=== PATIENT | female | born 1945 | race Caucasian/White ===

== ENCOUNTER 2017-04-13 20:35 | Inpatient (IN) | payer MEDICARE ==
[2017-04-13 21:50] LABS: #Eosinphils 0.1 thou/uL (0.0-0.7); #Lymphocytes 0.6 thou/uL (1.20-3.40); #Monocytes 0.4 thou/uL (0.11-0.59); #Neutrophils 3.9 thou/uL (1.40-6.50); %Eosinophils 1.2 % (0.0-10.0); %Monocytes 8.2 % (0.0-10.0); Anisocytosis SLIGHT = 6-15 cells (100X) (0-5/hpf); Hematocrit 28.3 % (36.0-47.0); Mean Platelet Volume 9.3 fL (7.4-10.4); Red Blood Cell (RBC) Count 3.78 mill/uL (4.20-5.40)
[2017-04-13 21:55] LABS: ALT (SGPT) 15 U/L (8-55); AST (SGOT) 17 U/L (5-34); Alkaline Phosphatase 99 U/L (40-150); Anion Gap 13 mmol/L (10-20); BUN (Urea Nitrogen) 11 mg/dL (9.8-20.1); Bilirubin, Total 0.6 mg/dL (0.2-1.2); CK (CPK) 68 U/L (29-168); Calc. Creatinine Clearance 0 mL/min (70-130); Calcium 8.7 mg/dL (7.8-10.44); Carbon Dioxide 26 mmol/L (23-31); Chloride 100 mmol/L (98-107); Estimated GFR-MDRD 74; Globulin 3.6 g/dL (2.4-3.5); Protein, Total 6.8 g/dL (6.0-8.3)
[2017-04-13 22:04] LABS: Troponin I 0.022 ng/mL (< 0.028)
--- NOTE | 2017-04-13 22:56 | RAD ---
RADIOGRAPH CHEST 1 VIEW: Date: 04/13/2017 Time: 9:07 p.m. HISTORY: A 71-year-old female with acute chest pain. COMPARISON: 10/21/2016 FINDINGS: There is cardiomegaly. Sternotomy wires are again noted. There is a few findings of diffuse pulmon anupama vascular engorgement, and another new finding of diffuse, mild, interstitial densities. The lat eral costophrenic angles are not significantly effaced. No pneumothorax or consolidation. IMPRESSION: Congestive heart failure with mild pulmonary interstitial edema. JN [] POS: [facility]
[2017-04-13] MEDS ORDERED: Ondansetron ODT 4 MG TAB SL PRN (23:21)
[2017-04-13] MEDS ORDERED: Ondansetron HCl/PF 4 MG/2 ML Vial IVP PRN (23:21)
[2017-04-13 23:49] VITALS: BMI 36.6
[2017-04-14 00:59] LABS: Troponin I 2.054 ng/mL (< 0.028)
[2017-04-14] MEDS ORDERED: Enoxaparin Sodium 120 MG/0.8 ML SYRINGE SC SCH ×2 (01:30→14:00)
[2017-04-14] MEDS ORDERED: Acetaminophen 325 MG TAB PO SCH (02:15)
[2017-04-14] MEDS ORDERED: Nitroglycerin 0.4 MG TAB (25 Tab Bottle) SL PRN (02:21)
[2017-04-14] MEDS ORDERED: Nitroglycerin 4.9 GM Bottle SL PRN (02:23)
[2017-04-14] MEDS ORDERED: HumaLOG 300 UNITS/3 ML VIAL SC PRN (02:23)
[2017-04-14] MEDS ORDERED: Dextrose 50% Abboject 50 ML SYRINGE SLOW IVP PRN (02:24)
[2017-04-14] MEDS ORDERED: Dextrose 5% in Water 1,000 ML IV PRN (02:24)
--- NOTE | 2017-04-14 03:18 | HP ---
PRIMARY CARE PHYSICIAN: Dr. Jd Goldman, practices in [place], [place]. PATIENT'S BEARING RING ASSEMBLER: Dr. Ramon Benítez at [facility] at [facility] in [place]. CHIEF COMPLAINT: Chest pain. HISTORY OF PRESENT ILLNESS: Ms. Shaw is a pleasant 71-year-old lady who was seen at [facility] on 04/14/2017. She reports that she had coronary artery bypass graft x3, last year. About 3 or 4 months ago, she s tarted having exertional dyspnea. It was found that one of her grafts was not working, and she had a procedure done at that time. Since then, she has had angina on a daily basis. It usually respond s to nitroglycerin. For the first time yesterday, the angina did not respond to nitroglycerin. She therefore presented to the emergency room. She describes that her pain was dull, aching, across the chest, pressure-like, nonradiating, worse w ith exercise. No known relieving factors. It was not accompanied by nausea or vomiting. The patient lives in [place], but was visiting [place] this weekend. REVIEW OF SYSTEMS: The following complete review of systems was negative, unless otherwise mentione d in the HPI or below: Constitutional: Weight loss or gain, sense of well-being, ability to conduct usual activities, exer cise tolerance. Skin/Breast: Rash, itching, changes in hair growth or loss, nail changes, breast lumps, tenderness, swelling, nipple discharge. Eyes: Vision, double vision, tearing, blind spots, pain. ENT/Mouth: Headaches (location, time of onset, duration, precipitating factors), vertigo, lighthead edness, injury. Vision, double vision, tearing, blind spots, pain, nose bleeding, colds, obstruction , discharge, dental difficulties, gingival bleeding, dentures, neck stiffness, pain, tenderness, mas ses in thyroid or other areas. Cardiovascular: Precordial pain, substernal distress, palpitations, syncope, dyspnea on exertion, o rthopnea, nocturnal paroxysmal dyspnea, edema, cyanosis, hypertension, heart murmurs, varicosities, phlebitis, claudication. Respiratory: Pain, shortness of breath, wheezing, stridor, cough, hemoptysis, fever or night sweats Gastrointestinal: Poor appetite, dysphagia, indigestion, abdominal pain, heartburn, eructation, dre sea, vomiting, hematemesis, jaundice, constipation, or diarrhea, abnormal stools (jose-colored, angus y, bloody, greasy, foul smelling), flatulence, hemorrhoids, recent changes in bowel habits. Genitourinary: Urgency, frequency, dysuria, nocturia, hematuria, polyuria, oliguria, unusual (or ch vinay in) color of urine, stones, hesitancy, change in size of stream, dribbling, acute retention or incontinence, libido, potency. Musculoskeletal: Pain, swelling, redness or heat of muscles or joints, limitation, of motion, muscu lar weakness, atrophy, cramps. Neurologic/Psychiatric: Convulsions, paralyses, tremor, incoordination, parasthesias, difficulties with memory of speech, sensory or motor disturbances, or muscular coordination (ataxia, tremor), emo tional problems, anxiety, depression, previous psychiatric care, unusual perceptions, hallucinations . Allergy/Immunologic: Skin rash, anemia, bleeding tendency, polydipsia, polyuria, intolerance to hea t or cold. PAST MEDICAL HISTORY: Significant for diabetes mellitus, coronary artery disease, dyslipidemia, hyp ertension, hypothyroidism. PAST SURGICAL HISTORY: Significant for coronary artery bypass graft, cardiac catheterization, bilat eral oophorectomy, wisdom tooth surgery, right foot second and third toe surgery, cholecystectomy, c esarean section x2, hysterectomy and thyroidectomy. PSYCHIATRIC HISTORY: Bipolar disorder. SOCIAL HISTORY: The patient denies tobacco use, alcohol use or recreational drug use. FAMILY HISTORY: Significant for a ruptured aorta in her Father, heart disease in her Mother and lef t ventricular thrombus in her Brother. CODE STATUS: I discussed her code status. She is FULL CODE. ALLERGIES: ADHESIVE TAPE. CURRENT MEDICATIONS: Aspirin 81 mg daily, Plavix 75 mg daily, Flonase 50 mcg 2 puffs 2 times a day, fluocinonide topical ointment 2 times a day, isosorbide mononitrate 30 mg daily, Lantus insulin 120 units subcutaneously daily, metformin 2000 mg daily, metoprolol 25 mg daily, colestipol 2 grams 3 t imes a day, Humalog insulin 20 units 3 times a day, Premarin cream. PHYSICAL EXAMINATION: GENERAL: Ms. Shaw is awake and alert, not in acute distress. She is obese. VITAL SIGNS: Blood pressure is 116/60, pulse is 71. She is breathing at rate of 16, and saturating 97% on room air. Temperature is 99.3 degrees Fahrenheit. EYES: No scleral icterus. No conjunctival pallor. ENT: Moist mucosal membranes, no oropharyngeal erythema or exudate. NECK: Supple, nontender, normal range of movement. Trachea is midline. RESPIRATORY: Accessory muscles of breathing are not active. Chest wall movements are symmetric alejandro aterally. LUNGS: Clear to auscultation without wheeze, rhonchi or crepitations. CARDIOVASCULAR: S1 and S2 are heard, regular. LUNGS: Peripheral pulses palpable. No carotid bruit, no pericardial rub. ABDOMEN: Distended, nontender, bowel sounds heard, no hepatomegaly, no splenomegaly. SKIN: She has what appears to be a small ruptured abscess over the left lower abdominal wall. Othe rwise, no rashes or subcutaneous nodules. NEUROLOGIC: Cranial nerves II through XII are intact. Deep tendon reflexes are 2+. MUSCULOSKELETAL: Power is 5/5 in all 4 extremities. Normal range of movement at all major extremit y joints. LYMPHATIC: No cervical lymphadenopathy. PSYCHIATRIC: Normal mood, normal affect, patient is oriented to person, place, and time. LABORATORY DATA: Ms. Shaw's labs and investigations were reviewed. I reviewed her electrocardiogr am, which shows normal sinus rhythm, with bifascicular block, no ST changes to suggest an acute ivory nary syndrome. I also reviewed her chest x-ray, which does not show any pulmonary infiltrates. She does have interstitial edema. Laboratory investigation show a normal white count, microcytic anemi a with hemoglobin 8.8, thrombocytopenia with platelet count 117,000, with last known platelet count of 96,000 on 10/21/2016, decreased sodium of 135, elevated glucose of 350, decreased albumin of 3.2, elevated globulin of 3.6, otherwise unremarkable comprehensive metabolic profile, elevated BNP of 6 75 and troponin I which is elevated at 2.054 at 0022 hours today, up from 0.022 at 2121 hours yester day. ASSESSMENT AND PLAN: Ms. Shaw is a pleasant 71-year-old lady who was seen at [facility] on 04/14/2017. Her problem list includes: 1. Chest pain: Most likely secondary to cardiac causes, we will also check D-dimer to rule out pul monary embolism. 2. Rln-SX-ocueitiri myocardial infarction: Ms. Shaw's troponin I has trended into the acute myoca rdial infarction territory. We will start her on low molecular weight heparin, continue Plavix and increase aspirin dose to 325 mg daily. We will check 2D echocardiogram and obtain Cardiology Servic e input. 3. Diabetes mellitus: Continue home medications, start Accu-Cheks and insulin sliding scale. 4. Dyslipidemia: Continue statins. 4. Hypothyroidism: Continue Synthroid. 6. Hypertension: Resume home medications, monitor vital signs and titrate antihypertensives as nee ded. Many thanks for allowing me to participate in your patient's care. Please feel free to contact me w ith any questions or concerns. LEVEL OF RISK: High. LEVEL OF COMPLEXITY: High. I am obtaining records from [facility], so that we can have a better understanding of her p revious cardiac issues.
[2017-04-14 03:45] LABS: #Eosinphils 0.1 thou/uL (0.0-0.7); #Monocytes 0.5 thou/uL (0.11-0.59); #Neutrophils 4.1 thou/uL (1.40-6.50); %Basophils 0.3 % (0.0-1.0); %Lymphocytes 17.1 % (21.0-51.0); %Monocytes 8.2 % (0.0-10.0); Hematocrit 26.6 % (36.0-47.0); Mean Platelet Volume 8.6 fL (7.4-10.4); Red Blood Cell (RBC) Count 3.56 mill/uL (4.20-5.40); White Blood Cell (WBC) Count 5.7 thou/uL (4.8-10.8)
[2017-04-14 03:48] LABS: Anion Gap 11 mmol/L (10-20); BUN (Urea Nitrogen) 11 mg/dL (9.8-20.1); Calc. Creatinine Clearance 150 mL/min (70-130); Calcium 8.4 mg/dL (7.8-10.44); Carbon Dioxide 26 mmol/L (23-31); Chloride 102 mmol/L (98-107); Estimated GFR-MDRD Greater than 90
[2017-04-14 03:58] LABS: Hemoglobin A1c 7.5 % (4.0-6.0)
[2017-04-14 04:04] LABS: Critical Call CKMBM 0
[2017-04-14] MEDS: Levothyroxine Sodium 150 MCG TAB PO SCH (06:00)
[2017-04-14] MEDS ORDERED: Levothyroxine Sodium 75 MCG TAB PO SCH (06:00)
[2017-04-14] MEDS ORDERED: metFORMIN XR 500 MG TAB PO SCH (08:00)
[2017-04-14 08:38] LABS: Troponin I 12.808 ng/mL (< 0.028)
[2017-04-14] MEDS ORDERED: Non-Formulary Item 1 EACH (Insulin Glargine,Hum.Rec.Anlog 70 UNIT) SQ SCH (09:00)
[2017-04-14] MEDS ORDERED: Aspirin 325 MG TAB PO SCH (09:00)
[2017-04-14] MEDS: Clopidogrel Bisulfate 75 MG TAB PO SCH (09:33)
[2017-04-14] MEDS: Insulin Detemir 100 UNITS/ML 70 UNITS in Pre-Filled Syringe 1 EACH SC SCH (09:37)
--- NOTE | 2017-04-14 12:07 | CT ---
CTA OF THE CHEST WITH CONTRAST: Date: 04/14/17 COMPARISON: None. HISTORY: Chest pain and shortness of breath. Patient had cardiac ablation 6 months ago. TECHNIQUE: Multiple contiguous axial images were obtained in a CT of the chest with contrast. Sagittal and ivory nal reformats were performed. FINDINGS: The pulmonary arteries are well opacified without filling defect to suggest pulmonary emboli. The he art is enlarged. Calcifications are seen in the coronary arteries and aorta. The patient is status p ost CABG. There is a small right pleural effusion. No focal infiltrates are seen in the lungs. No suspicious p ulmonary mass is present. The visualized subdiaphragmatic structures are unremarkable. Degenerative changes are seen in the sp ine. The chest wall soft tissues are unremarkable. IMPRESSION: 1. No evidence of pulmonary thromboembolism. 2. Small right pleural effusion. POS: [facility]
[2017-04-14] MEDS ORDERED: Nitroglycerin 50 MG/250 ML BOT 250 ML IVPB SCH (12:30)
[2017-04-14] MEDS: Aggrastat 12.5 MG/250 ML 250 ML IVPB SCH ×2 (13:35→23:23)
--- NOTE | 2017-04-14 13:54 | CON ---
DATE OF CONSULTATION: 04/14/2017 REASON FOR CONSULTATION: Non-Q myocardial infarction and chest pain. HISTORY OF PRESENT ILLNESS: Ms. Shaw is a pleasant 71-year-old woman with extensive cardiac histor y. She states she has had stent placed early last year. They failed and was followed by bypass lorena rosado x3 in 05/2016. This is all in [place], [place]. She then states how she had more symptoms and required another angiogram in July or August of this year. She was found to have a failed vera t of the three grafts. She also required rotablader followed by stent implantation to the proximal portion of the circumflex artery. She states she did well for several months and then has been havi ng recurrent episodes of pain. She is normally controlled with nitroglycerin. She does state glyce rin during this episode, it did not work and proceeded to the emergency room. Her troponin is gone from 2 to 6 to 12. She is currently pain free. She did have an episode this morning of pain upon w alking to the bathroom that has resolved. PAST MEDICAL AND SURGICAL HISTORY: Extensive cardiac history as described below, diabetes mellitus, hyperlipidemia, hypertension, hypothyroidism, oophorectomy, tooth extraction, cholecystectomy, C-se ction, hysterectomy, thyroidectomy, and bipolar disorder. SOCIAL HISTORY: No current tobacco or alcohol use. She has a very supportive . FAMILY HISTORY: Positive for CAD. ALLERGIES: ADHESIVE TAPE. HOME MEDICATIONS: Include aspirin, Plavix, isosorbide, Flonase, Lantus, metformin, metoprolol, erasmo stipol, Humalog and Premarin. REVIEW OF SYSTEMS: Ten-point review of systems is reviewed and is as above, otherwise negative. PHYSICAL EXAMINATION: GENERAL: The patient is a pleasant female who is in no acute distress. The patient appears her sta sergio age. VITAL SIGNS: Blood pressure 100/52, pulse 86, temperature 98.3. NEUROLOGIC: The patient is alert and oriented x3 with no focal neurologic deficits. HEENT: Sclerae without icterus. Mouth has moist mucous membranes with normal pallor. NECK: No JVD. Carotid upstroke brisk. No bruits bilaterally. LUNGS: Clear to auscultation with unlabored respirations. BACK: No scoliosis or kyphosis. CARDIAC: Regular rate and rhythm with normal S1 and S2. No S3 or S4 noted. No significant rubs, m urmurs, thrills, or gallops noted throughout the precordium. PMI is not displaced. There is no par asternal heave. ABDOMEN: Soft, nontender, nondistended. No peritoneal signs present. No hepatosplenomegaly. No a bnormal striae. EXTREMITIES: 2+ femoral and 2+ dorsalis pedis pulses. No cyanosis, clubbing, or edema. SKIN: No gross abnormalities. EKG: Normal sinus rhythm with right bundle branch block, ST wave changes suggesting ischemia. PERTINENT LABS: Hemoglobin is 8.6 and creatinine 0.6. IMPRESSION: 1. Non-Q myocardial infarction. 2. Coronary artery disease. 3. Status post bypass surgery. RECOMMENDATIONS: Ms. Shaw's cardiac history is certainly complex. The only records I have from he r previous workup include a stent placed to the circumflex artery after rotablader in early 2017. T here is no mention of the other anatomy. At this point, Ms. Shaw is chest pain free. Plan is to t ransfer to the ICU for IV nitroglycerin in addition to Aggrastat and continue Lovenox. I would like to obtain records and speak to her music copyist prior to proceeding. It is unusual for bypass t to occlude within the first 2 years. I am concerned about small vessel disease. She may also hav e had in-stent restenosis noted to the circumflex stent. I discussed coronary angiography and possi ble PCI. I discussed the procedure in full detail with Ms. Shaw. The risks of the procedure were also discussed. The risks included but not limited to the following: , stroke, CT, need for em ergency surgery, loss of limb, bleeding, and infection, as well as a reaction to the dye causing kid jeni failure and needing long-term dialysis. Other risks include acute stent thrombosis and restenos is, vessel dissection, perforation, need for emergency surgery in addition to distal embolization ca using chronic foot discomfort as well as amputation. All questions were answered. She has had a dr ug-coated stent placed in the past and we will proceed with drug-coated stent placement if needed. She has been told in the past that she will need Plavix for life. I am also concerned about her ane jose. She states she is chronically anemic, but has not required blood transfusions in the past. We will supplement with iron. She may potentially need a transfusion after the procedure if her hemog lobin decreases. Further recommendations pending the above.
[2017-04-14 19:29] LABS: Hematocrit 29.2 % (36.0-47.0)
[2017-04-14] MEDS: Atorvastatin Calcium 20 MG TAB PO SCH (20:27)
[2017-04-14] MEDS: Acetaminophen 325 MG TAB PO PRN (20:27)
[2017-04-15 04:59] LABS: #Eosinphils 0.1 thou/uL (0.0-0.7); #Lymphocytes 0.8 thou/uL (1.20-3.40); #Monocytes 0.6 thou/uL (0.11-0.59); #Neutrophils 4.8 thou/uL (1.40-6.50); %Basophils 0.5 % (0.0-1.0); %Eosinophils 1.3 % (0.0-10.0); %Lymphocytes 12.3 % (21.0-51.0); %Monocytes 8.8 % (0.0-10.0); Anion Gap 12 mmol/L (10-20); BUN (Urea Nitrogen) 11 mg/dL (9.8-20.1); Calc. Creatinine Clearance 145 mL/min (70-130); Calcium 8.3 mg/dL (7.8-10.44); Carbon Dioxide 24 mmol/L (23-31); Chloride 101 mmol/L (98-107); Estimated GFR-MDRD Greater than 90; Hematocrit 27.2 % (36.0-47.0); Mean Platelet Volume 9.7 fL (7.4-10.4); Red Blood Cell (RBC) Count 3.66 mill/uL (4.20-5.40); White Blood Cell (WBC) Count 6.2 thou/uL (4.8-10.8)
[2017-04-15] MEDS: Levothyroxine Sodium 150 MCG TAB PO SCH (06:34)
[2017-04-15] MEDS: Clopidogrel Bisulfate 75 MG TAB PO SCH (08:04)
[2017-04-15] MEDS: Insulin Detemir 100 UNITS/ML 70 UNITS in Pre-Filled Syringe 1 EACH SC SCH (08:07)
[2017-04-15] MEDS ORDERED: Aspirin 325 MG TAB PO SCH (09:00)
[2017-04-15] MEDS: Acetaminophen 325 MG TAB PO PRN (09:06)
[2017-04-15] MEDS ORDERED: Fentanyl 100 MCG/2 ML VIAL ONE (10:05)
[2017-04-15] MEDS ORDERED: Midazolam HCl 2 mg/2 ml Vial ONE ×2 (10:05→11:09)
--- NOTE | 2017-04-15 10:30 | PRG ---
DATE OF SERVICE: 04/15/2017 I visited with Ms. Shaw on the day prior to the procedure. She was doing well without any episodes of chest pain. She was tolerating the Lovenox and Aggrastat. She was also placed on IV nitroglyce rin. I did reach out to her primary heel scorer in [place] on the day of the procedure. She has had mul tiple stents noted in the past. She has a chronically occluded saphenous vein graft to an OM branch in addition to a chronically occluded right coronary artery. Her LAD was patent with a CLIFFORD to the LAD. She also had a recent stent placed to the circumflex artery. She did arrive in the [facility] short of breath. I spoke with her nurse who states she was comfortab le until the time we were bringing her down for an angiography and became anxious. She has now impr lico. Her lungs were clear. We will proceed with angiography. All questions from the patient were answered.
[2017-04-15] MEDS ORDERED: Heparin 10,000 UNITS/1 ML VIAL ONE (10:58)
[2017-04-15] MEDS ORDERED: Aggrastat 12.5 MG/250 ML 250 ML ONE (11:09)
[2017-04-15] MEDS ORDERED: Milk Of Magnesia 30 ML UDCUP PO PRN (11:32)
[2017-04-15] MEDS ORDERED: Acetaminophen/Codeine 30-300mg Tablet PO PRN (11:32)
[2017-04-15] MEDS ORDERED: Mag-Al 1200 mg/1200 mg/30 ML UDCUP PO PRN (11:32)
[2017-04-15] MEDS ORDERED: cloNIDine 0.1 MG TAB PO PRN (11:32)
[2017-04-15] MEDS ORDERED: Sodium Chloride 0.9% 1,000 ML IV SCH (11:45)
[2017-04-15] MEDS ORDERED: Aggrastat 12.5 MG/250 ML 250 ML IVPB SCH (11:45)
[2017-04-15] MEDS: Insulin Regular 300 UNITS/3 ML VIAL SC PRN ×2 (12:13→18:12)
[2017-04-15] MEDS ORDERED: Clopidogrel Bisulfate 300 MG TAB ONE (14:53)
--- NOTE | 2017-04-15 15:15 | EKG ---
Test Reason : POST STENT X 1 G/RCA Blood Pressure : / mmHG Vent. Rate : 092 BPM Atrial Rate : 092 BPM P-R Int : 000 ms QRS Dur : 162 ms QT Int : 450 ms P-R-T Axes : 000 -71 135 degrees QTc Int : 556 ms Normal sinus rhythm Right bundle branch block Left anterior fascicular block Bifascicular block * ACUTE MA * Abnormal ECG Confirmed by HALEY THORNTON ([id number]) on 04/15/2017 3:14:54 PM Referred By: AUSTIN Confirmed By:HALEY THORNTON
[2017-04-15] MEDS ORDERED: Iopamidol 370 76% 100 ML VIAL ONE (16:21)
[2017-04-15] MEDS ORDERED: Iopamidol 370 76% 50 ML VIAL FS ONE (16:21)
--- NOTE | 2017-04-15 17:23 | PDOC.PN ---
- Subjective Encounter Start Date: 04/15/17 Encounter Start Time: 17:20 no cp no sob no f/c on iv nitroglycerin going for cath today - Objective Resuscitation Status: Resuscitation Status FULL:Full Resuscitation MAR Reviewed: Yes Vital Signs & Weight: Vital Signs (12 hours) Temp Pulse Resp Pulse Ox 04/15/17 17:00 98.1 F 04/15/17 12:00 98.0 F 04/15/17 07:38 95 04/15/17 07:25 98.2 F 83 20 95 04/15/17 07:00 98.2 F Weight Weight 247 lb 11.2 oz Most Recent Monitor Data Heart Rate from ECG 85 NIBP 105/58 NIBP BP-Mean 68 Respiration from ECG 28 SpO2 95 I&O: 04/14/17 04/15/17 04/16/17 06:59 06:59 06:59 Intake Total 1474.7 540 Output Total 200 1630 175 Balance -200 -155.3 365 Result Diagrams: 04/15/17 04:19 04/15/17 04:19 Additional Labs: Accuchecks 04/15/17 04/14/17 04/14/17 12:08 19:25 17:15 POC Glucose 197 H 183 H 137 H 04/14/17 04/14/17 04/13/17 12:00 06:02 23:21 POC Glucose 98 98 224 H Phys Exam - Physical Examination Constitutional: NAD HEENT: PERRLA Neck: no JVD Respiratory: no rales Cardiovascular: no significant murmur Gastrointestinal: no distention Musculoskeletal: pulses present Neurological: normal sensation Psychiatric: A&O x 3 Skin: normal turgor Dx/Plan (1) NSTEMI (non-ST elevated myocardial infarction) Code(s): I21.4 - NON-ST ELEVATION (NSTEMI) MYOCARDIAL INFARCTION Status: Acute (2) Diabetes mellitus Code(s): E11.9 - TYPE 2 DIABETES MELLITUS WITHOUT COMPLICATIONS Status: Acute (3) HTN (hypertension) Code(s): I10 - ESSENTIAL (PRIMARY) HYPERTENSION Status: Acute (4) Hyperlipidemia Code(s): E78.5 - HYPERLIPIDEMIA, UNSPECIFIED Status: Acute (5) Obesity (BMI 30-39.9) Code(s): E66.9 - OBESITY, UNSPECIFIED Status: Acute - Plan * doing well on iv nitroglycerin * for cath today * f/u card plan *
[2017-04-15] MEDS: ALPRAZolam 0.25 MG TAB PO PRN (19:52)
--- NOTE | 2017-04-15 21:16 | CON ---
DATE OF SERVICE: 04/15/2017 HISTORY: Ivet Shaw is a pleasant 71-year-old female from [facility]. She is here for ongoing chest pain evaluation. She had a bypass done a year ago; and shortly therea fter, she started having chest pain with exertion. Catheterization revealed a graft issue for which she underwent a Roto-Rooter procedure. For a period of time, she was still having some chest pain but is relieved with the nitroglycerin. As of yesterday that pain did not get relieved, came to the ER. She underwent cardiac catheterization today. She was found to have a single-vessel blockage i n one of the bypasses, a stent was placed in. To note, she is a nonsmoker. She is excessively obese. PAST MEDICAL HISTORY: Hypothyroidism, hypertension, diabetes, coronary artery disease. PAST SURGICAL HISTORY: Multiple bypasses, thyroid surgery, hysterectomy for cancer, gallbladder, C- section, foot surgery. REVIEW OF SYSTEMS: Otherwise, negative. MEDICATIONS FROM HOME: Metformin 1000, Protonix, nitroglycerin, metoprolol 25 Synthroid, insulin, H umalog, Plavix, calcium. PHYSICAL EXAMINATION: VITAL SIGNS: Sats 98%, pulse 80, blood pressure 130/80, respirations 18. Mallampati score is 3. CHEST: Reveals no wheezing or crackles. CARDIAC: Normal S1, S2. No gallops. ABDOMEN: Soft, no masses. LABORATORY DATA: White count 6000, H\T\H 8 and 27, platelet count 141. Electrolytes are normal. IMPRESSION: 1. Coronary artery disease, unstable angina, status post stent. 2. Morbid obesity. She had a sleep study done 4 years ago. I think that she needs to have a repea t sleep study. 3. Diabetes. 4. Hypertension with serious unknown urinary problems. PLAN: 1. Continue present cardiac care. 2. We will follow while in the ICU.
[2017-04-15] MEDS: Atorvastatin Calcium 20 MG TAB PO SCH (22:31)
[2017-04-15] MEDS: Zolpidem Tartrate 5 MG TAB PO PRN (22:31)
[2017-04-16] MEDS: Insulin Regular 300 UNITS/3 ML VIAL SC PRN ×5 (00:11→22:02)
[2017-04-16] MEDS: ALPRAZolam 0.25 MG TAB PO PRN ×3 (02:24→20:25)
[2017-04-16] MEDS: Acetaminophen 325 MG TAB PO PRN (02:24)
[2017-04-16 04:42] LABS: #Lymphocytes 0.7 thou/uL (1.20-3.40); #Monocytes 0.9 thou/uL (0.11-0.59); #Neutrophils 10.3 thou/uL (1.40-6.50); %Eosinophils 0.1 % (0.0-10.0); %Lymphocytes 5.9 % (21.0-51.0); %Monocytes 7.4 % (0.0-10.0); Hematocrit 29.6 % (36.0-47.0); Mean Platelet Volume 8.7 fL (7.4-10.4); Red Blood Cell (RBC) Count 3.97 mill/uL (4.20-5.40); White Blood Cell (WBC) Count 11.9 thou/uL (4.8-10.8)
[2017-04-16 05:12] LABS: ALT (SGPT) 26 U/L (8-55); AST (SGOT) 95 U/L (5-34); Alkaline Phosphatase 98 U/L (40-150); Anion Gap 15 mmol/L (10-20); BUN (Urea Nitrogen) 18 mg/dL (9.8-20.1); Bilirubin, Total 1.9 mg/dL (0.2-1.2); Calc. Creatinine Clearance 119 mL/min (70-130); Calcium 8.4 mg/dL (7.8-10.44); Carbon Dioxide 21 mmol/L (23-31); Chloride 99 mmol/L (98-107); Estimated GFR-MDRD 74; Globulin 3.6 g/dL (2.4-3.5); Protein, Total 6.8 g/dL (6.0-8.3)
[2017-04-16] MEDS: Levothyroxine Sodium 150 MCG TAB PO SCH (05:27)
[2017-04-16] MEDS: Clopidogrel Bisulfate 75 MG TAB PO SCH (08:56)
[2017-04-16] MEDS: Insulin Detemir 100 UNITS/ML 70 UNITS in Pre-Filled Syringe 1 EACH SC SCH (08:58)
[2017-04-16] MEDS ORDERED: Sodium Chloride 0.65% Nasal 44 ML BOT EA NARE PRN (10:37)
--- NOTE | 2017-04-16 12:41 | PDOC.PN ---
- Subjective Encounter Start Date: 04/16/17 Encounter Start Time: 12:39 Patient seen and examined. No new complaints. No overnight events - Objective Resuscitation Status: Resuscitation Status FULL:Full Resuscitation MAR Reviewed: Yes Vital Signs & Weight: Vital Signs (12 hours) Temp Pulse Resp Pulse Ox 04/16/17 12:00 98.3 F 04/16/17 08:00 98.3 F 04/16/17 07:30 98.3 F 84 23 H 98 04/16/17 07:00 98.3 F 04/16/17 04:00 98 F 04/16/17 02:48 99 Weight Weight 255 lb 4.725 oz Most Recent Monitor Data Heart Rate from ECG 83 NIBP 107/71 NIBP BP-Mean 82 Respiration from ECG 34 SpO2 92 I&O: 04/15/17 04/16/17 04/17/17 06:59 06:59 06:59 Intake Total 1474.7 1515 720 Output Total 1630 575 240 Balance -155.3 940 480 Result Diagrams: 04/16/17 04:11 04/16/17 04:11 Additional Labs: Accuchecks 04/16/17 04/16/17 04/16/17 11:57 06:39 02:10 POC Glucose 266 H 226 H 221 H 04/16/17 04/15/17 00:08 18:10 POC Glucose 200 H 200 H Phys Exam - Physical Examination Constitutional: NAD HEENT: PERRLA Neck: no JVD Respiratory: no wheezing Cardiovascular: no significant murmur Gastrointestinal: non-tender Musculoskeletal: pulses present Neurological: moves all 4 limbs Psychiatric: A&O x 3 Dx/Plan (1) NSTEMI (non-ST elevated myocardial infarction) Code(s): I21.4 - NON-ST ELEVATION (NSTEMI) MYOCARDIAL INFARCTION Status: Acute Comment: s/p cath with stent on 04/15 (2) Diabetes mellitus Code(s): E11.9 - TYPE 2 DIABETES MELLITUS WITHOUT COMPLICATIONS Status: Acute (3) HTN (hypertension) Code(s): I10 - ESSENTIAL (PRIMARY) HYPERTENSION Status: Acute (4) Hyperlipidemia Code(s): E78.5 - HYPERLIPIDEMIA, UNSPECIFIED Status: Acute (5) Obesity (BMI 30-39.9) Code(s): E66.9 - OBESITY, UNSPECIFIED Status: Acute (6) NICKI (obstructive sleep apnea) Code(s): G47.33 - OBSTRUCTIVE SLEEP APNEA (ADULT) (PEDIATRIC) Status: Acute Comment: out pt sleep study - Plan * f/u card plan * start levemir 5 bid * f/u cxr * encourage mobilization
--- NOTE | 2017-04-16 14:02 | PRG ---
DATE OF SERVICE: 04/16/2017 SUBJECTIVE: This morning, she is awake, alert, responsive. She is weak. She is having difficulty breathing, but denies any chest pain, lightheadedness. OBJECTIVE: VITAL SIGNS: Blood pressure 110/74, sats are 96%, pulse 80. CHEST: Chest reveals decreased breath sounds, no wheezing. CARDIAC: Normal S1, S2. No gallops. ABDOMEN: Soft, no masses. LABORATORY DATA: White count 9000, H\T\H is 9 and 29, platelet count 176. Lytes are normal, sodium 131. IMPRESSION: Status post catheterization and stent, morbid obesity, BMI 37, 255 pounds,probable obstructive sleep apnea. PLAN: I agree with ambulation. We will follow while in the hospital. WES
--- NOTE | 2017-04-16 15:00 | EKG ---
Test Reason : Blood Pressure : / mmHG Vent. Rate : 085 BPM Atrial Rate : 085 BPM P-R Int : 196 ms QRS Dur : 154 ms QT Int : 456 ms P-R-T Axes : 036 -67 155 degrees QTc Int : 542 ms Normal sinus rhythm Right bundle branch block Left anterior fascicular block Bifascicular block Abnormal ECG Confirmed by HALEY THORNTON ([id number]) on 04/16/2017 2:59:50 PM Referred By: AUSTIN Confirmed By:HALEY THORNTON
[2017-04-16] MEDS ORDERED: Furosemide 40 MG/4 ML VIAL SLOW IVP SCH (19:30)
--- NOTE | 2017-04-16 20:14 | CON ---
DATE OF CONSULTATION: 04/16/2017 SUBJECTIVE: Ms. Shaw today feels better, but still is short of breath. No chest pain or pressure noted. She did ambulate without issues, although her ambulation was minimal. OBJECTIVE: CURRENT VITAL SIGNS: Blood pressure 110/63, pulse 79, temperature afebrile. LUNGS: Clear to auscultation. HEART: Regular rate and rhythm. ABDOMEN: Soft, nontender, nondistended. EXTREMITIES: No significant edema. LABORATORY DATA: Hemoglobin 9.3, creatinine 0.77. IMPRESSION: Non-Q wave myocardial infarction. RECOMMENDATIONS: I had a long discussion with Ms. Shaw this morning in addition to this afternoon about how to proceed. She underwent successful intervention to the saphenous vein graft to the [facility] t coronary artery. She also had severe stenosis present to the near ostial circumflex artery in two areas. I discussed repeat coronary angiography in full detail to Ms. Shaw. The risks included but are not limited to the following: , stroke, NH, need for emergency surgery, loss of limb, bleeding, a nd infection, as well as a reaction to the dye causing kidney failure and needing long-term dialysis . I also discussed the risks of PCI to include all of the above including coronary dissection and p erforation in addition to acute stent thrombosis and restenosis. All questions about the procedure were answered. Given the above, the patient agreed to proceed with coronary angiography and possibl e PCI. All questions were answered. We will proceed with a drug-coated stent if needed. I stated this was not felt to be low risk procedure. This is felt to be an intermediate to high risk procedure given the location in addition to calcification. Atherectomy cannot be repeated due to a stent placed in September. She may have metal exposed. She will have to undergo balloon angioplasty followed by stent placement. She had a 2.75 stent placed in September. Risks include dissection, perforation, NH in add ition to . This was discussed with the patient. I also discussed the option of medical therap y. She states since she is in the hospital, she elects to proceed with the procedure. We will use an Impella for backup support. Otherwise, I have no further recommendations.
[2017-04-16] MEDS ORDERED: Insulin Detemir 100 UNITS/ML 5 UNITS in Pre-Filled Syringe SC SCH (21:00)
[2017-04-16] MEDS: Atorvastatin Calcium 20 MG TAB PO SCH (21:59)
[2017-04-16] MEDS: Zolpidem Tartrate 5 MG TAB PO PRN (23:44)
[2017-04-17 04:45] LABS: #Eosinphils 0.1 thou/uL (0.0-0.7); #Lymphocytes 1.2 thou/uL (1.20-3.40); #Neutrophils 8.6 thou/uL (1.40-6.50); %Basophils 0.1 % (0.0-1.0); %Eosinophils 0.8 % (0.0-10.0); %Lymphocytes 11.4 % (21.0-51.0); %Monocytes 9.1 % (0.0-10.0); Hematocrit 27.5 % (36.0-47.0); Mean Platelet Volume 8.5 fL (7.4-10.4); Red Blood Cell (RBC) Count 3.72 mill/uL (4.20-5.40); White Blood Cell (WBC) Count 10.9 thou/uL (4.8-10.8)
[2017-04-17 05:15] LABS: Anion Gap 9 mmol/L (10-20); BUN (Urea Nitrogen) 20 mg/dL (9.8-20.1); Calc. Creatinine Clearance 142 mL/min (70-130); Calcium 8.6 mg/dL (7.8-10.44); Carbon Dioxide 28 mmol/L (23-31); Chloride 98 mmol/L (98-107); Estimated GFR-MDRD 88; Phosphorus 2.1 mg/dL (2.3-4.7)
[2017-04-17] MEDS ORDERED: Communication Order-Pharmacy FS SCH (06:00)
[2017-04-17] MEDS: Sodium Chloride 0.9% 1,000 ML IV SCH ×2 (06:23→15:02)
[2017-04-17] MEDS: Levothyroxine Sodium 150 MCG TAB PO SCH (06:32)
[2017-04-17] MEDS ORDERED: Diazepam 5 MG TAB PO SCH (06:45)
[2017-04-17] MEDS ORDERED: Fentanyl 100 MCG/2 ML VIAL ONE (07:20)
[2017-04-17] MEDS ORDERED: Midazolam HCl 2 mg/2 ml Vial ONE (07:20)
[2017-04-17] MEDS ORDERED: Heparin 10,000 UNITS/1 ML VIAL ONE ×2 (07:47→08:26)
[2017-04-17] MEDS ORDERED: Nitroglycerin 100MG/250ML BOT 250 ML ONE (08:31)
[2017-04-17] MEDS: Insulin Detemir 100 UNITS/ML 5 UNITS in Pre-Filled Syringe SC SCH (10:57)
[2017-04-17] MEDS: Insulin Regular 300 UNITS/3 ML VIAL SC PRN ×3 (10:58→21:21)
[2017-04-17] MEDS: Clopidogrel Bisulfate 75 MG TAB PO SCH (10:58)
[2017-04-17] MEDS ORDERED: Nitroglycerin 0.4 MG TAB 1 EACH SL PRN (11:10)
[2017-04-17] MEDS ORDERED: Milk Of Magnesia 30 ML UDCUP PO PRN (11:10)
[2017-04-17] MEDS ORDERED: Mag-Al 1200 mg/1200 mg/30 ML UDCUP PO PRN (11:10)
--- NOTE | 2017-04-17 11:12 | PRG ---
DATE OF SERVICE: 04/17/2017 This morning she is awake, alert, responsive, status post cath with 2 additional stents. PHYSICAL EXAMINATION: VITAL SIGNS: Temperature 98, respirations 23, sats 96, blood pressure is 100/53. CHEST: Chest reveals decreased breath sounds, no wheezing. CARDIAC: Normal S1, S2. ABDOMEN: Soft, no masses. Blood sugar 173, TSH is normal. She still hyponatremic at 131. White count 10,000. IMPRESSION: 1. Coronary artery disease status post multiple stents. 2. Abnormal x-ray. 3. Diabetes. Today's x-ray shows a nonspecific infiltrate in the left upper lung with a small right-sided pleural effusion. PLAN: Since she is afebrile hold off on antibiotics for the time being. If she starts coughing any purulent sputum, may initiate antibiotics at that time.
[2017-04-17] MEDS ORDERED: Sodium Chloride 0.9% 1,000 ML IV SCH (11:15)
--- NOTE | 2017-04-17 11:54 | RAD ---
ONE VIEW CHEST: Comparison: 04-13-17 History: Status post catheterization. FINDINGS: Portable upright chest demonstrates sternotomy wires. Heart is enlarged. There is an increased opaci ty, left perihilar in distribution. Focal area of atelectasis is suspected given that there is no co rresponding finding on a CT performed on 04-14-17. There is a small right sided pleural effusion. Pneumothorax is not appreciated. IMPRESSION: 1. Enlarged cardiac silhouette. 2. Small right pleural effusion. 3. Increased density in the left perihilar region which may represent focal area of atelectasis. Nat rt term follow up two view chest radiograph is recommended. 4. No evidence of avascular calcification. Code T POS: LOLI
[2017-04-17] MEDS ORDERED: Iopamidol 370 76% 100 ML VIAL ONE (13:16)
[2017-04-17] MEDS ORDERED: Iopamidol 370 76% 50 ML VIAL FS ONE (13:16)
--- NOTE | 2017-04-17 13:28 | PDOC.PN ---
- Subjective Encounter Start Date: 04/17/17 Encounter Start Time: 13:26 Patient seen and examined. No new complaints. No overnight events - Objective Resuscitation Status: Resuscitation Status FULL:Full Resuscitation MAR Reviewed: Yes Vital Signs & Weight: Vital Signs (12 hours) Temp Pulse Resp 04/17/17 11:00 98.5 F 04/17/17 10:01 98.4 F 75 23 H 04/17/17 04:00 98.7 F Weight Weight 253 lb 8.505 oz Most Recent Monitor Data Heart Rate from ECG 75 NIBP 102/50 NIBP BP-Mean 75 Respiration from ECG 23 SpO2 96 I&O: 04/16/17 04/17/17 04/18/17 06:59 06:59 06:59 Intake Total 1515 1810 600 Output Total 575 350 Balance 940 1460 600 Result Diagrams: 04/19/17 03:47 04/18/17 16:38 Additional Labs: Accuchecks 04/17/17 04/16/17 04/16/17 10:55 21:58 17:05 POC Glucose 191 H 313 H 299 H Phys Exam - Physical Examination Constitutional: NAD HEENT: PERRLA Neck: no nodes Respiratory: no wheezing Cardiovascular: no significant murmur Gastrointestinal: soft Musculoskeletal: pulses present Neurological: normal sensation Psychiatric: A&O x 3 Dx/Plan (1) NSTEMI (non-ST elevated myocardial infarction) Code(s): I21.4 - NON-ST ELEVATION (NSTEMI) MYOCARDIAL INFARCTION Status: Acute Comment: s/p cath with stent on 04/15 (2) Diabetes mellitus Code(s): E11.9 - TYPE 2 DIABETES MELLITUS WITHOUT COMPLICATIONS Status: Acute (3) HTN (hypertension) Code(s): I10 - ESSENTIAL (PRIMARY) HYPERTENSION Status: Acute (4) Hyperlipidemia Code(s): E78.5 - HYPERLIPIDEMIA, UNSPECIFIED Status: Acute (5) Obesity (BMI 30-39.9) Code(s): E66.9 - OBESITY, UNSPECIFIED Status: Acute (6) NICKI (obstructive sleep apnea) Code(s): G47.33 - OBSTRUCTIVE SLEEP APNEA (ADULT) (PEDIATRIC) Status: Acute Comment: out pt sleep study - Plan * cont current mx * f/u cardiology plan
[2017-04-17] MEDS ORDERED: Clopidogrel Bisulfate 300 MG TAB ONE (14:12)
--- NOTE | 2017-04-17 14:55 | EKG ---
Test Reason : POST STENT X 2 Blood Pressure : / mmHG Vent. Rate : 077 BPM Atrial Rate : 077 BPM P-R Int : 186 ms QRS Dur : 166 ms QT Int : 456 ms P-R-T Axes : 022 -72 133 degrees QTc Int : 516 ms Normal sinus rhythm Right bundle branch block Left anterior fascicular block Bifascicular block Abnormal ECG Confirmed by HALEY THORNTON ([id number]) on 04/17/2017 2:55:15 PM Referred By: A[place]IN Confirmed By:HALEY THORNTON
[2017-04-17] MEDS: ALPRAZolam 0.25 MG TAB PO PRN ×2 (15:03→22:13)
[2017-04-17] MEDS: Atorvastatin Calcium 20 MG TAB PO SCH (21:18)
[2017-04-17] MEDS: Zolpidem Tartrate 5 MG TAB PO PRN (23:41)
[2017-04-18] MEDS: Sodium Chloride 0.9% 1,000 ML IV SCH ×4 (03:00→15:48)
[2017-04-18 04:48] LABS: #Eosinphils 0.2 thou/uL (0.0-0.7); #Lymphocytes 0.8 thou/uL (1.20-3.40); #Monocytes 0.9 thou/uL (0.11-0.59); #Neutrophils 6.7 thou/uL (1.40-6.50); %Basophils 0.3 % (0.0-1.0); %Eosinophils 1.8 % (0.0-10.0); %Lymphocytes 9.7 % (21.0-51.0); %Monocytes 10.6 % (0.0-10.0); Hematocrit 24.9 % (36.0-47.0); Mean Platelet Volume 8.5 fL (7.4-10.4); Red Blood Cell (RBC) Count 3.31 mill/uL (4.20-5.40); White Blood Cell (WBC) Count 8.6 thou/uL (4.8-10.8)
[2017-04-18 05:16] LABS: ALT (SGPT) 23 U/L (8-55); AST (SGOT) 39 U/L (5-34); Alkaline Phosphatase 107 U/L (40-150); Anion Gap 10 mmol/L (10-20); BUN (Urea Nitrogen) 21 mg/dL (9.8-20.1); Bilirubin, Total 1.6 mg/dL (0.2-1.2); Calc. Creatinine Clearance 136 mL/min (70-130); Carbon Dioxide 24 mmol/L (23-31); Chloride 99 mmol/L (98-107); Estimated GFR-MDRD 84; Globulin 3.3 g/dL (2.4-3.5); Protein, Total 6.2 g/dL (6.0-8.3)
[2017-04-18] MEDS: Insulin Regular 300 UNITS/3 ML VIAL SC PRN ×4 (05:55→21:34)
[2017-04-18] MEDS: Levothyroxine Sodium 150 MCG TAB PO SCH (05:55)
[2017-04-18] MEDS: Clopidogrel Bisulfate 75 MG TAB PO SCH (08:46)
[2017-04-18] MEDS: Insulin Detemir 100 UNITS/ML 5 UNITS in Pre-Filled Syringe SC SCH (08:49)
[2017-04-18] MEDS: ALPRAZolam 0.25 MG TAB PO PRN ×2 (10:06→15:45)
--- NOTE | 2017-04-18 12:25 | PDOC.PN ---
- Subjective Encounter Start Date: 04/18/17 Encounter Start Time: 12:24 Patient seen and examined. No new complaints. No overnight events - Objective Resuscitation Status: Resuscitation Status FULL:Full Resuscitation MAR Reviewed: Yes Vital Signs & Weight: Vital Signs (12 hours) Temp Pulse Pulse Resp BP Pulse Ox 04/18/17 12:12 98.5 F 84 18 125/90 100 04/18/17 12:00 98.5 F 04/18/17 11:25 82 26 H 100 04/18/17 11:23 100 04/18/17 08:00 98.1 F 04/18/17 04:00 98.5 F Weight Weight 253 lb 8.505 oz Most Recent Monitor Data Heart Rate from ECG 85 NIBP 125/90 NIBP BP-Mean 118 Respiration from ECG 21 SpO2 100 I&O: 04/17/17 04/18/17 04/19/17 06:59 06:59 06:59 Intake Total 1810 2918 240 Output Total 350 Balance 1460 2918 240 Result Diagrams: 04/18/17 03:55 04/18/17 03:55 Additional Labs: Accuchecks 04/18/17 04/17/17 04/17/17 05:54 21:18 16:39 POC Glucose 190 H 281 H 263 H Phys Exam - Physical Examination HEENT: PERRLA Neck: no JVD Respiratory: no rales Cardiovascular: no significant murmur Gastrointestinal: non-tender Musculoskeletal: pulses present Neurological: moves all 4 limbs Psychiatric: A&O x 3 Dx/Plan (1) NSTEMI (non-ST elevated myocardial infarction) Code(s): I21.4 - NON-ST ELEVATION (NSTEMI) MYOCARDIAL INFARCTION Status: Acute Comment: s/p cath with stent on 04/15 (2) Diabetes mellitus Code(s): E11.9 - TYPE 2 DIABETES MELLITUS WITHOUT COMPLICATIONS Status: Acute (3) HTN (hypertension) Code(s): I10 - ESSENTIAL (PRIMARY) HYPERTENSION Status: Acute (4) Hyperlipidemia Code(s): E78.5 - HYPERLIPIDEMIA, UNSPECIFIED Status: Acute (5) Obesity (BMI 30-39.9) Code(s): E66.9 - OBESITY, UNSPECIFIED Status: Acute (6) NICKI (obstructive sleep apnea) Code(s): G47.33 - OBSTRUCTIVE SLEEP APNEA (ADULT) (PEDIATRIC) Status: Acute Comment: out pt sleep study - Plan * microcytic anemia - getting blood * check fobt * f/u card plan
--- NOTE | 2017-04-18 12:27 | PRG ---
DATE OF SERVICE: 04/18/2017 SUBJECTIVE: Ms. Shaw is complaining of shortness of breath. She states she has difficulty lying f lat due to shortness of breath. Her LVEF was estimated at 50%-55%. She does have grade II diastoli c dysfunction. She is also found to be anemic, which is not surprising. I anticipated decreasing b lood count after recent angio. PHYSICAL EXAMINATION: VITAL SIGNS: Blood pressure 116/69, pulse 82, respirations 20. LUNGS: Decreased breath sounds bilaterally. HEART: Regular rate and rhythm. ABDOMEN: Soft, nontender, nondistended. EXTREMITIES: No edema. IMAGING: Chest x-ray dated 04/17/2017, small right-sided pleural effusion with an area suggesting a small focal area of atelectasis. IMPRESSION: 1. Shortness of breath. 2. Severe coronary artery disease. 3. Status post stent placement. 4. Status post bypass surgery. 5. Anemia. RECOMMENDATIONS: I anticipated a decrease in her hemoglobin. I was going to hold off on transfusio n, but given continued symptoms, we would recommend 2 units of packed red blood cells with Lasix in between. We will also premedicate with Tylenol and Benadryl. Her CLIFFORD to the LAD is patent. She now has appropriate flow noted to the circumflex distribution an d mid distal right coronary artery.
--- NOTE | 2017-04-18 14:02 | PRG ---
DATE OF SERVICE: 04/18/2017 SUBJECTIVE: This morning, she is awake, alert and responsive. No shortness of breath, no pain. PHYSICAL EXAMINATION: VITAL SIGNS: O2 sat is adequate at 96 and maximum temperature 98. Denies any fever or chills. CHEST: Decreased breath sounds without any wheezing. CARDIAC: Normal S1, S2. ABDOMEN: Soft, no masses. LABORATORY DATA: Sodium is 129. White count is 8.6, H and H is 7 and 24, platelet count normal. IMPRESSION: 1. Status post cath. 2. Abnormal x-ray. 3. Probable sleep apnea. 4. Hypothyroidism. 5. Hyponatremia. PLAN: 1. Continue present treatment. 2. Ambulation, move to the ICU when it is okay with Cardiology. We will follow.
[2017-04-18] MEDS ORDERED: Furosemide 40 MG/4 ML VIAL ONE (14:35)
[2017-04-18] MEDS ORDERED: Furosemide 20 MG/2 ML VIAL SLOW IVP SCH (15:45)
[2017-04-18 16:07] LABS: Bilirubin Negative (Negative); Blood, Urine Small (Negative); Glucose, Urine (Dipstick) 500 mg/dL (Negative); Ketone, Urine Negative (Negative); Nitrite Negative (Negative); Protein, Urine (Dipstick) 30 mg/dL (Neg-Trace)
[2017-04-18 16:09] LABS: Bacteria/HPF None Seen HPF (None Seen); Hyaline Casts/LPF 0-3 HYALINE CAST LPF (0-3 Hyaline); Squamous Epithelial 0-3 HPF (0-3)
[2017-04-18 17:11] LABS: Anion Gap 12 mmol/L (10-20); BUN (Urea Nitrogen) 21 mg/dL (9.8-20.1); Calc. Creatinine Clearance 122 mL/min (70-130); Calcium 8.4 mg/dL (7.8-10.44); Carbon Dioxide 22 mmol/L (23-31); Chloride 96 mmol/L (98-107); Estimated GFR-MDRD 74
[2017-04-18] MEDS: Zolpidem Tartrate 5 MG TAB PO PRN (21:33)
[2017-04-18] MEDS: Insulin Detemir 100 UNITS/ML 8 UNITS in Pre-Filled Syringe SC SCH (21:34)
[2017-04-18] MEDS: Atorvastatin Calcium 20 MG TAB PO SCH (21:34)
[2017-04-19 04:21] LABS: #Eosinphils 0.2 thou/uL (0.0-0.7); #Lymphocytes 0.8 thou/uL (1.20-3.40); #Neutrophils 7.1 thou/uL (1.40-6.50); %Basophils 0.1 % (0.0-1.0); %Eosinophils 2.1 % (0.0-10.0); %Lymphocytes 9.3 % (21.0-51.0); %Monocytes 10.7 % (0.0-10.0); Hematocrit 30.9 % (36.0-47.0); Mean Platelet Volume 8.3 fL (7.4-10.4); Red Blood Cell (RBC) Count 3.99 mill/uL (4.20-5.40); White Blood Cell (WBC) Count 9.1 thou/uL (4.8-10.8)
[2017-04-19] MEDS: Levothyroxine Sodium 150 MCG TAB PO SCH (05:51)
[2017-04-19] MEDS: Insulin Regular 300 UNITS/3 ML VIAL SC PRN ×3 (05:51→18:06)
[2017-04-19] MEDS: Clopidogrel Bisulfate 75 MG TAB PO SCH (07:12)
[2017-04-19] MEDS: Insulin Detemir 100 UNITS/ML 8 UNITS in Pre-Filled Syringe SC SCH (09:39)
[2017-04-19] MEDS ORDERED: Bisacodyl 5 MG TAB PO PRN (11:54)
[2017-04-19] MEDS: ALPRAZolam 0.25 MG TAB PO PRN ×2 (11:56→18:55)
--- NOTE | 2017-04-19 12:48 | PDOC.PN ---
- Subjective Encounter Start Date: 04/19/17 Encounter Start Time: 12:45 constipated no n/v no f/c - Objective Resuscitation Status: Resuscitation Status FULL:Full Resuscitation MAR Reviewed: Yes Vital Signs & Weight: Vital Signs (12 hours) Temp Pulse Pulse Pulse Resp BP BP 04/19/17 11:51 97.5 F L 76 22 H 04/19/17 10:23 83 81 124/55 L 119/65 04/19/17 09:47 74 29 H 04/19/17 08:00 97.6 F 78 21 H 04/19/17 07:00 97.6 F 04/19/17 06:41 04/19/17 04:21 71 24 H 04/19/17 04:00 98.5 F BP Pulse Ox Pulse Ox Pulse Ox 04/19/17 11:51 119/58 L 98 04/19/17 10:23 100 99 04/19/17 09:47 100 04/19/17 08:00 100 04/19/17 07:00 04/19/17 06:41 95 04/19/17 04:21 98 04/19/17 04:00 Weight Weight 253 lb 8.505 oz Most Recent Monitor Data Heart Rate from ECG 75 NIBP 109/70 NIBP BP-Mean 94 Respiration from ECG 21 SpO2 86 I&O: 04/18/17 04/19/17 04/20/17 06:59 06:59 06:59 Intake Total 2918 2039 480 Output Total 302 0 Balance 2918 1737 480 Result Diagrams: 04/19/17 03:47 04/18/17 16:38 Additional Labs: Accuchecks 04/19/17 04/19/17 04/18/17 12:12 05:46 21:12 POC Glucose 300 H 211 H 291 H 04/18/17 17:13 POC Glucose 336 H Phys Exam - Physical Examination Constitutional: NAD HEENT: PERRLA Neck: no JVD Respiratory: no wheezing Cardiovascular: no significant murmur Gastrointestinal: non-tender Musculoskeletal: pulses present Neurological: moves all 4 limbs Psychiatric: A&O x 3 Dx/Plan (1) NSTEMI (non-ST elevated myocardial infarction) Code(s): I21.4 - NON-ST ELEVATION (NSTEMI) MYOCARDIAL INFARCTION Status: Acute Comment: s/p cath with stent on 10/16 (2) Diabetes mellitus Code(s): E11.9 - TYPE 2 DIABETES MELLITUS WITHOUT COMPLICATIONS Status: Acute (3) HTN (hypertension) Code(s): I10 - ESSENTIAL (PRIMARY) HYPERTENSION Status: Acute (4) Hyperlipidemia Code(s): E78.5 - HYPERLIPIDEMIA, UNSPECIFIED Status: Acute (5) Obesity (BMI 30-39.9) Code(s): E66.9 - OBESITY, UNSPECIFIED Status: Acute (6) NICKI (obstructive sleep apnea) Code(s): G47.33 - OBSTRUCTIVE SLEEP APNEA (ADULT) (PEDIATRIC) Status: Acute Comment: out pt sleep study - Plan * ua shows wbc- do culture and start rocephin * f/u card plan * f/u fobt * cardiac rehab * optimize lantus dose
--- NOTE | 2017-04-19 12:51 | PRG ---
DATE OF SERVICE: 04/19/2017 SUBJECTIVE: Ms. Shaw is much improved today. She received 2 units of packed red blood cells. Her color appears better. She states she has no shortness of breath. She has been ambulating without chest pain, pressure, or shortness of breath. PHYSICAL EXAMINATION: VITAL SIGNS: Blood pressure 124/55, pulse 76, temperature afebrile. LUNGS: Clear to auscultation. CARDIAC: Regular rate and rhythm. ABDOMEN: Soft, nontender, nondistended. EXTREMITIES: No edema. PERTINENT LABORATORY DATA: Hemoglobin 9.6; it is up from 7.8. Creatinine 0.77. IMPRESSION: 1. Non-Q wave myocardial infarction. 2. Status post stent placement to the saphenous vein graft to the right coronary artery and status post stent placement to the circumflex artery. 3. Anemia. RECOMMENDATIONS: Patient with initial low hemoglobin in the low 8 range. She underwent coronary an giography with Impella with anticipation of transfusion. She has done much better after transfusion with no current symptoms. As she continues to ambulate, it would be okay from my standpoint to dis charge home tomorrow if stable. She will follow up with her electronic drafter in [place]. Continue aspi rin and Plavix.
[2017-04-19] MEDS: cefTRIAXone\\ROCEPHIN 1 GM, Admixture Fee 1 EACH in Sodium Chloride 0.9% 100 ML IVPB SCH (14:06)
[2017-04-19] MEDS: Atorvastatin Calcium 20 MG TAB PO SCH (20:48)
[2017-04-19] MEDS: Docusate 100 MG CAP PO SCH (20:48)
[2017-04-19] MEDS: Insulin Detemir 100 UNITS/ML 15 UNITS in Pre-Filled Syringe 1 EACH SC SCH (20:49)
[2017-04-19] MEDS: Zolpidem Tartrate 5 MG TAB PO PRN (20:58)
--- NOTE | 2017-04-19 23:42 | PRG ---
DATE OF SERVICE: 04/19/2017 SUBJECTIVE: The patient this morning, she is awake, alert, and responsive. PHYSICAL EXAMINATION: VITAL SIGNS: Blood pressure is 125/79, sats 100%, pulse 78. I's and O's 2039 in and 302 out. CHEST: Reveals minimal crackles. CARDIAC: Normal S1, S2. ABDOMEN: Soft, no masses. LABORATORY DATA: White count 9,000, hemoglobin and hematocrit 9 and 30, and platelet count 168. So dium is down further to 126, glucose is 211. IMPRESSION: 1. Morbid obesity. 2. Coronary artery disease, multiple stents. 3. Hypothyroidism. PLAN: 1. Continue PT and monitor sodium. 2. We will follow strictly.
[2017-04-20] MEDS: Insulin Regular 300 UNITS/3 ML VIAL SC PRN ×2 (00:50→08:33)
[2017-04-20] MEDS: Levothyroxine Sodium 150 MCG TAB PO SCH (05:59)
[2017-04-20 06:14] LABS: Hematocrit 30.2 % (36.0-47.0)
[2017-04-20] MEDS: Clopidogrel Bisulfate 75 MG TAB PO SCH (08:23)
[2017-04-20] MEDS: Docusate 100 MG CAP PO SCH (08:23)
[2017-04-20] MEDS: Insulin Detemir 100 UNITS/ML 15 UNITS in Pre-Filled Syringe 1 EACH SC SCH (08:32)
[2017-04-20 11:44] VITALS: BP 109/58; TEMP 97.9
[2017-04-20 11:48] LABS: Anion Gap 13 mmol/L (10-20); BUN (Urea Nitrogen) 13 mg/dL (9.8-20.1); Calc. Creatinine Clearance 105 mL/min (70-130); Calcium 8.3 mg/dL (7.8-10.44); Carbon Dioxide 19 mmol/L (23-31); Chloride 110 mmol/L (98-107); Estimated GFR-MDRD 69
[2017-04-20] MEDS: cefTRIAXone\\ROCEPHIN 1 GM, Admixture Fee 1 EACH in Sodium Chloride 0.9% 100 ML IVPB SCH (13:31)
--- NOTE | 2017-04-20 16:52 | PRG ---
DATE OF SERVICE: 04/20/2017 PHYSICAL EXAMINATION: VITAL SIGNS: Sats are 97% on 2 liters, respirations 18, temperature 97, and blood pressure 109/58. CHEST: Decreased breath sounds without any wheezing. CARDIAC: Normal S1 and S2. No gallops. ABDOMEN: Soft. No masses. IMPRESSION: 1. Status post catheterization, multiple stents. 2. Severe deconditioning. 3. Possible sleep apnea. PLAN: From a pulmonary standpoint, she can be discharged home. Today from a pulmonary standpoint o f view, probably follow up with Dr. Salomon, may be outpatient sleep study.
--- NOTE | 2017-04-20 23:00 | DIS ---
DATE OF ADMISSION: 04/15/2017 DATE OF DISCHARGE: 04/20/2017 PRIMARY DISCHARGE DIAGNOSES: 1. Acute coronary syndrome, non-Q-wave myocardial infarction. 2. Status post stent placement to the saphenous vein graft to the right coronary artery and stent p lacement to the circumflex artery. 3. Anemia. 4. Anxiety. HOSPITAL COURSE: The patient was admitted on 04/15/2017 with complaints of chest pain. She was see n and assessed by Cardiology. Based on that review, the patient was diagnosed with a non-Q-wave PA. Cardiac cath was performed. Cardiology also placed 2 stents in the aforementioned areas. The pat ient was also transfused a unit of packed red blood cells secondary to anemia and to treat demand is chemia. The patient improved after the appropriate therapeutic maneuvers. She was deemed stable fo r discharge with followup with her parts inspector in the [place] area. CONSULTANTS: Cardiology as well as Pulmonary Critical Care. PROCEDURES: Echocardiogram, cardiac catheterization with stent placement. PERTINENT LABORATORY DATA: The patient had episodic hyponatremia during this hospital admission. He r sodium had dropped as low as 126. Upon discharge, her sodium had returned to normal at 138. DISCHARGE DISPOSITION: To home. DISCHARGE ACTIVITY: As tolerated. DISCHARGE DIET: Heart healthy. DISCHARGE MEDICATIONS: Please see the medication rec list, although we have added aspirin and Plavi x to the patient's outpatient regimen. FOLLOWUP: The patient is to follow up with her parts inspector and PCP in the [place] area within 1 we ek. PHYSICAL EXAMINATION: GENERAL: She is in no acute distress. HEAD: Normocephalic, atraumatic. EYE: PERRL. CARDIAC: Regular rate and rhythm. No murmur, regurge or gallops. LUNGS: Clear to auscultation. ABDOMEN: Obese, nontender. EXTREMITIES: No clubbing, cyanosis or edema.
--- OUTSIDE RECORDS SUMMARY | 2017-04-21 21:16 | XMS | Clinical Summary ---
:1945 Author Organization [facility] Address [address] [place] [address] Phone Care Team Providers Name Role Phone , Primary Care Provider Unavailable Allergies Active Allergy Reactions Severity Noted Date Comments Adhesive Other (See Comments) 03/23/2013 TEARS SKIN, BLOODY SKIN Hydrocodone-Acetaminop Nausea Only 05/03/2016 hen Current Medications Prescription Sig. Disp. Refills Start Date End Date Status aspirin 81 mg Tab Take by mouth. Active mupirocin (BACTROBAN) Apply topically 2 Active 2 % ointment (two) times daily. fluocinonide (LIDEX) Apply topically 2 Active 0.05 % cream (two) times daily. metroNIDAZOLE Apply topically as Active (METROGEL) 1 % gel needed. clopidogrel (PLAVIX) Take 75 mg by mouth Active 75 mg tablet daily. pantoprazole Take 40 mg by mouth Active (PROTONIX) 40 MG daily. tablet levothyroxine Take 150 mcg by Active (SYNTHROID, mouth daily. LEVOTHROID) 150 MCG tablet omega-3 fatty Take 1,000 mg by Active acids-vitamin E 1,000 mouth 2 (two) times mg Cap daily. calcium-vitamin Take by mouth. Active D3-vitamin K (VIACTIV) 500-100-40 mg-unit-mcg Chew atorvastatin Take 1 tablet (20 mg 90 tablet 0 05/10/2016 Active (LIPITOR) 20 MG total) by mouth 7 tablet nightly. insulin glargine Inject 70 Units Active (LANTUS) 100 unit/mL subcutaneously injection nightly Use as directed. ascorbic acid, Take 100 mg by mouth Active vitamin C, (VITAMIN daily. C) 100 MG tablet cyanocobalamin 2000 Take 2,000 mcg by Active MCG tablet mouth daily. estradiol (ESTRACE) Place 2 g vaginally Active 0.01 % (0.1 mg/gram) daily. vaginal cream INSULIN LISPRO Inject Active (HUMALOG SUBQ) subcutaneously Taken per sliding scale tid. lactobacillus Take 1 capsule by Active rhamnosus, GG, mouth daily. (CULTURELLE) 10 billion cell capsule clobetasol (TEMOVATE) Apply topically Active 0.05 % cream daily Apply topically to affected area twice daily. . iron, carbonyl 45 mg Take by mouth daily. Active Tab tablet ketoconazole Apply topically 3 Active (NIZORAL) 2 % shampoo (three) times a week. metoprolol Take 25 mg by mouth Active (TOPROL-XL) 25 MG 24 daily. hr tablet multivitamin per Take 1 tablet by Active tablet mouth daily. Lactobacillus Take 1 tablet by Active acidoph-L.bulgar mouth 2 (two) times (FLORANEX) 1 million daily. cell Tab per tablet cholecalciferol Take 1,000 Units by Active (VITAMIN D3) 1,000 mouth daily. unit tablet docusate sodium Take 100 mg by mouth Active (COLACE) 100 MG 2 (two) times daily. capsule econazole nitrate Apply topically Active (SPECTAZOLE) 1 % daily apply to rash cream 1-2 times daily . fluticasone (FLONASE) 2 sprays by Nasal Active 50 mcg/actuation route daily. nasal spray loperamide (IMODIUM) Take 2 mg by mouth 4 Active 2 mg capsule (four) times daily as needed for Diarrhea. triamcinolone Use as directed in Active (KENALOG) 0.1 % the mouth or throat dental paste 2 (two) times daily. vitamin E 200 UNIT Take 200 Units by Active capsule mouth daily. metFORMIN (GLUMETZA) Take 1 tablet (500 30 tablet 6 10/05/2016 Active 500 MG (MOD) 24 hr mg total) by mouth 4 tablet (four) times daily with meals and nightly. Active Problems Problem Noted Date Status post left heart catheterization 10/04/2016 Coronary artery disease 05/03/2016 S/P CABG x 3 05/03/2016 Acute postoperative pain 05/03/2016 Acute pulmonary insufficiency following thoracic surgery ([facility]) 05/03/2016 Hyperglycemia due to type 2 diabetes mellitus ([facility]) 05/03/2016 Shock circulatory ([facility]) 05/03/2016 Mild aortic valve stenosis 05/02/2016 Coronary artery disease of [place] artery of [place] heart with stable 2015 angina pectoris ([facility]) Benign essential HTN 05/02/2016 Type 2 diabetes mellitus with peripheral artery disease ([facility]) 05/02/2016 Diabetic retinopathy without macular edema associated with type 2 diabetes 08/2015 mellitus ([facility]) Exertional angina ([facility]) 05/02/2016 Hypothyroidism 05/02/2016 Cirrhosis ([facility]) 05/02/2016 Esophageal reflux 05/02/2016 Chest pain 04/26/2016 Family History Medical History Relation Name Comments Aortic dissection Father Heart disease Mother Relation Name Status Comments Father Mother Social History Tobacco Use Types Packs/Day Years Used Date Former Smoker 0.25 Quit: 11/07/1968 Comments:stopped at 18 years of age. Alcohol Use Drinks/Week oz/Week Comments No Sex Assigned at Date Recorded Not on file Last Filed Vital Signs Vital Sign Reading Time Taken Blood Pressure 83/44 10/05/2016 7:10 AM CDT Pulse 55 10/05/2016 7:10 AM CDT Temperature 36.4 C (97.6 F) 10/05/2016 7:10 AM CDT Respiratory Rate 18 10/05/2016 7:10 AM CDT Oxygen Saturation 95% 10/05/2016 7:10 AM CDT Inhaled Oxygen Concentration - - Weight 108 kg (238 lb) 10/05/2016 7:10 AM CDT Height 175.3 cm (5' 9") 10/04/2016 7:00 AM CDT Body Mass Index 35.15 10/05/2016 7:10 AM CDT Plan of Treatment Health Maintenance Due Date Last Done Comments INFLUENZA VACCINE 03/31/2017 Implants Implanted Type Area Shop Lead Device Expiration Model / Identifier Date Serial / Lot Sternal Zipfix Ndl Strl .[id number] - [id number] Cardiovascular N/A: Chest SYNTHES:SYNTHE 12/28/2020 [id number] / Implanted:Qty: 2 on 05/03/2016 by Ashok Flowers MD [employer] [facility] / [id number] Promus Premier Stents-Coronary N/A: [place] 10/14/2017 [id number] / Implanted:Qty: 1 on 10/04/2016 by Fani Bingham MD [employer] / [id number] Results Not on filefrom Last 3 Months
--- OUTSIDE RECORDS SUMMARY | 2017-04-21 21:16 | XMS | Clinical Summary ---
:1945 Author Organization [facility] Address [address] [place] [address] Phone Care Team Providers Name Role Phone , Primary Care Provider Unavailable Allergies Not on File Current Medications Not on file Active Problems Not on file Social History Tobacco Use Types Packs/Day Years Used Date Never Assessed Sex Assigned at Date Recorded Not on file Last Filed Vital Signs Not on file Plan of Treatment Not on file Results Not on filefrom Last 3 Months
--- NOTE | 2017-04-22 13:17 | EKG ---
Test Reason : PT SITTING IN CHAIR Blood Pressure : / mmHG Vent. Rate : 076 BPM Atrial Rate : 076 BPM P-R Int : 192 ms QRS Dur : 172 ms QT Int : 468 ms P-R-T Axes : 019 -73 131 degrees QTc Int : 526 ms Normal sinus rhythm Right bundle branch block Left anterior fascicular block Bifascicular block T wave abnormality, consider lateral ischemia Abnormal ECG Confirmed by HALEY THORNTON ([id number]) on 04/22/2017 1:16:55 PM Referred By: A[place]IN Confirmed By:HALEY THORNTON
--- NOTE | 2017-04-23 13:36 | OP ---
DATE OF PROCEDURE: 04/17/2017 PREPROCEDURE DIAGNOSIS: Non-Q wave myocardial infarction with continued symptoms. POST-PROCEDURE DIAGNOSIS: Severe multi-vessel disease. PROCEDURE: 1. Insertion of ventricular assist device percutaneously including radiologic supervision interpret ation. 2. Successful stent placement with drug coated stent to the ostial and mid circumflex artery. 3. Open femoral artery exposure for delivering endovascular prosthesis with Preclose performed. DETAILS: The patient recently presented with a non-Q wave myocardial infarction. She was found to have severe stenosis of the ostium of the circumflex artery with a completely occluded graft to the circumflex in addition to severe stenosis of the graft to the right coronary artery. She underwent successful stent placement to the graft to the right coronary artery. I was unsure whether her non- Q wave myocardial infarction originated from the graft versus the circumflex artery. She continued to have symptoms despite recent revascularization of the right coronary artery. Given the location of the lesion within the circumflex artery, it was decided to use a ventricular a ssist device. Access was obtained in the right and left femoral artery under ultrasound guidance. Micropuncture s deward was employed. A 6 [place] sheath was placed in the right femoral artery without difficulty. A 6 [place] sheath was also placed in the left femoral artery. Visualization was confirmed under radi ologic supervision. Preclose was performed with 2 Preclosed devices. The Impella was then placed s uccessfully. Cardiac output was noted at 2.3. A Sonya 3.5 catheter was placed into the left main artery without difficulty. A Luge wire was place d distally without difficulty. A Mailman wire was also placed due to angulation within the circumfl ex artery. A predilitation was performed with a 2.0 balloon catheter. This was then removed and re placed with a 2.75 x 12 mm Synergy stent. This was placed distally and inflated to 10 atmospheres. This was then removed and replaced with a 2.5 x 12 mm Synergy balloon catheter. This was placed in the ostial portion of the circumflex artery. There appeared to be calcification present with no si gnificant stenosis. For confirmation IVUS was performed. IVUS did suggest significant calcification present within the circumflex artery, estimated at greater than 270 degrees. Please note the patien t did have a Rotablator performed within the last 4-5 months within the area and a stent placed. I do not feel a repeat Rotablator was indicated due to recent stent placement. A 3.0 x 12 mm Emerge b alloon catheter was then placed over the Mailman wire and inflated to 8 atmospheres. There was exce llent at the end of the study. The Impella was removed successfully. Preclose was also perfor med successfully within the right and left femoral arteries.
== END 2017-04-20 14:03 | disposition home or self-care (01) | DRG 215 ==
LOC: ERS 20:35 → OBSVTOIN 22:15 → 2SW 22:15 → CCU 04-14 13:09 → 2NO 04-19 11:14
PROVIDERS: ADMIT Internal Medicine; ATTEND Internal Medicine
PROC: 02703DZ Dilation of Coronary Artery, One Artery with Intraluminal Device, Percutaneous Approach (ICD-10-PCS; principal; 2017-04-15)
PROC: B2111ZZ Fluoroscopy of Multiple Coronary Arteries using Low Osmolar Contrast (ICD-10-PCS; 2017-04-15)
PROC: 02HA3RJ Insertion of Short-term External Heart Assist System into Heart, Intraoperative, Percutaneous Approach (ICD-10-PCS; 2017-04-17)
PROC: 5A0221D Assistance with Cardiac Output using Impeller Pump, Continuous (ICD-10-PCS; 2017-04-17)
PROC: 027135Z Dilation of Coronary Artery, Two Arteries with Two Drug-eluting Intraluminal Devices, Percutaneous Approach (ICD-10-PCS; 2017-04-17)
PROC: B241ZZ3 Ultrasonography of Multiple Coronary Arteries, Intravascular (ICD-10-PCS; 2017-04-17)
PROC: B2111ZZ Fluoroscopy of Multiple Coronary Arteries using Low Osmolar Contrast (ICD-10-PCS; 2017-04-17)
PROC: 30233N1 Transfusion of Nonautologous Red Blood Cells into Peripheral Vein, Percutaneous Approach (ICD-10-PCS; 2017-04-18)
DX: I21.4 Non-ST elevation (NSTEMI) myocardial infarction (principal); E11.9 Type 2 diabetes mellitus without complications; I45.2 Bifascicular block; E87.1 Hypo-osmolality and hyponatremia; I10 Essential (primary) hypertension; D50.9 Iron deficiency anemia, unspecified; E66.01 Morbid (severe) obesity due to excess calories; Z95.1 Presence of aortocoronary bypass graft; E03.9 Hypothyroidism, unspecified; E78.5 Hyperlipidemia, unspecified; I25.10 Atherosclerotic heart disease of native coronary artery without angina pectoris; Z79.4 Long term (current) use of insulin; Z79.82 Long term (current) use of aspirin; Z68.37 Body mass index [BMI] 37.0-37.9, adult; G47.33 Obstructive sleep apnea (adult) (pediatric); F41.9 Anxiety disorder, unspecified; I24.8 Other forms of acute ischemic heart disease; Z79.84 Long term (current) use of oral hypoglycemic drugs; Z82.49 Family history of ischemic heart disease and other diseases of the circulatory system
CPT/HCPCS: 33975; 33990; 36415; 36416; 36430; 71010; 71275; 76942; 80048; 80053; 80069; 81003; 81015; 82274; 82553; 83036; 83880; 84443; 84484; 85014; 85018; 85025; 85347; 85379; 86850; 86900; 86901; 87086; 92928; 92978; 93005; 93010; 93306; 93454; 93798; 94640; 99152; 99153; C1725; C1753; C1760; C1769; C1874; C1876; C1887; C9600; J0696; J1644; J1650; J1815; J1940; J2250; J3010; J3246; J7050; J7620; P9016

== ENCOUNTER 2019-05-03 21:11 | Inpatient (IN) | payer MEDICARE ==
[2019-05-03] MEDS ORDERED: Aspirin 325 MG TAB ONE (21:27)
[2019-05-03] MEDS ORDERED: Diltiazem 125 MG/25 ML ONE (21:27)
--- NOTE | 2019-05-03 21:39 | RAD ---
XR Chest 1 View Portable HISTORY: Chest pain COMPARISON: 04/17/2017 study FINDINGS: Heart size is enlarged with postop sternotomy changes. The lungs are clear of infiltrates. No signs of failure. IMPRESSION: Cardiomegaly.
[2019-05-03] MEDS ORDERED: Diltiazem HCl 125 MG, Admixture Fee 1 EACH in Sodium Chloride 0.9% 100 ML IVPB SCH (21:45)
[2019-05-03 21:52] LABS: #Eosinphils 0.3 thou/uL (0.0-0.7); #Lymphocytes 1.1 thou/uL (1.20-3.40); #Monocytes 0.5 thou/uL (0.11-0.59); #Neutrophils 4.8 thou/uL (1.40-6.50); %Basophils 0.2 % (0.0-1.0); %Eosinophils 3.8 % (0.0-10.0); %Lymphocytes 16.3 % (21.0-51.0); %Monocytes 7.4 % (0.0-10.0); %Neutrophils 72.2 % (42.0-75.0); Hemoglobin 11.5 g/dL (12.0-16.0); Mean Corpuscular HGB CONC 33.5 g/dL (32.0-36.0); Mean Corpuscular Hemoglobin 28.6 pg (27.0-31.0); Mean Corpuscular Volume 85.4 fL (78.0-98.0); Mean Platelet Volume 7.3 fL (7.4-10.4); Platelet Count 136 thou/uL (130-400); RBC Distribution Width 15.2 % (11.5-14.5); Red Blood Cell (RBC) Count 4.01 mill/uL (4.20-5.40); White Blood Cell (WBC) Count 6.6 thou/uL (4.8-10.8)
[2019-05-03] MEDS ORDERED: Aspirin Chewable 81 MG TAB ONE (21:54)
[2019-05-03 22:07] LABS: ALT (SGPT) 14 U/L (8-55); AST (SGOT) 19 U/L (5-34); Albumin 3.8 g/dL (3.4-4.8); Alkaline Phosphatase 95 U/L (40-110); Anion Gap 18 mmol/L (10-20); BUN (Urea Nitrogen) 18 mg/dL (9.8-20.1); Bilirubin, Total 0.8 mg/dL (0.2-1.2); CK (CPK) 55 U/L (29-168); Calc. Creatinine Clearance 0 mL/min (70-130); Calcium 8.9 mg/dL (7.8-10.44); Carbon Dioxide 23 mmol/L (23-31); Chloride 97 mmol/L (98-107); Estimated GFR-MDRD 51; Globulin 3.3 g/dL (2.4-3.5); Glucose 346 mg/dL (83-110); Potassium 3.8 mmol/L (3.5-5.1); Protein, Total 7.1 g/dL (6.0-8.3); Sodium 134 mmol/L (136-145)
--- NOTE | 2019-05-03 22:41 | PDOC.FPRHP ---
- History of Present Illness Chief Complaint: chest pain History of Present Illness: 73 yo F presents with chest pain and weakness. She has a hx of a CABG 2016 and 10 stents after that. She has been taking her nitro daily and up to 3 times daily for the past 3 days. Was not feeling well this morning but ate breakfast. Chest pain today, however, did not resolve w/ nitro. Today's chest pain was worse in intensity than she has ever had before, substernal, tight, steady. It hurt to breath, radiated to shoulders b/l and jaws b/l and down both arms. She checked pulse at home and was 105-111. C/o nausea, no vomiting. Coughed a lot and feeling SOB. She denies feeling sweaty, feverish, or chills. Pt does not require oxygen at home. Uses a walker to walk and to avoid falls. Has an active lifestyle given her comorbidities. ED Course: Diltiazem bolus and drip and gave 162mg aspirin. Became rate controlled. Given O2 NC. - Allergies/Adverse Reactions Allergies Allergy/AdvReac Type Severity Reaction Status Date / Time adhesive tape Allergy Verified 04/13/17 23:20 hydrocodone Allergy Nausea Verified 04/13/17 23:46 - Home Medications Medication Instructions Recorded Confirmed Type Atorvastatin Calcium 20 mg PO 2200 04/14/17 04/14/17 History Clopidogrel Bisulfate [Plavix] 75 mg PO DAILY 04/14/17 04/14/17 History HumaLOG [HumaLOG Vial] 5 unit SC AC PRN 04/14/17 04/14/17 History Insulin Glargine,Hum.Rec.Anlog 70 unit SQ QAM 04/14/17 04/14/17 History [Lantus Solostar] Isosorbide Mononitrate [Imdur ER] 30 mg PO DAILY 04/14/17 04/14/17 History Levothyroxine [Synthroid] 150 mcg PO ASDIR 04/14/17 04/14/17 History Levothyroxine [Synthroid] 225 mcg PO Q7DAYS 04/14/17 04/14/17 History Metoprolol Succinate [Toprol XL] 25 mg PO DAILY 04/14/17 04/14/17 History Nitroglycerin [Nitrolingual [place]] 1 spray SL Q5MIN PRN 04/14/17 04/14/17 History Pantoprazole Sodium 40 mg PO DAILY 04/14/17 04/14/17 History metFORMIN HCl [Metformin ER 1,000 mg PO BID 04/14/17 04/14/17 History Gastric] Aspirin Chewable [Aspirin Chewable 81 mg PO DAILY #90 tab 04/20/17 Rx Tablet] - History PMHx: Aortic Stenosis Combined CHF Afib, chronic on bb and anticoagulation CAD s/p [place] s/p CABG 6-8 years ago, and 10 additional stents placed two years prior, drug eluting Type 2 diabetes on insulin and metformin Hx of endometrial and ovarian cancer 2005 thyroidectomy, now hypothyroidism GERD HLD, RBBB with left ant fas block elevated NIA OA thrombocytopenia cirrhosis due to fatty liver lichen sclerosis Iron deficient anemia Asthma Depression Hx of blood clot in left leg/knee Hx of cellulitis COPD PSHx: Toe surgery x 2 CABG 3V and two additional stents placed Two cesareans Hyst with b/l oophorectomy breast biopsies thyroidectomy with radiation FHx: Father-aortic rupture, dcsd Mother-[place], , CVA Social: denies smoking, smoked when 19 years old for one year, drank 1/4 cup of wine one day, denies recreational drug use - Review of Systems General: denies: fever/chills, weight/appetite/sleep changes, night sweats Eyes: denies: vision changes ENT: denies: nasal congestion, rhinorrhea Respiratory: reports: cough, shortness of breath Cardiovascular: reports: chest pain. denies: palpitation, edema Gastrointestinal: reports: nausea. denies: vomiting, diarrhea, constipation, abdominal pain Genitourinary: denies: dysuria Skin: denies: rashes Musculoskeletal: denies: pain, tenderness Neurological: denies: numbness, syncope, seizure, weakness Psychological: reports: depression (history of,). denies: anxiety - Vital signs BP: 106/58, Pulse: 70, O2 sat: 97 on Room Air, Time: 05/03/2019 23:44. - Physical Exam Constitutional: NAD, awake, alert and oriented, well developed HEENT: normocephalic and atraumatic, conjunctiva clear, no scleral icterus, grossly normal vision, grossly normal hearing, good dention Neck: trachea midline Chest: no-tender to palpation Heart: RRR, normal S1/S2 (grade 3/6 systolic murmur), pulses present (DP 2+ equal b/l), other (edema 1+) Lungs: CTAB, no respiratory distress, good air movement (faint wheezing from upper lobes heard anteriorly) Abdomen: soft, no masses/distention Musculoskeletal: normal structure, normal tone Neurological: no focal deficit Skin: no rash/lesions (stasis dermatitis of distal lower extremities b/l) Heme/Lymphatic: no unusual bruising or bleeding, no purpura, no petechia Psychiatric: normal mood and affect, good judgment and insight, intact recent and remote memory FMR H&P: Results - Labs Result Diagrams: 05/03/19 21:34 05/03/19 21:34 Lab results: WBC 6.6 thou/uL (4.8-10.8) 05/03/19 21:34 Hgb 11.5 g/dL (12.0-16.0) L 05/03/19 21:34 Hct 34.2 % (36.0-47.0) L 05/03/19 21:34 MCV 85.4 fL (78.0-98.0) 05/03/19 21:34 Plt Count 136 thou/uL (130-400) 05/03/19 21:34 Neutrophils % 72.2 % (42.0-75.0) 05/03/19 21:34 Sodium 134 mmol/L (136-145) L 05/03/19 21:34 Potassium 3.8 mmol/L (3.5-5.1) 05/03/19 21:34 Chloride 97 mmol/L (98-107) L 05/03/19 21:34 Carbon Dioxide 23 mmol/L (23-31) 05/03/19 21:34 BUN 18 mg/dL (9.8-20.1) 05/03/19 21:34 Creatinine 1.05 mg/dL (0.6-1.1) 05/03/19 21:34 Glucose 346 mg/dL (83-110) H 05/03/19 21:34 Calcium 8.9 mg/dL (7.8-10.44) 05/03/19 21:34 Total Bilirubin 0.8 mg/dL (0.2-1.2) 05/03/19 21:34 AST 19 U/L (5-34) 05/03/19 21:34 ALT 14 U/L (8-55) 05/03/19 21:34 Alkaline Phosphatase 95 U/L (40-110) 05/03/19 21:34 Creatine Kinase 55 U/L (29-168) 05/03/19 21:34 B-Natriuretic Peptide 578.1 pg/mL (0-100) H 05/03/19 21:34 Serum Total Protein 7.1 g/dL (6.0-8.3) 05/03/19 21:34 Albumin 3.8 g/dL (3.4-4.8) 05/03/19 21:34 - EKG Interpretation EKG: A-fib w/ RVR, LBBB, QRS widened - Radiology Interpretation Chest x-ray Status: image reviewed by me, report reviewed by me Additional comment: cardiomegaly FMR H&P: A/P - Problem List (1) CAD (coronary artery disease) Current Visit: Yes Status: Chronic Code(s): I25.10 - ATHSCL HEART DISEASE OF [place] CORONARY ARTERY W/O ANG PCTRS (2) Hypothyroidism Current Visit: Yes Status: Chronic Code(s): E03.9 - HYPOTHYROIDISM, UNSPECIFIED (3) CHF (congestive heart failure) Current Visit: Yes Status: Chronic Code(s): I50.9 - HEART FAILURE, UNSPECIFIED (4) Diabetes mellitus Current Visit: No Status: Chronic Code(s): E11.9 - TYPE 2 DIABETES MELLITUS WITHOUT COMPLICATIONS (5) HTN (hypertension) Current Visit: No Status: Chronic Code(s): I10 - ESSENTIAL (PRIMARY) HYPERTENSION (6) Hyperlipidemia Current Visit: No Status: Chronic Code(s): E78.5 - HYPERLIPIDEMIA, UNSPECIFIED (7) Obesity (BMI 30-39.9) Current Visit: No Status: Chronic Code(s): E66.9 - OBESITY, UNSPECIFIED (8) Atrial fibrillation with rapid ventricular response Current Visit: Yes Status: Acute Code(s): I48.91 - UNSPECIFIED ATRIAL FIBRILLATION (9) Chest pain Current Visit: Yes Status: Acute Code(s): R07.9 - CHEST PAIN, UNSPECIFIED - Plan 73 yo F w/ complex and extensive past medical history particularly w/ relation to her heart, admitted for: A-Fib w/ RVR, now rate controlled Typical chest pain - pt has known chronic a-fib on anti-coagulation. Has known history of RBBB with left ant fas block. - EKG today reads LBBB. QRS is widened. A-fib w/ RVR prior to diltiazem. - on diltiazem drip s/p diltiazem bolus in ER. Continue diltiazem drip at 2.5 mg /hr. Nurses to call if SBP < 80 or HR > 110. - nitro prn - continue home medications for anti-coagulation - Cardiology consult. Will call in AM for assessment. - Risk stratification w/ Magnesium, phosphorus, FLP, TSH. - Last A1C from pt MyChart at 8.1 on 04/02/2019. Will not reorder on this admission. Combined CHF CAD s/p [place] s/p CABG 6-8 years ago - 10 additional stents placed two years prior, drug eluting - Last stents (2) placed and cath were at outside hospital in July 2018. - strict I/Os - daily weights - heart healthy diet Type 2 diabetes on insulin and metformin - continue home medications - glucose checks qACHS - Carb consistent diet - Hypoglycemia protocol. Hypothyroidism s/p thyroidectomy for malignant neoplasm of thyroid - continue home dose of synthroid GERD - continue hoe pantoprazole HLD - will increase atorvastatin to 40 mg (home dose is 20mg) Other chronic conditions: Hx of endometrial and ovarian cancer 2004 Hx of Thrombocytopenia Cirrhosis due to fatty liver Iron-deficiency anemia Asthma Depression Hx of blood clot in left leg/knee Hx of cellulitis COPD OA Code: FULL VTE PPx: home meds, ticagrelor, aspirin GI PPx: takes home pantoprazole 40mg Fluids: LR Nova Pruitt MD PGY1 Disposition/LOS: Admit to telemetry as inpatient. LOS > 48H. Call automotive parts counter person in AM. FMR H&P: Upper Level - Pertinent history 73 yo f presents with chest pain not resolved with nitro. PMHx of CAD s/p CABG and 10 stents placed. Pt is from [place] and sees automotive parts counter person there. Last cath was 07/2018 and had 2 additional stents placed. She has a hx of chronic afib , chf systolic and diastolic. - Pertinent findings VSS HR 80s PE: systolic murmur wheezing anteriorly 1+ pitting edema a&0x3 2+ pulses lower extremities Labs: trop: indeterminate EKG: RBBB afib with rvr - Plan Date/Time: 05/03/192238 A/P: Typical chest pain- -concerning for unstable angina initially, but now resolved -at rest, not relieved by nitro, worse than prior cardiac pain but now resolved -Hx of CAD s/p CABG, and 10 stents placed -From [place] and sees automotive parts counter person there -Last cath in 07/2018 -will trend troponins and continue pt's home anticoagulation -cards consult in the am Afib with RVR- -rate controlled now in the 80s -continue dilt drip and titrate as needed -consult cardiology in the am -restart anticoagulation CHF -systolic and diastolic -restart home meds -not in an acute exacerbation CAD s/p CABG and multiple stents placed- -restart home medications Known hx of a RBBB Known hx of Afib -restart home meds Type 2 diabetes -most recent hba1c 8.1 -will restart home meds add sliding scale as needed HLD -would recommend high intensity statin as pt only on atorvastatin 20mg daily S/p thyroidectomy -restart home levothyroxine COPD -wheezing on exam -restart home medications Code: FULL DVT ppx: home anticoagulation Diet: LINDA Gutierrez MD, PGY-3
[2019-05-03] MEDS ORDERED: Enoxaparin Sodium 100 MG/ML SYRINGE ONE (23:07)
[2019-05-03] MEDS ORDERED: Ondansetron PF 4 MG/2 ML Vial IVP PRN (23:48)
[2019-05-03] MEDS ORDERED: Ondansetron ODT 4 MG TAB PO PRN (23:48)
[2019-05-03] MEDS ORDERED: Nitroglycerin 0.4 MG TAB (25 Tab Bottle) PO PRN (23:48)
[2019-05-03] MEDS ORDERED: Dextrose 5% in Water 1,000 ML IV PRN (23:58)
[2019-05-03] MEDS ORDERED: Dextrose 50% Abboject 50 ML SYRINGE SLOW IVP PRN (23:58)
[2019-05-04] MEDS ORDERED: Diltiazem 125 MG in Sodium Chloride 0.9% 100 ML IVPB SCH (00:30)
[2019-05-04 01:05] LABS: Troponin I 0.504 ng/mL (< 0.028)
[2019-05-04] MEDS ORDERED: Levothyroxine 150 MCG TAB PO SCH (01:30)
--- NOTE | 2019-05-04 01:53 | PDOC.EVN ---
Event Note - Event Note Event Note: Second troponin elevated to .5. An EKG was repeated and this second EKG is without changes from a prior EKG in 2017. Pt received theraputic lovenox in the ED and aspirin 162mg. Pt seen at bedside and is without chest pain. Chest pain actually resolved in the ER. We will check another troponin in three hours and repeat an EKG at that time, and also if chest pain returns will repeat an EKG. Pt's home med of brilinta is scheduled to be given this am. Will continue to monitor closely. Will call cardiology in the am for additional recommendations.
--- NOTE | 2019-05-04 04:55 | PDOC.FM ---
- Subjective Subjective: Mrs. Shaw was resting comfortably with her at her bedside during the evaluation. She had no acute overnight events, with no additional episodes of chest pain, nausea, vomiting, SOB or feelings of being cool or clammy. - Objective Vital Signs & Weight: Vital Signs (12 hours) Temp Pulse Resp BP Pulse Ox 05/04/19 04:00 98.2 F 95 05/04/19 00:55 98.6 F 80 20 128/60 95 Weight Weight 102.104 kg Result Diagrams: 05/04/19 04:30 05/04/19 04:30 Radiology Reviewed by me: Yes Phys Exam - Physical Examination Constitutional: NAD HEENT: PERRLA, moist MMs, sclera anicteric, oral pharynx no lesions Neck: no nodes, no JVD, supple, full ROM Respiratory: no wheezing, no rales, no rhonchi, clear to auscultation bilateral Cardiovascular: RRR, no significant murmur, no rub Gastrointestinal: soft, non-tender, no distention, positive bowel sounds Musculoskeletal: no edema, pulses present Neurological: non-focal, moves all 4 limbs Lymphatic: no nodes Psychiatric: normal affect Skin: no rash Dx/Plan - Plan Plan: 1. Typical Chest Pain -Patient has complex CV history, including previous RI, multiple stent placements and chronic A-Fib requiring anti-coagulation -Patient has known history of RBBB with left Anterior Fasicular Block -Most recent EKG reveals widened QRS, A-Fib w/ RVR prior to Diltiazem gtt -Trops: 0.039, 0.504, 2.33 -BNP: 578, similar to last hospitalization on 04/13/17 -Will continue Diltiazem gtt at 2.5 mg/hr -Will monitor vitals closely - Nursing staff will notify if SBP < 80 or HR > 110 -Nitro PRN for chest pain -Continue home anti-coagulation medication regimen -Mg, Phos, FLP, TSH - pending -Cardiology Consult: Pending, awaiting recommendations 2. A-Fib w/ RVR, now rate controlled -Continue home anti-coagulation medication regimen -Will continue Diltiazem gtt at 2.5 mg/hr -Cardiology Consult: Pending, awaiting recommendations 3. Hx of RI, s/p CABG -10 additional drug-eluting stents placed 2 years prior -Last stents (2) placed in July 2018 following heart catheterization at outside hospital -Strict I/Os -Daily weights -Currently NPO - plan for transition to Heart Healthy Diet 4. DM2 -Continue home DM2 medication regimen -Glucose checks QACHS -Diet: Carbohydrate Conscious -Hypoglycemia Protocol -Last HgA1C was 8.1 on 04/02/2019 - will not reorder during this hospital stay 5. Hypothyroidism s/p Thyoridectomy -Thyroid previously removed 2/2 malignancy -Continue home Synthroid regimen 6. HLD -Previously on Atorvastatin 20 mg daily -Increase Atorvastatin to 40 mg daily -Fasting Lipid Panel: Pending 7. GERD -Continue home Pantoprazole regimen -Encourage proper positioning during meals Code: Full Diet: Heart Healthy / Carbohydrate Conscious Activity: Ad Sarah DVT PPx: Ticagrelor / ASA 81 Dispo: Patient currently stable on [place] Floor. Await additional lab values and Cardiologyconsult - will coordinate accordingly. Ensure adequate pain control and continued maintenance of other comorbid conditions. Expected LOS < 48H.
[2019-05-04 05:00] LABS: #Eosinphils 0.2 thou/uL (0.0-0.7); #Lymphocytes 0.9 thou/uL (1.20-3.40); #Monocytes 0.3 thou/uL (0.11-0.59); #Neutrophils 3.6 thou/uL (1.40-6.50); %Basophils 0.6 % (0.0-1.0); %Eosinophils 3.5 % (0.0-10.0); %Lymphocytes 17.6 % (21.0-51.0); %Monocytes 6.9 % (0.0-10.0); %Neutrophils 71.4 % (42.0-75.0); Hemoglobin 9.4 g/dL (12.0-16.0); Mean Corpuscular HGB CONC 33.1 g/dL (32.0-36.0); Mean Corpuscular Hemoglobin 28.3 pg (27.0-31.0); Mean Corpuscular Volume 85.7 fL (78.0-98.0); Mean Platelet Volume 7.3 fL (7.4-10.4); Platelet Count 92 thou/uL (130-400); RBC Distribution Width 15.1 % (11.5-14.5); Red Blood Cell (RBC) Count 3.33 mill/uL (4.20-5.40)
[2019-05-04 05:07] LABS: Anion Gap 12 mmol/L (10-20); BUN (Urea Nitrogen) 16 mg/dL (9.8-20.1); Calc. Creatinine Clearance 100 mL/min (70-130); Calcium 8.4 mg/dL (7.8-10.44); Carbon Dioxide 26 mmol/L (23-31); Chloride 101 mmol/L (98-107); Estimated GFR-MDRD 69; Glucose 248 mg/dL (83-110); Potassium 3.5 mmol/L (3.5-5.1); Sodium 135 mmol/L (136-145)
[2019-05-04 05:43] LABS: Phosphorus 3.2 mg/dL (2.3-4.7)
[2019-05-04 05:45] LABS: Cardiac Risk 3.1 (Less than 4.5); Magnesium 1.7 mg/dL (1.6-2.6)
[2019-05-04] MEDS ORDERED: Lactated Ringer's 1,000 ML IV SCH (05:45)
[2019-05-04 05:57] LABS: Troponin I 2.326 ng/mL (< 0.028)
[2019-05-04] MEDS: Levothyroxine Sodium 112 MCG TAB PO SCH (06:01)
[2019-05-04] MEDS: Levothyroxine Sodium 25 MCG TAB PO SCH (06:02)
[2019-05-04] MEDS ORDERED: metFORMIN XR 500 MG TAB PO SCH (08:00)
--- NOTE | 2019-05-04 08:25 | PDOC.EVN ---
Event Note - Event Note Event Note: TAMP was notified at approximately 0745 on 05/04 that Mrs. Shaw had not informed the rounding physician that she was still experiencing chest pain. As such, a STAT CXR and troponin were ordered and Cardiology was consulted. Toponin: 4.925
[2019-05-04] MEDS: HumaLOG 300 UNITS/3 ML VIAL SC SCH ×3 (08:28→16:51)
[2019-05-04] MEDS: TICAGRELOR 90 MG TABLET PO SCH ×2 (08:32→21:58)
[2019-05-04] MEDS: Potassium Chloride 10 MEQ TAB PO SCH (08:32)
[2019-05-04] MEDS: Furosemide 40 MG TAB PO SCH ×2 (08:32→08:39)
[2019-05-04] MEDS: Insulin Glargine 60 UNITS in Pre-Filled Syringe 1 EACH SC SCH (08:33)
[2019-05-04] MEDS: Betamethasone Val 0.1% OINT 15 GM TUBE TOP SCH ×2 (08:37→21:57)
[2019-05-04] MEDS ORDERED: Calcium Chloride 1 GM/10 ML Abboject SYRINGE ONE (09:00)
[2019-05-04] MEDS ORDERED: Atropine Sulfate 1 mg/10 ml Syringe ONE (09:00)
[2019-05-04] MEDS ORDERED: Aspirin Chewable 81 MG TAB PO SCH (09:00)
[2019-05-04] MEDS ORDERED: TICAGRELOR 90 MG TABLET PO SCH (09:00)
[2019-05-04] MEDS ORDERED: Non-Formulary Item 1 EACH (Insulin Glargine,Hum.Rec.Anlog [Lantus Solostar] 60 UNIT) SQ SCH (09:00)
[2019-05-04 10:11] LABS: Critical Call Chem Troponin I RESULT DECREASING; Troponin I 4.801 ng/mL (< 0.028)
--- NOTE | 2019-05-04 10:34 | CON ---
DATE OF CONSULTATION: REASON FOR CONSULTATION: Non-Q [place]. HISTORY OF PRESENT ILLNESS: Ms. Shaw is 73-year-old woman with previous history of underlying coronary artery disease. She has a history of a bypass surgery with saphenous vein graft to the right coronary artery and [place] to the LAD. She has a history of saphenous vein graft to the OM that is occluded. She has undergone, 10 stents, over the last several years. She had stents placed in 2017 to the circumflex artery by myself. She then did well up until July 2018, where she underwent further stent placement to the circumflex artery in [place]. She underwent stent placement with a 2.5 Synergy stent. She gives a history of having accelerating angina over the last several weeks. She is requiring more, more nitroglycerin. She took up to 6 prior to presentation. She also presented with atrial fibrillation, which is felt to be a relatively new finding. She does have a history of mild anemia. She has been told she had a postoperative atrial fibrillation in the past and has never been on Xarelto, Pradaxa, or Coumadin. She is currently on Brilinta and aspirin. PAST MEDICAL HISTORY: Aortic insufficiency, CAD status post stent placement, diabetes mellitus, ovarian cancer, endometrial cancer, thyroidectomy, acid reflux, hypertension, thrombocytopenia, cirrhosis, iron-deficiency anemia, depression, cellulitis. CURRENT HOME MEDICATIONS: Include: 1. Atorvastatin. 2. Brilinta. 3. Humalog insulin. 4. Isosorbide. 5. Levothyroxine. 6. Metoprolol. 7. Pantoprazole. 8. Metformin. SOCIAL HISTORY: No current tobacco or alcohol use. REVIEW OF SYSTEMS: A 10-point review of systems is reviewed as above, otherwise negative. PHYSICAL EXAMINATION: GENERAL: Patient is a pleasant woman who is in no acute distress. The patient appears their stated age. VITAL SIGNS: Blood pressure 128/60, pulse 80, temperature 98.6. NEUROLOGIC: The patient is alert and oriented x3 with no focal neurologic deficits. HEENT: Sclerae without icterus. Mouth has moist mucous membranes with normal pallor. NECK: No JVD. Carotid upstroke brisk. No bruits bilaterally. LUNGS: Clear to auscultation with unlabored respirations. BACK: No scoliosis or kyphosis. CARDIAC: Irregularly irregular. ABDOMEN: Soft, nontender, nondistended. No peritoneal signs present. No hepatosplenomegaly. No abnormal striae. EXTREMITIES: 2+ femoral and 2+ dorsalis pedis pulses. No cyanosis, clubbing, or edema. SKIN: No gross abnormalities. PERTINENT LABORATORY DATA: Hemoglobin 9.4, hematocrit 28.5. Troponin 4.9 with a CK-MB of 21. IMPRESSION: 1. Unstable angina. 2. New onset atrial fibrillation. 3. Coronary artery disease. 4. Status post stent placement. 5. Status post bypass surgery. RECOMMENDATIONS: Ms. Shaw's symptoms are certainly consistent with unstable angina. Despite low hemoglobin, low platelet count, would recommend proceeding with coronary angiography given the recent findings. I discussed procedure in full detail with Ms. Shaw. Risks included, not limited to the following: I discussed the procedure in full detail with the patient. The risks of the procedure were also discussed. The risks of the procedure include but are not limited to the following: , stroke, [place], need for emergency surgery, loss of limb, bleeding, and infection, as well as a reaction to the dye causing kidney failure and needing long-term dialysis. I also discussed the risks of PCI to include all of the above including coronary dissection and perforation in addition to acute stent thrombosis and restenosis. All questions about the procedure were answered. Given the above, the patient agreed to proceed with coronary angiography and possible PCI. All questions were answered. Given the above, the patient agreed to proceed with the above procedure. Further recommendations pending the above. Job ID: [id number]
--- NOTE | 2019-05-04 10:59 | RAD ---
CHEST 1 VIEW: Date: 05/04/19 HISTORY: Chest pain. COMPARISON: Radiograph from prior day. FINDINGS: Heart size continues to be enlarged. Mild pulmonary venous congestion. No pneumothorax. Right and lef t neck surgical clips. IMPRESSION: Cardiomegaly with developing pulmonary venous congestion. POS: [facility]
[2019-05-04] MEDS ORDERED: Heparin (Artline) 1,000 ML ONE (12:15)
[2019-05-04] MEDS ORDERED: Lidocaine 1% (PF) 30 ML VIAL ONE (12:15)
[2019-05-04] MEDS ORDERED: Midazolam HCl 2 mg/2 ml Vial ONE (13:18)
[2019-05-04] MEDS ORDERED: Fentanyl 100 MCG/2 ML VIAL ONE ×2 (13:19→15:43)
[2019-05-04] MEDS ORDERED: Adenosine 6 MG/2 ML VIAL ONE (13:56)
[2019-05-04] MEDS ORDERED: Heparin 10,000 UNITS/1 ML VIAL ONE (13:56)
[2019-05-04] MEDS ORDERED: Nitroglycerin 100MG/250ML BOT 250 ML ONE (14:02)
[2019-05-04] MEDS ORDERED: Verapamil 5 MG/2 ML VIAL ONE (14:02)
[2019-05-04] MEDS ORDERED: Heparin (Artline) 500 ML ONE (14:08)
[2019-05-04] MEDS ORDERED: Iopamidol 370 76% 50 ML VIAL FS ONE (15:02)
[2019-05-04] MEDS ORDERED: Iopamidol 370 76% 100 ML VIAL ONE (15:02)
--- NOTE | 2019-05-04 15:08 | HP ---
CHIEF COMPLAINT: Chest pain. HISTORY OF PRESENT ILLNESS: Ms. Shaw is a 73-year-old white female patient with a history of coronary artery bypass surgery as well as multiple stents over the last several years. She was admitted with chest pain, already has an elevated troponin. We have consulted Cardiology to plan to take her to cardiac catheterization later this morning. PHYSICAL EXAMINATION: VITAL SIGNS: On exam, her blood pressure is 140/73, her pulse rate 82 and regular. She is afebrile. GENERAL: She is awake, alert, pleasant. Currently, having no chest pain. ENT: No erythema or exudate. NECK: Supple. CARDIAC: Heart rhythm regular. S4 apical gallop. No murmur or rub noted. LUNGS: Clear. ABDOMEN: Flat, benign, soft. NEUROLOGIC: No focal deficits. LABORATORY DATA: Troponins were elevated ASSESSMENT: [id number]-DY-[id number] myocardial infarction. PLAN: Already I have consulted Cardiology. Plan to take the patient for cardiac catheterization. Job ID: [id number]
--- NOTE | 2019-05-04 16:24 | EKG ---
Test Reason : STAT Blood Pressure : / mmHG Vent. Rate : 075 BPM Atrial Rate : 075 BPM P-R Int : 198 ms QRS Dur : 174 ms QT Int : 482 ms P-R-T Axes : 007 -62 111 degrees QTc Int : 538 ms Normal sinus rhythm Right bundle branch block Left anterior fascicular block Bifascicular block Left ventricular hypertrophy with repolarization abnormality Abnormal ECG When compared with ECG of 18-APR-2017 07:45, No significant change was found Confirmed by DR. Vashti MIRANDA (3) on 05/04/2019 4:23:40 PM Referred By: MINOO Confirmed By:DR. Vashti MIRANDA
--- NOTE | 2019-05-04 16:27 | EKG ---
Test Reason : Blood Pressure : / mmHG Vent. Rate : 072 BPM Atrial Rate : 072 BPM P-R Int : 000 ms QRS Dur : 176 ms QT Int : 496 ms P-R-T Axes : 000 -67 162 degrees QTc Int : 543 ms Sinus rhythm with 1st degree A-V block Left axis deviation Non-specific intra-ventricular conduction block abnormal stt changes Abnormal ECG When compared with ECG of 04-MAY-2019 02:34, (Unconfirmed) IA interval has decreased Non-specific intra-ventricular conduction block has replaced Right bundle branch block Confirmed by DR. Vashti MIRANDA (3) on 05/04/2019 4:26:39 PM Referred By: RICKY Confirmed By:DR. Vashti MIRANDA
[2019-05-04] MEDS ORDERED: TICAGRELOR 90 MG TABLET ONE (16:41)
[2019-05-04] MEDS ORDERED: Fentanyl 100 MCG/2 ML VIAL SLOW IVP PRN (17:59)
[2019-05-04] MEDS ORDERED: Acetaminophen/Codeine 30-300mg Tablet PO PRN (18:09)
[2019-05-04] MEDS ORDERED: Morphine 2 MG/ML SYRINGE SLOW IVP PRN (18:09)
[2019-05-04] MEDS ORDERED: Mag-Al 1200 mg/1200 mg/30 ML UDCUP PO PRN (18:09)
[2019-05-04] MEDS ORDERED: Nitroglycerin 0.4 MG TAB (25 Tab Bottle) SL PRN (18:09)
[2019-05-04] MEDS: Sodium Chloride 0.9% 1,000 ML IV SCH (20:32)
[2019-05-04] MEDS: Aggrastat 12.5 MG/250 ML 250 ML IVPB SCH (20:33)
[2019-05-04] MEDS: traZODone HCl 50 MG TAB PO SCH (21:58)
[2019-05-04] MEDS: Atorvastatin Calcium 40 MG TAB PO SCH (21:58)
[2019-05-05 05:08] LABS: #Eosinphils 0.1 thou/uL (0.0-0.7); #Lymphocytes 0.5 thou/uL (1.20-3.40); #Monocytes 0.7 thou/uL (0.11-0.59); #Neutrophils 8.3 thou/uL (1.40-6.50); %Basophils 0.2 % (0.0-1.0); %Eosinophils 0.5 % (0.0-10.0); %Lymphocytes 5.6 % (21.0-51.0); %Monocytes 7.1 % (0.0-10.0); %Neutrophils 86.6 % (42.0-75.0); Hemoglobin 10.4 g/dL (12.0-16.0); Mean Corpuscular HGB CONC 33.6 g/dL (32.0-36.0); Mean Corpuscular Hemoglobin 28.9 pg (27.0-31.0); Mean Corpuscular Volume 86.1 fL (78.0-98.0); Mean Platelet Volume 7.4 fL (7.4-10.4); Platelet Count 114 thou/uL (130-400); RBC Distribution Width 15.3 % (11.5-14.5); White Blood Cell (WBC) Count 9.6 thou/uL (4.8-10.8)
[2019-05-05 05:29] LABS: ALT (SGPT) 12 U/L (8-55); AST (SGOT) 30 U/L (5-34); Albumin 3.1 g/dL (3.4-4.8); Alkaline Phosphatase 79 U/L (40-110); Anion Gap 14 mmol/L (10-20); BUN (Urea Nitrogen) 11 mg/dL (9.8-20.1); Calc. Creatinine Clearance 109 mL/min (70-130); Calcium 8.4 mg/dL (7.8-10.44); Carbon Dioxide 22 mmol/L (23-31); Chloride 102 mmol/L (98-107); Estimated GFR-MDRD 77; Globulin 3.1 g/dL (2.4-3.5); Glucose 252 mg/dL (83-110); Potassium 3.7 mmol/L (3.5-5.1); Protein, Total 6.2 g/dL (6.0-8.3); Sodium 134 mmol/L (136-145)
[2019-05-05 05:30] LABS: Cardiac Risk 3.2 (Less than 4.5)
--- NOTE | 2019-05-05 05:32 | PDOC.FM ---
- Subjective Subjective: Mrs. Shaw was resting comfortably with her at bedside at the time of evaluation. She reported no acute overnight events such as a return of her chest pain, or headaches, N/V, changes in vision or shortness of breath. She stated that she was able to have a normal BM and had no difficulty voiding. - Objective Vital Signs & Weight: Vital Signs (12 hours) Temp Pulse Resp BP BP Pulse Ox 05/05/19 04:00 98.3 F 82 18 127/56 L 92 L 05/04/19 19:50 98 F 65 18 104/55 L 98 Weight Weight 102.104 kg I&O: 05/03/19 05/04/19 05/05/19 06:59 06:59 06:59 Intake Total 715 Output Total 325 Balance 390 Result Diagrams: 05/05/19 04:26 05/05/19 04:26 EKG Reviewed by me: Yes Radiology Reviewed by me: Yes Phys Exam - Physical Examination Constitutional: NAD HEENT: PERRLA, moist MMs, sclera anicteric, oral pharynx no lesions Neck: no nodes, supple, full ROM Respiratory: no rales, no rhonchi, clear to auscultation bilateral Mild expiratory wheezes Cardiovascular: RRR, no rub 3/6 systolic murmur No obvious hematoma formation at right inguinal fold Gastrointestinal: soft, non-tender, no distention Musculoskeletal: no edema, pulses present Neurological: non-focal, moves all 4 limbs Lymphatic: no nodes Psychiatric: normal affect Skin: no rash Dx/Plan - Plan Plan: 1. NSTEMI -Patient has complex CV history, including previous MT, multiple stent placements and chronic A-Fib requiring anti-coagulation -Patient has known history of RBBB with left Anterior Fasicular Block -3D history of worsening chest pain, not relieved by Nitro -Most recent EKG reveals widened QRS, A-Fib w/ RVR prior to Diltiazem gtt -Trops: 0.039, 0.504, 2.33 > 4.925 > 4.801 -BNP: 578, similar to last hospitalization on 04/13/17 -Will continue Diltiazem gtt at 2.5 mg/hr, per Cardiology recommendations -Will monitor vitals closely - Nursing staff will notify if SBP < 80 or HR > 110 -Nitro PRN for chest pain -Continue home anti-coagulation medication regimen -M.7 / Phos: 3.2 / TSH: 0.579 -Fasting Lipid Panel: Pending -Cardiology Consult: Currently being followed by Dr. Salomon -Heart Catheterization performed on 05/04, s/p placement of 2 stents 2. A-Fib w/ RVR, now rate controlled -Continue home anti-coagulation medication regimen -Will continue Diltiazem gtt at 2.5 mg/hr per Cardiology recommendations -Cardiology Consult: Currently being followed by Dr. Salomon 3. Hx of MT, s/p CABG -10 additional drug-eluting stents placed -Last stents (2) placed in July 2018 following heart catheterization at outside hospital -Strict I/Os -Daily weights -Currently NPO - plan for transition to Heart Healthy Diet 4. DM2 -Continue home DM2 medication regimen -Glucose checks QACHS -Diet: Carbohydrate Conscious -Hypoglycemia Protocol -Last HgA1C was 8.1 on 04/02/2019 - will not reorder during this hospital stay 5. Hypothyroidism s/p Thyoridectomy -Thyroid previously removed 2/2 malignancy -TSH: 0.579 -Continue home Synthroid regimen 6. HLD -Previously on Atorvastatin 20 mg daily -Increase Atorvastatin to 40 mg daily -Fasting Lipid Panel: Pending 7. GERD -Continue home Pantoprazole regimen -Encourage proper positioning during meals Code: Full Diet: Heart Healthy / Carbohydrate Conscious Activity: Ad Sarah DVT PPx: Ticagrelor / ASA 81 Dispo: Patient currently stable on [place] [facility], s/p heart catheterization. Await additional lab values and Cardiology recommendations. Ensure adequate pain control and continued maintenance of other comorbid conditions. Plan for risk stratification and DC home w/ close f/u with PCP and Senior Nurse Manager. Expected LOS < 24H. Addendum - Attending - Attending Attestation Date/Time: 05/05/19 1342 I personally evaluated the patient and discussed the management with Dr. Lynch I agree with the History, Examination, Assessment and Plan documented above with any addition or exceptions noted below - Prior to morning rounds, patient had code blue called due to sinus pause >10 sec. responded to atropine and epinephrine; Dr. Salomon at bedside and taken to supervisor laboratory animal facility for temporary pacer. Patient seen in ICU post procedure. Intubated/sedated. Afebrile VSS. A/P : 1) Sick sinus syndrome- necessitating emergent transvenous pacer placement- continue supportive care; plans as per cardiology, 2) NSTEMI - stent placement on 05/04; repeat left heart cath today with pacer placement- no occlusion of stent. Continue current meds. 3) DM- monitor accurchecks q6 hours and SSI.
[2019-05-05] MEDS: Levothyroxine Sodium 112 MCG TAB PO SCH (05:40)
[2019-05-05] MEDS: Levothyroxine Sodium 25 MCG TAB PO SCH (05:40)
[2019-05-05] MEDS: HumaLOG 300 UNITS/3 ML VIAL SC SCH (08:38)
[2019-05-05] MEDS: Potassium Chloride 10 MEQ TAB PO SCH (08:40)
[2019-05-05] MEDS: Insulin Glargine 60 UNITS in Pre-Filled Syringe 1 EACH SC SCH ×2 (08:40→11:34)
[2019-05-05] MEDS: Aspirin Chewable 81 MG TAB PO SCH (08:40)
[2019-05-05] MEDS: TICAGRELOR 90 MG TABLET PO SCH ×2 (08:40→21:01)
[2019-05-05] MEDS: Betamethasone Val 0.1% OINT 15 GM TUBE TOP SCH ×2 (08:44→21:20)
[2019-05-05] MEDS: Aggrastat 12.5 MG/250 ML 250 ML IVPB SCH (08:45)
[2019-05-05] MEDS: Sodium Chloride 0.9% 1,000 ML IV SCH (08:45)
[2019-05-05] MEDS ORDERED: Atropine Sulfate 1 mg/10 ml Syringe ONE (09:19)
[2019-05-05] MEDS ORDERED: DOPamine 400 MG/D5W 250 ML 250 ML ONE (09:19)
[2019-05-05] MEDS ORDERED: DOBUTamine 500 mg/250 ml 500 MG in Premix Bag 1 BAG IVPB SCH (09:30)
[2019-05-05] MEDS ORDERED: Midazolam HCl 2 mg/2 ml Vial ONE (09:57)
[2019-05-05] MEDS ORDERED: Fentanyl 100 MCG/2 ML VIAL ONE (10:12)
[2019-05-05 10:41] LABS: Actual Bicarbonate (HCO3a) 13.1 mEq/L (22-28); Analyzer IN Cardio OR; Base Excess (BEa) -14.2 mEq/L (-2.0 to +3.0); CO2 Tension 35.8 mmHg (35.0-45.0); Calcium, Ionized 1.24 mmol/L (1.12-1.30); Carboxyhemoglobin (COHb) 1.1 gm% (0.0-3.0); Hemoglobin (Hb) 10.3 g/dL (12.0-16.0); O2 Tension (PaO2) 113.5 mmHg (> 70.0); Potassium - ABG Lab 3.76 mmol/L (3.70-5.30)
[2019-05-05 10:42] LABS: Puncture Site ALINE; pH, Arterial 7.18 (7.35-7.45)
--- NOTE | 2019-05-05 10:46 | EKG ---
Test Reason : STAT Blood Pressure : / mmHG Vent. Rate : 063 BPM Atrial Rate : 063 BPM P-R Int : 182 ms QRS Dur : 164 ms QT Int : 536 ms P-R-T Axes : 008 -64 135 degrees QTc Int : 548 ms Normal sinus rhythm Left axis deviation Non-specific intra-ventricular conduction block Nonspecific ST-T changes Abnormal ECG When compared with ECG of 04-MAY-2019 07:30, MO interval has increased T wave inversion more evident in Lateral leads Confirmed by DR. Vashti MIRANDA (3) on 05/05/2019 10:45:36 AM Referred By: AUSTIN Confirmed By:DR. Vashti MIRANDA
--- NOTE | 2019-05-05 11:08 | OP ---
DATE OF PROCEDURE: 05/05/2019 PREPROCEDURE DIAGNOSIS: Sinus pause greater than 10 seconds. POSTPROCEDURE DIAGNOSIS: Sick sinus syndrome. PROCEDURE PERFORMED: Temporary pacemaker. DESCRIPTION OF PROCEDURE: The patient all in the floor developed ventricular standstill greater than 10 seconds. This occurred on multiple occasions. She received atropine in addition to epinephrine. She was transferred urgently to the carpenter/labor for urgent temporary pacemaker. She was electively intubated while in the carpenter/labor. Access obtained successfully in the right femoral vein. Temporary pacemaker was placed successfully into the right ventricle. It was set at 60. The patient also underwent angiography of the left system only to assess whether the stent had occluded. The stent appeared patent within the circumflex artery. The patient was transferred to the ICU in guarded condition. Job ID: [id number]
--- NOTE | 2019-05-05 11:18 | RAD ---
Exam: Portable chest one view: HISTORY: Respiratory insufficiency COMPARISON: 05/04/2019 9:18 AM FINDINGS: Post midline sternotomy. Endotracheal tube in satisfactory location. NG tube in place which appears t o extend below the level of the hemidiaphragm although the distal tip is not definitely seen. Cardiomegaly. Bilateral vascular congestion. New confluent alveolar parenchymal changes in the left u pper lobe concerning for pneumonia and/or aspiration IMPRESSION: New confluent alveolar parenchymal changes in the left upper lobe. Cardiomegaly with bilateral vascul ar congestion. Continued short-term follow-up for clearing or stability.
--- NOTE | 2019-05-05 11:36 | CON ---
DATE OF CONSULTATION: HISTORY OF PRESENT ILLNESS: Ivet Shaw is a 73-year-old unfortunate female, who has known history of coronary artery disease, presented to the hospital with chest pain. She has known history of severe carotid disease. They live in [place], but visit here locally for the football game. She has had multiple stents, about 10 as per the barrel stave inspector. She underwent cardiac catheterization today and underwent a repeat stenting of her LAD stent on top of her stent x4. Vessel is severely narrowed. She then had an episode of asystole. CPR was initiated. She had traumatic intubation. There was blood coming out of the nose in endotracheal tube. She was left intubated on the vent. She is now in the ICU on the vent. is here at the bedside and gives additional information. PAST MEDICAL HISTORY: Coronary artery disease with numerous stents, followed to by [place] physicians; history of hypothyroidism; hypertension; hyperlipidemia. She is bipolar by history. PAST SURGICAL HISTORY: Multiple catheterizations, previous ablation, previous CABG, previous oophorectomy, previous , thyroid surgery. SOCIAL HISTORY: Essentially nonsmoker. HOME MEDICATIONS: Include, 1. Nitroglycerin. 2. Flonase. 3. Metformin 500 b.i.d. 4. Brilinta 90 b.i.d. 5. Toprol-XL 12.5. 6. Insulin. 7. Potassium. 8. Synthroid. 9. Lasix. ALLERGIES: HYDROCODONE. REVIEW OF SYSTEMS: Unobtainable. PHYSICAL EXAMINATION: VITAL SIGNS: Sats are 100%, pulse 108, blood pressure 108/80, respirations 18. CHEST: Decreased breath sounds. Bilateral rhonchi. CARDIAC: Normal S1 and S2. ABDOMEN: Negative mass. LABORATORY DATA: White count 9,000, H and H are 10 and 31, platelet count 114. The pO2 is 113, pCO2 is 30, pH 7.18, rate of 15, 80%, PEEP of 10. Lytes are normal. Glucose 280. IMPRESSION: 1. Emergency cardiac catheterization and multiple stents followed by asystole requiring cardiopulmonary resuscitation. 2. Morbid obesity with severe deconditioning, probably sleep apnea. 3. I have started empiric antibiotics because of significant bleeding post traumatic intubation. 4. She has a temporary pacemaker since she had a systolic event. 5. Diabetes. 6. Morbid obesity. 7. Hypothyroidism. PLAN: We will monitor until she is more stable over the next 24 to 48 hours. Otherwise, continue cardiac care, empiric antibiotics, neb treatments, and supportive care. This is a 45-minute critical care time. Job ID: [id number]
[2019-05-05] MEDS ORDERED: Dextrose 5% in Water 1,000 ML IV PRN (11:49)
[2019-05-05] MEDS ORDERED: Dextrose 50% Abboject 50 ML SYRINGE SLOW IVP PRN (11:49)
--- NOTE | 2019-05-05 11:53 | CT ---
CTA Angio Chest W WO Con 05/05/2019 11:01 AM Indication: History of cardiac arrest concern for pulmonary embolus Technique: Multiple CTA images were obtained of the thorax with IV contrast. 3-D rendering: MIP ravi nstructed images were created and reviewed. Comparison: Prior CT PE study dated April 14, 2017 Findings: Pulmonary arteries: No central or segmental pulmonary embolus is evident. Heart and Aorta: There is a moderate cardiomegaly. There are prominent calculations involving the co ronary arteries and thoracic aorta. There is postsurgical change of a prior CABG. Mediastinum:Patient is intubated with gastric catheter placement. Lungs:There are airspace opacities seen within the left upper lobe, posterior right upper lobe and madeline th lower lobes suspicious for either airspace edema, hemorrhage or aspiration and/or pneumonia Pleural space: Small bilateral pleural effusions Upper Abdomen: No acute abnormality. Osseous Structures: No acute osseous abnormality. There is scattered degenerative and osteoarthritic change present. Soft tissues:No abnormality. Other findings:None. Impression: No central or segmental pulmonary embolus. Bilateral airspace opacity possibly related to edema, hemorrhage, aspiration and/or pneumonia. Small bilateral pleural effusions Moderate cardiomegaly
[2019-05-05] MEDS ORDERED: Propofol BOLUS 1,000 MG/100 ML VIAL IV PRN (11:59)
[2019-05-05] MEDS ORDERED: DISCONTINUE PREVIOUS NARCOTIC PAIN MEDICATIONS AND BENZODIAZEPINES FS SCH (11:59)
[2019-05-05] MEDS ORDERED: Morphine 2 MG/ML SYRINGE SLOW IVP PRN (11:59)
[2019-05-05] MEDS ORDERED: fentaNYL Citrate/PF 2,000 MCG in Sodium Chloride 0.9% 60 ML IV SCH (11:59)
[2019-05-05] MEDS ORDERED: Fentanyl BOLUS 250 ML IVPB PRN (11:59)
[2019-05-05] MEDS ORDERED: Ventilator Sedation Protocol 1 EACH FS SCH (12:00)
[2019-05-05] MEDS ORDERED: ISOVUE-370 76%-LOCM 1 ML ONE (12:00)
[2019-05-05 12:02] LABS: CKMB 4.7 ng/mL (0-6.6)
[2019-05-05 12:22] LABS: Bilirubin Negative (Negative); Blood, Urine Large (Negative); Glucose, Urine (Dipstick) 250 mg/dL (Negative); Leukocyte Small (Negative); Nitrite Negative (Negative); Protein, Urine (Dipstick) > or equal to 300 mg/dL (Neg-Trace)
[2019-05-05 12:29] LABS: Clarity Turbid (Clear)
[2019-05-05 12:40] LABS: RBC/HPF Greater than 50 HPF (0-3); WBC/HPF Greater Than 50 HPF (0-3)
[2019-05-05 12:42] LABS: Bacteria/HPF None Seen HPF (None Seen); Renal Epithelial 0-3 HPF (None Seen); Squamous Epithelial 0-3 HPF (0-3); Transitional Epithelial 0-3 HPF (None Seen)
[2019-05-05 12:44] LABS: Urine Culture Reflex Yes Yes
--- NOTE | 2019-05-05 12:46 | EKG ---
Test Reason : TIMED Blood Pressure : / mmHG Vent. Rate : 076 BPM Atrial Rate : 076 BPM P-R Int : 176 ms QRS Dur : 166 ms QT Int : 490 ms P-R-T Axes : 055 -64 112 degrees QTc Int : 551 ms Sinus rhythm with PVC's Right bundle branch block Left anterior fascicular block Bifascicular block Septal infarct , age undetermined Abnormal ECG When compared with ECG of 04-MAY-2019 18:58, (Unconfirmed) Abberant conduction is now Present Right bundle branch block has replaced Non-specific intra-ventricular conduction block Septal infarct is now Present Confirmed by DR. Vashti MIRANDA (3) on 05/05/2019 12:46:42 PM Referred By: AUSTIN Confirmed By:DR. Vashti MIRANDA
[2019-05-05] MEDS: Cefepime 1 GM in Sodium Chloride 0.9% 100 ML IVPB SCH ×2 (13:56→23:36)
[2019-05-05] MEDS: Dexamethasone 4 mg/ml Vial SLOW IVP SCH ×3 (13:59→22:48)
[2019-05-05] MEDS ORDERED: Iopamidol 370 76% 50 ML VIAL FS ONE (15:03)
[2019-05-05] MEDS ORDERED: Iopamidol 370 76% 100 ML VIAL ONE (15:03)
--- NOTE | 2019-05-05 15:44 | CON ---
DATE OF CONSULTATION: TOTAL CRITICAL CARE TIME: 1 hour. Ms. Shaw today had a code leigh called. She went into a ventricular standstill for 10 to 12 seconds. This recurred over 4 times. Marla Louis was called. I was at bedside during the episode. She was given IV atropine in addition to IV epinephrine. The patient had been on IV Cardizem at 2.5 mg/hour. The patient was having paroxysmal atrial fibrillation. She was also on low-dose beta-livan therapy on Toprol-XL 12.5 mg p.o. at bedtime. Between spells, she did not complain of chest pain or pressure. No lightheadedness or dizziness. The patient was then sent urgently after coding for emergent temporary pacemaker. Also, the plan was to proceed with coronary angiography to assess her recent stent placement. Temporary pacemaker was placed successfully. Angio of the left system was performed and revealed a patent stent within the circumflex artery. The patient was also subsequently intubated in the labor commissioner by Anesthesia. This was a traumatic intubation and was very difficult. She did have significant bleeding present. The patient was transferred to the ICU in guarded condition. I visited with the for some time to discuss her prognosis. CT scan of the chest was negative for PE. The patient did have a previous history of DVT. The patient has not been on anticoagulation. Her CK-MB was also within normal limits. I did visit with her again after several hours of the initial insult. The patient was awake and following commands, but remained intubated. She was off all pressors. Initially, she was on dopamine. She likely will need a pacemaker placement. I doubt low-dose calcium channel blockade or beta-livan treatment cause her current demise. Job ID: [id number]
[2019-05-05] MEDS: HumaLOG 300 UNITS/3 ML VIAL SC PRN ×2 (16:17→21:13)
[2019-05-05] MEDS: Propofol 1,000 MG/100 ML VIAL IV PRN ×2 (16:29→22:45)
[2019-05-05] MEDS: traZODone HCl 50 MG TAB PO SCH (21:01)
[2019-05-05] MEDS: Atorvastatin Calcium 40 MG TAB PO SCH (21:01)
[2019-05-05] MEDS: Lorazepam 2 MG/ML VIAL SLOW IVP PRN (21:09)
[2019-05-05] MEDS: Acetaminophen 325 MG TAB PO PRN (23:36)
[2019-05-06] MEDS: HumaLOG 300 UNITS/3 ML VIAL SC PRN ×4 (03:58→21:31)
[2019-05-06] MEDS: Propofol 1,000 MG/100 ML VIAL IV PRN ×3 (04:20→22:50)
[2019-05-06] MEDS: Levothyroxine Sodium 112 MCG TAB PO SCH (05:17)
[2019-05-06] MEDS: Levothyroxine Sodium 25 MCG TAB PO SCH (05:17)
[2019-05-06] MEDS: Dexamethasone 4 mg/ml Vial SLOW IVP SCH (05:17)
--- NOTE | 2019-05-06 06:56 | PDOC.FM ---
- Subjective Subjective: NAEO. No concerns per nursing. Patient able to respond with nodding and shaking head. Denies pain. Able to follow commands. - Objective MAR Reviewed: Yes Vital Signs & Weight: Vital Signs (12 hours) Temp Pulse Resp BP Pulse Ox 05/06/19 06:37 81 115/68 05/06/19 06:00 20 05/06/19 04:00 98.7 F 20 05/06/19 02:00 20 05/06/19 00:00 100.3 F H 20 05/05/19 23:44 84 20 100 05/05/19 22:00 20 05/05/19 20:54 20 05/05/19 20:00 99.5 F 100 05/05/19 19:25 20 Weight Weight 104.4 kg Most Recent Monitor Data Heart Rate from ECG 76 NIBP 115/67 NIBP BP-Mean 83 Respiration from ECG 20 SpO2 100 I&O: 05/04/19 05/05/19 05/06/19 06:59 06:59 06:59 Intake Total 715 1701 847 Output Total 325 400 795 Balance 390 1301 52 Result Diagrams: 05/05/19 04:26 05/05/19 04:26 Phys Exam - Physical Examination Constitutional: NAD HEENT: sclera anicteric ecchymosis on ant neck; dried blood at the nares; dry MM Neck: supple Respiratory: no wheezing, no rales, no rhonchi, clear to auscultation bilateral anteriorly Cardiovascular: RRR Gastrointestinal: soft, non-tender, no distention, positive bowel sounds Musculoskeletal: pulses present trace edema b/l Neurological: non-focal, moves all 4 limbs opens eye spontaneously, moves all limbs Skin: no rash, normal turgor, cap refill <2 seconds Dx/Plan (1) Atrial fibrillation with rapid ventricular response Code(s): I48.91 - UNSPECIFIED ATRIAL FIBRILLATION Status: Acute (2) Chest pain Code(s): R07.9 - CHEST PAIN, UNSPECIFIED Status: Acute (3) CAD (coronary artery disease) Code(s): I25.10 - ATHSCL HEART DISEASE OF [place] CORONARY ARTERY W/O ANG PCTRS Status: Chronic (4) CHF (congestive heart failure) Code(s): I50.9 - HEART FAILURE, UNSPECIFIED Status: Chronic (5) Hypothyroidism Code(s): E03.9 - HYPOTHYROIDISM, UNSPECIFIED Status: Chronic (6) NSTEMI (non-ST elevated myocardial infarction) Code(s): I21.4 - NON-ST ELEVATION (NSTEMI) MYOCARDIAL INFARCTION Status: Acute (7) NICKI (obstructive sleep apnea) Code(s): G47.33 - OBSTRUCTIVE SLEEP APNEA (ADULT) (PEDIATRIC) Status: Acute (8) Diabetes mellitus Code(s): E11.9 - TYPE 2 DIABETES MELLITUS WITHOUT COMPLICATIONS Status: Chronic (9) HTN (hypertension) Code(s): I10 - ESSENTIAL (PRIMARY) HYPERTENSION Status: Chronic (10) Hyperlipidemia Code(s): E78.5 - HYPERLIPIDEMIA, UNSPECIFIED Status: Chronic (11) Obesity (BMI 30-39.9) Code(s): E66.9 - OBESITY, UNSPECIFIED Status: Chronic - Plan Plan: #NSTEMI - Patient initially presented with 3 day hx of worsening chest pain not relieved with nitro. EKG showed widened QRS, afit w/ RVR. Hx of previous HI with multiple stents. Patient troponins from from 0.039 -> 4.801. Cards was consulted. She was taken back for cath on 05/04 with placement of 2 stents. - on 05/05 Code blue called - patient had asystole for about 10-12 seconds. She was given atropine and epi and taken emergently to the labor/excavator where a transvenous pacer. Stenting of the circumflex remained patent. Patient remained intubated after this procedure and was moved to the ICU. CTA neg for PE. She was placed on a dobutamine drip for a period of time to help with pressure support. Patient was started on cefepime due to traumatic intubation. Will refer to pulm for weening patient off vent. - BNP: 578 -> 1564. Echo on 05/05 showing EF 30-35%, hypokinetic motion of the inferolateral wall noted in the LV, LA mod dilated, mod - sev aortic stenosis. - Will monitor vitals closely - Nursing staff will notify if SBP < 80 or HR > 110 - Nitro PRN for chest pain - Continue home anti-coagulation medication regimen - Fasting Lipid Panel: nml - Cardiology following, appreciate recommendations. Pulm consulted as patient was moved to the ICU, appreciate recommendations. #A-Fib w/ RVR, now rate controlled - Continue home anti-coagulation medication regimen - D/c Diltiazem gtt due to above. Patient now in sinus rhythm with transvenous pacer in place. Will likely need permanent pacemaker. - Cardiology Consult: Currently being followed by Dr. Salomon #Hx of HI, s/p CABG Hx of 10 drug-eluting stents placed. Last stents (2) placed in July 2018 following heart catheterization at outside hospital. See above. - Strict I/Os - Daily weights #DM2 - Continue home DM2 medication regimen - Glucose checks QACHS - Hypoglycemia Protocol - Last HgA1C was 8.1 on 04/02/2019 - will not reorder during this hospital stay #Hypothyroidism s/p Thyoridectomy - Thyroid previously removed 2/2 malignancy - TSH: 0.579 - Continue home Synthroid regimen #HLD - Previously on Atorvastatin 20 mg daily - Increase Atorvastatin to 40 mg daily - Fasting Lipid Panel: nml #GERD - Continue home Pantoprazole regimen - Encourage proper positioning during meals Code: Full Diet: Heart Healthy / Carbohydrate Conscious Activity: Ad Sarah DVT PPx: Ticagrelor / ASA 81 Dispo: pending clinical course. Cards/pulm recommendations apprecaited. Case discussed with Dr. Messer
[2019-05-06 07:07] LABS: Base Excess (BEa) -2.6 mEq/L (-2.0 to +3.0); CO2 Tension 27.3 mmHg (35.0-45.0); Hemoglobin (Hb) 9.4 g/dL (12.0-16.0); O2 Tension (PaO2) 217.3 mmHg (> 70.0); pH, Arterial 7.48 (7.35-7.45)
[2019-05-06 07:08] LABS: Calcium, Ionized 1.18 mmol/L (1.12-1.30); Potassium - ABG Lab 3.94 mmol/L (3.70-5.30)
[2019-05-06 07:09] LABS: Puncture Site RBA
[2019-05-06 07:10] LABS: ALV-art Gradient 140.725 (0-20)
[2019-05-06] MEDS: Lorazepam 2 MG/ML VIAL SLOW IVP PRN ×2 (08:07→16:40)
--- NOTE | 2019-05-06 08:17 | RAD ---
CHEST 1 VIEW: HISTORY: Respiratory distress. COMPARISON: Prior day's exam. FINDINGS: Endotracheal and NG Tubes are in satisfactory position. Heart size is enlarged with postop sternotom y changes. Pulmonary vessels are engorged suggesting an element of edema. There has been a definite improvement to the left upper lobe parenchymal change. IMPRESSION: Resolving left upper lobe parenchymal lung changes. POS: TPC
[2019-05-06] MEDS: Potassium Chloride 10 MEQ TAB PO SCH (08:43)
[2019-05-06] MEDS: Aspirin Chewable 81 MG TAB PO SCH (08:44)
[2019-05-06] MEDS: Betamethasone Val 0.1% OINT 15 GM TUBE TOP SCH ×2 (08:44→21:38)
[2019-05-06] MEDS ORDERED: Communication Order-Pharmacy FS SCH (08:45)
--- NOTE | 2019-05-06 09:12 | PRG ---
DATE OF SERVICE: 05/06/2019 SUBJECTIVE: Ivet Shaw this morning, she is intubated in the vent, sedated. OBJECTIVE: VITAL SIGNS: Blood pressure 118/85, pulse 115, respiratory rate is set at 20, sats 100%, afebrile. I's and O's 847 in and 795 out. CHEST: Bilateral rhonchi and crackles. CARDIAC: Normal S1 and S2. No gallops. ABDOMEN: No masses. LABORATORY DATA: BNP is 1564. PO2 is 217, pCO2 of 207, pH 7.48, rate of 24, pressure support 14, PEEP of 5. X-ray shows cardiomegaly, CHF. IMPRESSION AND PLAN: Acute coronary syndrome and aortic stenosis. PLAN: Surgery plans to take her back to [facility], which I would agree. We will consider transferring her to [place] for transcutaneous aortic valve replacement if she has critical aortic stenosis. She was given Decadron for traumatic intubation for 24 hours. Otherwise, PT, supportive care, nutrition for next 24 to 48 hours. We will follow. Job ID: [id number]
[2019-05-06] MEDS ORDERED: Iopamidol 370 76% 50 ML VIAL FS ONE (09:23)
[2019-05-06] MEDS ORDERED: Iopamidol 370 76% 100 ML VIAL ONE (09:23)
--- NOTE | 2019-05-06 09:28 | PRG ---
DATE OF SERVICE: 05/06/2019 SUBJECTIVE: Ms. Shaw has been stable. She is currently intubated. Heart rate and blood pressure remain stable overnight. Heart rate is increased in the 1-teens. She does awaken to voice. She is moving all 4 extremities. OBJECTIVE: VITAL SIGNS: Blood pressure 118/87; pulse initially 80s to 90s, but now in the 100s. LUNGS: Clear to auscultation. HEART: Irregular rate and rhythm with 1/6 to 2/6 systolic ejection murmur heard best at the right upper sternal border. ABDOMEN: Soft, nontender, and nondistended. EXTREMITIES: No edema. PERTINENT LABORATORY DATA: Hemoglobin 10.4. Creatinine 0.74. IMPRESSION: 1. Severe aortic stenosis. 2. Non-Q-wave myocardial infarction. 3. Coronary artery disease. 4. Status post bypass surgery. RECOMMENDATIONS: Certainly, Ms. Shaw is a case continues to be complex. She has a history of CAD, status post bypass surgery with previous occlusion to the vein graft to the circumflex artery. She has had severe stenosis to the ostium of the circumflex artery diagnosed in 2016, followed by in-stent restenosis in July of 2018, with stent placement followed by a non-Q-wave SD with thrombus present within the same area in May of 2019. She has had multiple stents placed within this area. She also developed ventricular standstill yesterday that required temporary pacemaker implantation. She has remained stable since intubation and since temporary pacemaker implantation. I discussed this in detail with Mr. Shaw. He states her valve was significant, but not severe enough to recommend TAVR per her ultrasonic cleaner in [place]. At this point, the mean and peak gradients are difficult to assess due to an LVEF of 30% to 35%. At this point, recommend the followin. EP consultation to assess for ICD placement. 2. Repeat left and right heart catheterization to assess the aortic valve area. 3. If valve area appears to be severe, we would likely recommend transfer to [facility] for possible TAVR. 4. I discussed the procedure in full detail with Mr. Shaw. Risks included, not limited to the following: , stroke, SD, need for emergency surgery, loss of limb, bleeding, and infection, as well as a reaction to the dye causing kidney failure and needing long-term dialysis. I also discussed the risks of PCI to include all of the above including coronary dissection and perforation in addition to acute stent thrombosis and restenosis. 5. All questions were answered. Given the above, the patient agreed to proceed with the procedure. Job ID: [id number]
[2019-05-06] MEDS: TICAGRELOR 90 MG TABLET PO SCH ×2 (10:31→21:03)
[2019-05-06 10:40] LABS: ALT (SGPT) 19 U/L (8-55); AST (SGOT) 28 U/L (5-34); Albumin 3.1 g/dL (3.4-4.8); Alkaline Phosphatase 101 U/L (40-110); Anion Gap 15 mmol/L (10-20); BUN (Urea Nitrogen) 16 mg/dL (9.8-20.1); Bilirubin, Total 0.9 mg/dL (0.2-1.2); Calc. Creatinine Clearance 89 mL/min (70-130); Calcium 8.9 mg/dL (7.8-10.44); Carbon Dioxide 19 mmol/L (23-31); Chloride 104 mmol/L (98-107); Estimated GFR-MDRD 59; Globulin 3.3 g/dL (2.4-3.5); Glucose 338 mg/dL (83-110); Phosphorus 3.9 mg/dL (2.3-4.7); Potassium 3.8 mmol/L (3.5-5.1); Protein, Total 6.4 g/dL (6.0-8.3); Sodium 134 mmol/L (136-145)
--- NOTE | 2019-05-06 10:58 | PRG ---
DATE OF SERVICE: 05/06/2019 Yesterday, Ms. Shaw had a significant bradyarrhythmia and had to be taken emergently to the production laborer for pacemaker placement. Her echo also demonstrated possible severe aortic stenosis, although it was a suboptimal quality study. She is to be taken back to the production laborer this morning to reexamine her aortic valve. She is sedated on the ventilator. If severe aortic stenosis is found that requires transcutaneous valve replacement, she will be transferred to [facility]. Job ID: [id number]
[2019-05-06] MEDS ORDERED: Heparin (Artline) 1,000 ML ONE (11:05)
[2019-05-06] MEDS ORDERED: Lidocaine 1% (PF) 30 ML VIAL ONE ×2 (11:05→12:59)
[2019-05-06 11:19] LABS: CKMB 3.7 ng/mL (0-6.6)
[2019-05-06 11:29] LABS: Troponin I 1.381 ng/mL (< 0.028)
[2019-05-06] MEDS: Cefepime 1 GM in Sodium Chloride 0.9% 100 ML IVPB SCH (11:45)
[2019-05-06] MEDS ORDERED: Heparin (Artline) 500 ML ONE (11:56)
[2019-05-06] MEDS ORDERED: Metoprolol Tartrate 5 MG/5 ML VIAL ONE (12:19)
[2019-05-06] MEDS ORDERED: Fentanyl 100 MCG/2 ML VIAL ONE (12:43)
[2019-05-06] MEDS ORDERED: CEFAZOLIN 1 GM VIAL ONE (12:53)
--- NOTE | 2019-05-06 14:18 | CON ---
DATE OF CONSULTATION: 05/06/2019 REASON FOR CONSULTATION: Complete heart block and evaluation for pacemaker defibrillator. HISTORY OF PRESENT ILLNESS: Ms. Shaw is a 73-year-old woman, who initially presented to the emergency room with chest pain and weakness. She has a significant history of extensive coronary artery disease with a coronary artery bypass grafting in 2017 with 10 subsequent stents. She had been taking her nitroglycerin daily and up to 3 times a day for the past 3 days and was not feeling well the morning she came in. Her pain worsened and was not resolved by nitroglycerin, thus prompting her to seek emergent medical attention. She has a history of right bundle branch block with left anterior fascicular block, but presented with a newly found left bundle-branch block with a QRS significantly widened. She also has a history of atrial fibrillation and is on chronic anticoagulation. She was in atrial fibrillation with RVR upon presentation and was given a diltiazem bolus in the emergency room and then, the drip was started at 2.5 mg/hour. She was taken to the cardiac brush clearing laborer by Dr. Salomon on 05/04/2019. She has a prior stent in the proximal LAD, 3 prior stents to the circumflex. She has a CLIFFORD to the LAD and SVG graft to the mid circumflex in the right PDA. She is right-side dominant. She underwent PCI to the proximal circumflex in addition to the first obtuse marginal. Later that day, there was a code blue called when she went into ventricular standstill for up to 10 to 12 seconds, which occurred four times. She was given IV atropine and epinephrine. At that time, she was on Cardizem 2.5 mg/hour and low-dose beta-livan therapy with Toprol-XL 12.5 mg p.o. at bedtime. She did not complain of any chest pain or pressure between her spells or associated symptoms. She underwent emergent temporary pacemaker wire insertion and then, her coronary angiography was redone to reassess her recent stent placement to the circumflex system. Her circumflex artery stent remained patent. She was intubated while in the brush clearing laborer by Anesthesia. Reportedly, it was traumatic intubation with some significant bleeding. She is transferred to the ICU in guarded condition. She remains intubated and sedated on Diprivan. She is oxygenating well on her current ventilator settings. She is not on pressor support at this time. Her is at bedside. Given her ventricular standstill and complete heart block, EP consult was requested for consideration for pacemaker versus pacemaker defibrillator. Ms. Shaw remains intubated and sedated as mentioned. Her is at bedside. She remains in guarded condition, unable to complete review of systems as per the patient condition. REVIEW OF SYSTEMS: Unable to complete due to sedation and intubation. PAST MEDICAL HISTORY: 1. Coronary artery disease with three-vessel bypass and multiple stent placement. 2. Atrial fibrillation on chronic anticoagulation. 3. Chronic systolic heart failure, diastolic heart failure. 4. Right bundle branch block with left anterior fascicular block. 5. Type 2 diabetes. 6. Hyperlipidemia. 7. Status post thyroidectomy. 8. COPD. 9. DVT. 10. Obesity. ALLERGIES: HYDROCODONE AND ADHESIVE TAPE. HOME MEDICATIONS: Include; 1. Nitroglycerin sublingual spray as needed. 2. Bactroban topical b.i.d. 3. Ketoconazole shampoo as directed. 4. Fluticasone daily. 5. Vitamin D3 daily. 6. Phenazopyridine 100 mg p.o. t.i.d. 7. Triamcinolone ointment as directed. 8. Docusate sodium 100 mg p.o. b.i.d. 9. B12 of 2500 mcg on Saturday, Saturday, and Saturday. 10. Calcium 600 mg daily. 11. Magnesium 800 mg daily. 12. Protonix 80 mg daily. 13. Metformin 500 mg p.o. b.i.d. 14. Ticagrelor 90 mg b.i.d. 15. Toprol-XL 12.5 mg daily. 16. Lantus 60 units q.p.m. 17. Klor-Con 10 mEq p.o. daily. 18. Fluocinonide b.i.d. as directed. 19. Levothyroxine 137 mcg as directed. 20. Atorvastatin 20 mg daily. 21. Aspirin 81 mg daily. 22. Humalog as directed. 23. Furosemide 40 mg b.i.d. 24. Clobetasol b.i.d. FAMILY HISTORY: Unable to assess given the patient's condition. is unaware of any family history of sudden cardiac or early-onset CAD. SOCIAL HISTORY: She is with multiple comorbidities. Denies any alcohol , tobacco, or illicit drug use. OBJECTIVE: VITAL SIGNS: Recent vital signs; pulse 100, temperature 98.4, respiration per ventilator FiO2 is 40%, oxygen saturation is 100, PEEP of 7, and blood pressure 120/79. GENERAL: The patient is sedated and intubated, resting in bed, in no apparent distress with slight movements noted. She does respond to voice, but orientation cannot be assessed. RESPIRATIONS: Clear to auscultation bilaterally. HEART: Rate is rapid at 100 to 105 beats per minute. PMI is nonpalpable due to habitus. Occasional pacing seen on telemetry. ABDOMEN: Obese, soft, nontender, and nondistended. EXTREMITIES: Warm and dry to touch without clubbing, cyanosis, or edema. There is a temporary pacemaker via the right femoral vein. DATABASE: Hematology was reviewed, hemoglobin slightly reduced at 10.4 and platelet count is 114. Chemistry was reviewed; potassium 3.8, sodium 134, creatinine 0.93, and magnesium is 1.7. Troponin peaked at 4.9. BNP was 1564 on 05/05. TSH is 0.5786. Echocardiogram on 05/05/2019, ejection fraction severely reduced at 30% to 35%. Hypokinetic motion of the inferolateral wall in the left ventricle. Left atrium is moderately dilated. Moderate MR. Severe . Telemetry and EKG, currently reflect atrial fibrillation with rates at approximately 100 to 110 beats per minute. Occasional atrial activity is seen. There continued to be sudden drops in her heart rate, where the temporary pacemaker kicks in at 60 beats per minute suggestive of intermittent AV block still perisisting of doiltiazem. This is seen repeatedly throughout her bedside telemetry monitoring. IMPRESSION: 1. Paroxysmal third-degree heart block requiring temporary pacer implant with repeat episodes seen on telemetry and no clear etiology. 2. Baseline bifascicular block with right bundle-branch block, now newly found left bundle-branch block. 3. Paroxysmal atrial fibrillation with rapid ventricular response. 4. Recent non-ST elevation myocardial infarction status post restenting in the circumflex. 5. Chronic systolic heart failure with a severely reduced left ventricular ejection fraction of 30% to 35%. 6. Severe aortic stenosis. PLAN AND RECOMMENDATIONS: We discussed the patient's guarded condition and possible treatment options with the patient's at bedside, in addition to Dr. Salomon, over the phone. There is a clear indication for pacemaker with Ms. Shaw given her paroxysmal third-degree heart block. The reason for she is having these ventricular standstill episodes could be progression of her baseline conduction disease +compounded by AV kory vs [place] territory ischemia. Her existing heart failure and severely reduced ejection fraction, which may not improve intermediate teacher she has future risk for ventricular arrhythmia therefor to avoid the infection risk wityh future re- operation I recommend we go forward with a biventricular ICD implant. We discussed the risks associated with Bi-V ICD implant, which are increased with her current condition. She is not on pressor support and she is oxygenating well only on 40% FiO2 and moderate amount PEEP at 7. We will have Anesthesia assist with the case. Given her severe aortic stenosis, Dr. Salomon also is planning to do a right heart catheterization. Hence the and I would likely proceed with a Bi-V ICD implant immediately following his right heart catheterization. The patient's voices understanding and wishes to proceed with ICD implant, understanding the risks, especially in light of his 's guarded condition. Thank you for allowing me to participate in the care of this patient. We will continue to follow. Job ID: [id number] [facility]OSPITALMeagan
[2019-05-06] MEDS ORDERED: PROPOFOL 20 ML ONE (15:10)
[2019-05-06] MEDS ORDERED: Propofol 1,000 MG/100 ML VIAL IV ONE (15:15)
--- NOTE | 2019-05-06 16:46 | PQF ---
RAFA CONTRERAS IRVIN [id number] U-A03 [id number] CLINICAL DOCUMENTATION IMPROVEMENT CLARIFICATION FORM: ICD-10 Updated PLEASE DO AN ADDENDUM TO THE PROGRESS NOTE WITH ANY DOCUMENTATION UPDATES OR ADDITIONS AND CARRY THROUGH TO DC SUMMARY. THANK YOU. DATE: 05/06/19 ATTN: Dr. Messer, Please exercise your independent, professional judgment in responding to the clarification form. Clinical indicators are provided on the bottom of this form for your review Please check appropriate box(s): [ ] Acute respiratory failure due to an existing co-morbid condition: acute pulmonary edema [ ] Acute respiratory failure related to the surgical procedure [ ] Acute respiratory failure due to [ ] Respiratory insufficiency due to an existing co-morbid condition: [ ] Respiratory insufficiency due to the surgical procedure [ ] Other diagnosis [ ] Unable to determine For continuity of documentation, please document condition throughout progress notes and discharge summary. Thank You. CLINICAL INDICATORS - SIGNS / SYMPTOMS / LABS/ RESULTS AND LOCATION IN MR 05/05 No: "ph 7.18; decreased breath sounds, bilateral rhonchi" 05/05 CTA chest: bilateral airspace opacity possibly related to edema, hemorrhage , aspiration and/or pnemonia. Small bilateral pleural effusions. moderate cardiomegaly RISKS FACTORS / RESULTS AND LOCATION IN MR Recent surgery--> 05/05 "TEMPORARY PACEMAKER--DEVELOPED VENTRICULAR STANDSTILL ANGIOGRAPHY OF LEFT SYSTEM AND STENT PATENT CIRCUMFLEX ARTERY" OP note 05/05 [place]: "complete heart block, left BBB, chronic systolic HF with EF 30-35%" TREATMENT / RESULTS AND LOCATION IN MR Oxygen / Monitoring oxygenation status ICU orders 05/05 Intubated on Mechanical ventilation 05/05 orders Pulmonary Consult 05/05 orders (This form is maintained as a part of the permanent medical record) 2014 [employer]. All Rights Reserved Niki Rivero RN, BSN, CCDS [email or web address]
[2019-05-06] MEDS: CEFAZOLIN 2 GM in Premix Bag 1 BAG IVPB SCH (17:07)
--- NOTE | 2019-05-06 17:09 | RAD ---
EXAM: Single view of the chest HISTORY: Pacemaker placement COMPARISON: 05/06/2019 at 4:18 AM FINDINGS: Single view of the chest shows an enlarged but stable cardiomediastinal silhouette. The pa tient is status post sternotomy. A left subclavian pacemaker is seen with its leads in the right atrium, right ventricle, and coronary sinus. No pneumothorax is seen. The endotracheal tube and NG tu be are unchanged in position. There is no evidence of consolidation, mass, or pleural effusion. The bones are unremarkable. IMPRESSION: Status post pacemaker placement without evidence of complication.
[2019-05-06] MEDS: Cephalexin 250 MG CAP PO SCH (17:31)
[2019-05-06] MEDS: traZODone HCl 50 MG TAB PO SCH (21:03)
[2019-05-06] MEDS: Atorvastatin Calcium 40 MG TAB PO SCH (21:03)
[2019-05-07] MEDS: Cephalexin 250 MG CAP PO SCH ×4 (00:16→17:48)
[2019-05-07] MEDS: Cefepime 1 GM in Sodium Chloride 0.9% 100 ML IVPB SCH ×2 (00:16→12:16)
[2019-05-07] MEDS: CEFAZOLIN 2 GM in Premix Bag 1 BAG IVPB SCH ×2 (01:15→08:57)
[2019-05-07] MEDS: HumaLOG 300 UNITS/3 ML VIAL SC PRN ×5 (04:41→21:26)
[2019-05-07] MEDS ORDERED: Levothyroxine Sodium 112 MCG TAB PO SCH (06:45)
[2019-05-07] MEDS ORDERED: Levothyroxine Sodium 25 MCG TAB PO SCH (06:45)
--- NOTE | 2019-05-07 07:04 | EKG ---
Test Reason : Blood Pressure : / mmHG Vent. Rate : 115 BPM Atrial Rate : 115 BPM P-R Int : 132 ms QRS Dur : 168 ms QT Int : 384 ms P-R-T Axes : 000 -72 100 degrees QTc Int : 531 ms Sinus tachycardia well defined p waves questionable tho Left axis deviation Left bundle branch block Abnormal ECG When compared with ECG of 05-MAY-2019 04:33, Vent. rate has increased BY 39 BPM Left bundle branch block has replaced (RBBB and left anterior fascicular block) Criteria for Septal infarct are no longer Present Confirmed by DR. Vashti MIRANDA ([id number]) on 05/07/2019 7:04:26 AM Referred By: AUSTIN Confirmed By:DR. Vashti MIRANDA
[2019-05-07 07:06] LABS: Actual Bicarbonate (HCO3a) 20.2 mEq/L (22-28); CO2 Tension 29.3 mmHg (35.0-45.0); Calcium, Ionized 1.15 mmol/L (1.12-1.30); Carboxyhemoglobin (COHb) 1.4 gm% (0.0-3.0); Hemoglobin (Hb) 8.6 g/dL (12.0-16.0); O2 Tension (PaO2) 150.4 mmHg (> 70.0); Potassium - ABG Lab 3.72 mmol/L (3.70-5.30); pH, Arterial 7.46 (7.35-7.45)
[2019-05-07 07:24] LABS: ALV-art Gradient 98.175 (0-20); Puncture Site RBRACH
--- NOTE | 2019-05-07 07:26 | PDOC.FM ---
- Subjective Subjective: Patient had 7-8beats of Vtach last night. ICD was not triggered to go off and patient came out of it on her own. Otherwise patient has been stable. No other concerns per nursing. Patient is at baseline. Still on the ventilator and responding to questions and moving limbs. She denies any pain. - Objective MAR Reviewed: Yes Vital Signs & Weight: Vital Signs (12 hours) Temp Pulse Resp Pulse Ox 05/07/19 07:21 83 26 H 98 05/07/19 06:00 16 05/07/19 04:00 98.2 F 16 05/07/19 02:33 74 05/07/19 02:00 16 05/07/19 01:00 68 16 95 05/07/19 00:00 97.8 F 16 05/06/19 22:23 77 05/06/19 22:00 16 05/06/19 20:00 97.7 F 16 100 Weight Admit Weight 102.104 kg Weight 103.5 kg Most Recent Monitor Data Heart Rate from ECG 94 NIBP 106/68 NIBP BP-Mean 80 Respiration from ECG 17 SpO2 100 I&O: 05/06/19 05/07/19 05/08/19 06:59 06:59 06:59 Intake Total 847 2431 Output Total 795 1295 Balance 52 1136 Result Diagrams: 05/05/19 04:26 05/06/19 09:15 Phys Exam - Physical Examination Constitutional: NAD HEENT: moist MMs, sclera anicteric Neck: supple Respiratory: clear to auscultation bilateral Cardiovascular: RRR 3/6 systolic murmur at the right sternal border Gastrointestinal: soft, non-tender, no distention, positive bowel sounds Musculoskeletal: no edema, pulses present Neurological: non-focal, normal sensation, moves all 4 limbs follows commands, opens eyes, moves limbs Skin: no rash, normal turgor, cap refill <2 seconds Dx/Plan (1) Atrial fibrillation with rapid ventricular response Code(s): I48.91 - UNSPECIFIED ATRIAL FIBRILLATION Status: Acute (2) Chest pain Code(s): R07.9 - CHEST PAIN, UNSPECIFIED Status: Acute (3) CAD (coronary artery disease) Code(s): I25.10 - ATHSCL HEART DISEASE OF [place] CORONARY ARTERY W/O ANG PCTRS Status: Chronic (4) CHF (congestive heart failure) Code(s): I50.9 - HEART FAILURE, UNSPECIFIED Status: Chronic (5) Hypothyroidism Code(s): E03.9 - HYPOTHYROIDISM, UNSPECIFIED Status: Chronic (6) NSTEMI (non-ST elevated myocardial infarction) Code(s): I21.4 - NON-ST ELEVATION (NSTEMI) MYOCARDIAL INFARCTION Status: Acute (7) NICKI (obstructive sleep apnea) Code(s): G47.33 - OBSTRUCTIVE SLEEP APNEA (ADULT) (PEDIATRIC) Status: Acute (8) Diabetes mellitus Code(s): E11.9 - TYPE 2 DIABETES MELLITUS WITHOUT COMPLICATIONS Status: Chronic (9) HTN (hypertension) Code(s): I10 - ESSENTIAL (PRIMARY) HYPERTENSION Status: Chronic (10) Hyperlipidemia Code(s): E78.5 - HYPERLIPIDEMIA, UNSPECIFIED Status: Chronic (11) Obesity (BMI 30-39.9) Code(s): E66.9 - OBESITY, UNSPECIFIED Status: Chronic - Plan Plan: #NSTEMI - Patient initially presented with 3 day hx of worsening chest pain not relieved with nitro. EKG showed widened QRS, afit w/ RVR. Hx of previous OR with multiple stents. Patient troponins from from 0.039 -> 4.801. Cards was consulted. She was taken back for cath on 05/04 with placement of 2 stents. - on 05/05 Code blue called - patient had asystole for about 10-12 seconds. She was given atropine and epi and taken emergently to the laboratory tech where a transvenous pacer. Stenting of the circumflex remained patent. Patient remained intubated after this procedure and was moved to the ICU. CTA neg for PE. She was placed on a dobutamine drip for a period of time to help with pressure support. Patient was started on cefepime due to traumatic intubation. Added keflex and cefazolin on 05/06 due to placement of ICD. Will refer to pulm for weening patient off vent. - Patient taken to the laboratory tech on 05/06 - EP had been consulted and an ICD was placed. was grade I, no indication for valve replacement at this time. - BNP: 578 -> 1564. Echo on 05/05 showing EF 30-35%, hypokinetic motion of the inferolateral wall noted in the LV, LA mod dilated, mod - sev aortic stenosis. - Nitro PRN for chest pain - Continue home anti-coagulation medication regimen - Cardiology following, appreciate recommendations. Pulm consulted as patient was moved to the ICU, appreciate recommendations. #A-Fib w/ RVR, now rate controlled - Continue home anti-coagulation medication regimen - D/c Diltiazem gtt due to above. Patient now with ICD in place. - Cardiology Consult: Currently being followed by Dr. Salomon #Hx of OR, s/p CABG Hx of 10 drug-eluting stents placed. Last stents (2) placed in July 2018 following heart catheterization at outside hospital. See above. - Strict I/Os - Daily weights #DM2 - Patient had been off of home lantus, will restart as patient's BG has been in the 300s - Glucose checks QACHS - Hypoglycemia Protocol - Last HgA1C was 8.1 on 04/02/2019 - will not reorder during this hospital stay #Hypothyroidism s/p Thyoridectomy - Thyroid previously removed 2/2 malignancy - TSH: 0.579 - Continue home Synthroid regimen #HLD - Previously on Atorvastatin 20 mg daily - Increase Atorvastatin to 40 mg daily - Fasting Lipid Panel: nml #GERD - Continue home Pantoprazole regimen - Encourage proper positioning during meals Code: Full Activity: Ad Sarah DVT PPx: Ticagrelor / ASA 81 Dispo: pending clinical course. Cards/EP/pulm recommendations appreciated. Case discussed with Dr. Messer
--- NOTE | 2019-05-07 08:46 | PRG ---
DATE OF SERVICE: 05/07/2019 SUBJECTIVE: This morning, the patient is more awake, responsive. Her sedation is withheld. Events noted from last night. OBJECTIVE: VITAL SIGNS: Pulse is 83, respiratory rate 26, saturations are 98% , blood pressure 101/56. GENERAL: Otherwise, the patient awake, alert and responsive. CHEST: Decreased breath sounds. No wheezing. CARDIAC: Normal S1 and S2. No gallop. ABDOMEN: Soft. LABORATORY DATA: White count from 05/05/19 was 9000, H&H 10 and 31. lytes pending. X-ray shows chf. IMPRESSION: Respiratory failure, morbid obesity, carotid disease, aortic stenosis, diabetes. We will try and wean and extubate today. Hopefully continue PT and supportive care. One-half hour of critical time. Job ID: [id number] MTDD
[2019-05-07 08:52] LABS: #Basophils 0.1 thou/uL (0.0-0.2); #Lymphocytes 0.2 thou/uL (1.20-3.40); #Monocytes 0.5 thou/uL (0.11-0.59); #Neutrophils 13.1 thou/uL (1.40-6.50); %Basophils 0.7 % (0.0-1.0); %Eosinophils 0.2 % (0.0-10.0); %Lymphocytes 1.5 % (21.0-51.0); %Monocytes 3.3 % (0.0-10.0); %Neutrophils 94.3 % (42.0-75.0); Hemoglobin 8.9 g/dL (12.0-16.0); Mean Corpuscular HGB CONC 32.6 g/dL (32.0-36.0); Mean Corpuscular Hemoglobin 28.3 pg (27.0-31.0); Mean Platelet Volume 7.5 fL (7.4-10.4); Platelet Count 115 thou/uL (130-400); RBC Distribution Width 15.7 % (11.5-14.5); Red Blood Cell (RBC) Count 3.14 mill/uL (4.20-5.40); White Blood Cell (WBC) Count 13.9 thou/uL (4.8-10.8)
[2019-05-07] MEDS: Aspirin Chewable 81 MG TAB PO SCH (08:55)
[2019-05-07] MEDS: Potassium Chloride 10 MEQ TAB PO SCH (08:55)
[2019-05-07] MEDS ORDERED: Insulin Glargine 4 UNITS in Pre-Filled Syringe 1 EACH SC SCH ×2 (09:00→21:00)
--- NOTE | 2019-05-07 09:02 | PRG ---
DATE OF SERVICE: 05/07/2019 SUBJECTIVE: The patient continues to be intubated and sedated. She underwent ICD with biventricular pacing yesterday. She appears to be hemodynamically stable. Her blood pressure and heart rate have been stable overnight. She is not on pressors. OBJECTIVE: VITAL SIGNS: Blood pressure 101/56, pulse 87, temperature afebrile. LUNGS: Clear to auscultation. HEART: Regular rate and rhythm. ABDOMEN: Soft, nontender, and nondistended. EXTREMITIES: No edema. PERTINENT LABORATORY DATA: None today. IMPRESSION: 1. Non-Q-wave myocardial infarction. 2. Sick sinus syndrome. 3. Cardiomyopathy. 4. Aortic stenosis. 5. Respiratory failure. RECOMMENDATIONS: The patient appears to be improving. Aortic valve area by angio yesterday was 1.0. She certainly would need to have some type of intervention as an outpatient, but at this point, I do not feel her aortic stenosis is critical and unlikely contributing to her current situation. Vent management and pulmonary support per Pulmonary. Continue aspirin and atorvastatin in addition to Brilinta. When blood pressure is more stable, recommend low-dose beta-livan therapy. Job ID: [id number]
[2019-05-07 09:09] LABS: Anion Gap 14 mmol/L (10-20); BUN (Urea Nitrogen) 20 mg/dL (9.8-20.1); Calc. Creatinine Clearance 104 mL/min (70-130); Calcium 8.5 mg/dL (7.8-10.44); Carbon Dioxide 18 mmol/L (23-31); Chloride 106 mmol/L (98-107); Estimated GFR-MDRD 71; Glucose 263 mg/dL (83-110); Potassium 3.8 mmol/L (3.5-5.1); Sodium 134 mmol/L (136-145)
[2019-05-07] MEDS: TICAGRELOR 90 MG TABLET PO SCH ×2 (09:19→20:14)
[2019-05-07] MEDS: Betamethasone Val 0.1% OINT 15 GM TUBE TOP SCH ×2 (09:20→20:16)
[2019-05-07] MEDS: Insulin Glargine 60 UNITS in Pre-Filled Syringe 1 EACH SC SCH (09:47)
--- NOTE | 2019-05-07 10:16 | RAD ---
CHEST 1 VIEW: HISTORY: Ventilated patient. COMPARISON: Radiograph of prior day. FINDINGS: Endotracheal tube tip below the level of the clavicles. Enteric tube tip is not well seen as the upp er abdomen is not interrogated. Small effusions. Scattered atelectatic changes. No pneumothorax. Heart size continues to be enlarged. IMPRESSION: Similar examination to the chest. POS: OFF
--- NOTE | 2019-05-07 11:25 | PRG ---
DATE OF SERVICE: 05/07/2019 Ms. Shaw has been extubated and is resting quietly in bed. A decision was not to transfer to [facility] as her has not quite reached the point of criticality. Also, she has had of course other issues during this hospitalization. In the event, she is currently clinically stable and we will continue to follow with the Intensive Care Team as well as a drum attendant. Job ID: [id number]
--- NOTE | 2019-05-07 14:20 | PQF ---
RAFA CONTRERAS IRVIN [id number] U-A03 [id number] CLINICAL DOCUMENTATION IMPROVEMENT CLARIFICATION FORM: ICD-10 Updated PLEASE DO AN ADDENDUM TO THE PROGRESS NOTE WITH ANY DOCUMENTATION UPDATES OR ADDITIONS AND CARRY THROUGH TO DC SUMMARY. THANK YOU. DATE: 05/07/19 ATTN: Dr. Paez, Please exercise your independent, professional judgment in responding to the clarification form. Clinical indicators are provided on the bottom of this form for your review Please check appropriate box(s): [ x ] Acute respiratory failure due to an existing co-morbid condition: non q wave Myocardial infarction [ ] Acute respiratory failure related to the surgical procedure [ ] Acute respiratory failure due to [ ] Respiratory insufficiency due to an existing co-morbid condition: [ ] Respiratory insufficiency due to the surgical procedure [ ] Other diagnosis [ ] Unable to determine For continuity of documentation, please document condition throughout progress notes and discharge summary. Thank You. CLINICAL INDICATORS - SIGNS / SYMPTOMS / LABS/ RESULTS AND LOCATION IN MR 05/05 No: "ph 7.18; decreased breath sounds, bilateral rhonchi" 05/05 CTA chest: bilateral airspace opacity possibly related to edema, hemorrhage , aspiration and/or pnemonia. Small bilateral pleural effusions. moderate cardiomegaly RISKS FACTORS / RESULTS AND LOCATION IN MR Recent surgery--> 05/05 "TEMPORARY PACEMAKER--DEVELOPED VENTRICULAR STANDSTILL ANGIOGRAPHY OF LEFT SYSTEM AND STENT PATENT CIRCUMFLEX ARTERY" OP note 05/05 [place]: "complete heart block, left BBB, chronic systolic HF with EF 30-35%" TREATMENT / RESULTS AND LOCATION IN MR Oxygen / Monitoring oxygenation status ICU orders 05/05 Intubated on Mechanical ventilation 05/05 orders Pulmonary Consult 05/05 orders (This form is maintained as a part of the permanent medical record) 2014 [employer]. All Rights Reserved Niki Rivero RN, BSN, CCDS [email or web address] [phone] MTDD
--- NOTE | 2019-05-07 15:37 | PDOC.CPN ---
- Subjective Date: 05/07/19 Time: 08:00 Interval history: EP PROGRESS NOTE: 05/07/19 Follow up for cardiomyopathy and transient complete heart block s/p BiV ICD implant on 05/06. Now extubated and remains off pressor support. bedside. - Review of Systems General: denies: fever/chills, weight/appetite/sleep changes, night sweats, fatigue Respiratory: denies: cough, congestion, shortness of breath, exercise intolerance Cardiovascular: denies: chest pain, palpitation, edema, paroxysmal nocturnal dyspnea, orthopnea - Objective Allergies/Adverse Reactions: Allergies Allergy/AdvReac Type Severity Reaction Status Date / Time hydrocodone Allergy Nausea Verified 05/04/19 02:54 adhesive tape AdvReac Verified 05/04/19 02:54 Visit Medications: Current Medications Acetaminophen (Tylenol) 650 mg PO Q4H PRN PRN Reason: Headache/Fever/Mild Pain (1-3) Last Admin: 05/05/19 23:36 Dose: 650 mg Al Hydroxide/Mg Hydroxide (Maalox) 30 ml PO Q3H PRN PRN Reason: Indigestion Albuterol/Ipratropium (Duoneb) 3 ml NEB [id number] [facility] Last Admin: 05/07/19 12:45 Dose: 3 ml Aspirin (Aspirin Chewable) 81 mg PO DAILY [facility] Last Admin: 05/07/19 08:55 Dose: 81 mg Atorvastatin Calcium (Lipitor) 40 mg PO HS [facility] Last Admin: 05/06/19 21:03 Dose: 40 mg Betamethasone Valerate (Valisone 0.1% Ointment) 0 gm TOP BID [facility] Last Admin: 05/07/19 09:20 Dose: 2 applic Cephalexin (Keflex) 500 mg PO Q6HR [facility] Stop: 05/13/19 12:01 Last Admin: 05/07/19 12:27 Dose: 500 mg Clobetasol Propionate (Temovate 0.05% Cream) 0 gm TOP BID [facility] Last Admin: 05/07/19 09:21 Dose: 1 applic Dextrose/Water (Dextrose 50%) 25 gm SLOW IVP PRN PRN PRN Reason: Hypoglycemia Fentanyl (Pacu-Sublimaze) 25 mcg SLOW IVP Q30MIN PRN PRN Reason: Pain Glucagon (Glucagon) 1 mg IM PRN PRN PRN Reason: Hypoglycemia Dobutamine HCl/Dextrose 500 mg (/ Device) 250 mls @ 0 mls/hr IVPB INF [facility]; Protocol Cefepime HCl 1 gm/ Sodium (Chloride) 100 mls @ 200 mls/hr IVPB 0000,1200 [facility] Last Admin: 05/07/19 12:16 Dose: 100 mls Dextrose/Water (D5w) 1,000 mls @ 0 mls/hr IV .Q0M PRN PRN Reason: Hypoglycemia Fentanyl Citrate 2,000 mcg/ (Sodium Chloride) 100 mls @ 0 mls/hr IV INF [facility]; Protocol Stop: 06/04/19 11:59 Fentanyl Citrate (Fentanyl Bolus) 250 mls @ 0 mls/hr IVPB PRN PRN PRN Reason: Breakthrough pain/agitation Stop: 06/04/19 11:59 Insulin Glargine 60 units/ (Miscellaneous Medication) 0.6 mls @ 0 mls/hr SC QAM [facility] Last Admin: 05/07/19 09:47 Dose: 0.6 mls Insulin Human Lispro (Humalog) 0 units SC .AGGRESSIVE SLIDING PRN PRN Reason: Aggressive Correctional Scale Last Admin: 05/07/19 12:24 Dose: 9 unit Levothyroxine Sodium (Synthroid) 112 mcg PO MoTuWeThFrSa@0600 [facility] Levothyroxine Sodium (Synthroid) 25 mcg PO MoTuWeThFrSa@0600 [facility] Lorazepam (Ativan) 2 mg SLOW IVP Q1H PRN PRN Reason: Breakthrough agitation Stop: 06/04/19 11:59 Last Admin: 05/06/19 16:40 Dose: 2 mg Morphine Sulfate (Morphine) 2 mg SLOW IVP Q1H PRN PRN Reason: BREAKTHROUGH PAIN/Agitation Stop: 06/04/19 11:59 Last Admin: 05/05/19 17:20 Dose: 2 mg Nitroglycerin (Nitrostat) 0.4 mg SL Q5MIN PRN PRN Reason: Chest Pain Discontinue Previous Narcotic Pain Medications And Benzodiazepines 1 each FS .ONE [facility] Stop: 06/04/19 11:59 Ondansetron HCl (Zofran Odt) 4 mg PO Q6H PRN PRN Reason: Nausea/Vomiting Ondansetron HCl (Zofran) 4 mg IVP Q6H PRN PRN Reason: Nausea/Vomiting Pantoprazole Sodium (Protonix) 40 mg PO DAILY [facility] Last Admin: 05/07/19 08:55 Dose: 40 mg Potassium Chloride (Klor-Con 10) 10 meq PO DAILY [facility] Last Admin: 05/07/19 08:55 Dose: 10 meq Propofol (Diprivan) 1,000 mg IV INF PRN; Protocol PRN Reason: TO ACHIEVE GOAL RASS Stop: 06/04/19 11:59 Last Admin: 05/06/19 22:50 Dose: 1,000 mg Propofol (Diprivan Bolus) 20 mg IV Q5MIN PRN PRN Reason: BREAKTHROUGH AGITATION Stop: 06/04/19 11:59 Sodium Chloride (Flush - Normal Saline) 10 ml IVF Q12HR PRN PRN Reason: Saline Flush Sodium Chloride (Flush - Normal Saline) 10 ml IVF PRN PRN PRN Reason: Saline Flush Ticagrelor (Brilinta) 90 mg PO BID [facility] Last Admin: 05/07/19 09:19 Dose: 90 mg Trazodone HCl (Desyrel) 50 mg PO QPM [facility] Last Admin: 05/06/19 21:03 Dose: 50 mg Vital Signs & Weight: Vital Signs Temp Pulse Pulse Pulse Resp BP BP 05/07/19 12:45 109 H 20 05/07/19 12:00 05/07/19 11:40 114 H 116 H 140/65 109/74 05/07/19 08:00 05/07/19 07:21 83 26 H 05/07/19 06:00 16 05/07/19 04:00 98.2 F 16 Pulse Ox Pulse Ox Pulse Ox 05/07/19 12:45 97 05/07/19 12:00 100 05/07/19 11:40 97 97 05/07/19 08:00 100 05/07/19 07:21 98 05/07/19 06:00 05/07/19 04:00 Admit Weight 225 lb 1.6 oz Weight 228 lb 2.855 oz - Physical Exam General: alert & oriented x3, appears well, no apparent distress HEENT: mucus membranes moist, normocephaly Neck: supple neck, midline trachea, no JVD/HJR, no masses, no bruit, no lymphadenopathy, no thromegaly Cardiac: regular rate and rhythm, no murmur, regular rate, regular rhythm Lungs: clear to auscultation, normal breath sounds, normal exam, no wheeze, rales, rhonchi Neuro: cranial nerve 2-12 intact, grossly intact, coordination normal, no lateralizing findings Abdomen: active bowel sounds, soft, no masses Extremities: no cyanosis, no clubbing, no edema Skin: other (left precordial ICD site C/D/I. No drainage. +swelling and bruising. no hematoma) - Labs Result Diagrams: 05/07/19 08:37 05/07/19 08:37 Troponin/CKMB CK-MB (CK-2) 3.7 ng/mL (0-6.6) 05/06/19 09:15 Troponin I 1.381 ng/mL (< 0.028) H* 05/06/19 09:15 - Telemetry Sinus rhythms and dysrhythmias: sinus rhythm (DESK MONITOR pacing) - Assessment/Plan Assessment/Plan: IMPRESSION: 1. Paroxysmal third-degree heart block requiring temporary pacer implant with repeat episodes seen on telemetry and no clear etiology. 2. Baseline bifascicular block with right bundle-branch block, now newly found left bundle-branch block. 3. Paroxysmal atrial fibrillation with rapid ventricular response. 4. Recent non-ST elevation myocardial infarction status post restenting in the circumflex. 5. Chronic systolic heart failure with a severely reduced left ventricular ejection fraction of 30% to 35%. 6. Severe aortic stenosis. 7. BiV ICD -implanted 05/06/19 -post implant anbx with keflex 500mg PO QID x 7 days - device check normal this AM - CXR stable, no pneumothorax - rhythm stable with PPM support
--- NOTE | 2019-05-07 17:18 | EKG ---
Test Reason : Blood Pressure : / mmHG Vent. Rate : 079 BPM Atrial Rate : 079 BPM P-R Int : 134 ms QRS Dur : 190 ms QT Int : 498 ms P-R-T Axes : 100 104 -85 degrees QTc Int : 571 ms Atrial-sensed ventricular-paced rhythm Biventricular pacemaker detected Abnormal ECG When compared with ECG of 06-MAY-2019 08:10, (Unconfirmed) Electronic ventricular pacemaker has replaced Sinus rhythm Confirmed by DR. Vashti MIRANDA ([id number]) on 05/07/2019 5:17:28 PM Referred By: GAGAN Confirmed By:DR. Vashti MIRANDA
[2019-05-07] MEDS: Levothyroxine Sodium 112 MCG TAB PO SCH (17:19)
[2019-05-07] MEDS: Levothyroxine Sodium 25 MCG TAB PO SCH (17:20)
[2019-05-07] MEDS: Acetaminophen 325 MG TAB PO PRN (20:12)
[2019-05-07] MEDS: Atorvastatin Calcium 40 MG TAB PO SCH (20:12)
[2019-05-07] MEDS: traZODone HCl 50 MG TAB PO SCH (20:13)
[2019-05-07] MEDS ORDERED: HumaLOG 300 UNITS/3 ML VIAL SC SCH (21:00)
[2019-05-07] MEDS ORDERED: Insulin Glargine 40 UNITS in Pre-Filled Syringe 1 EACH SC SCH (21:00)
[2019-05-08] MEDS: Cefepime 1 GM in Sodium Chloride 0.9% 100 ML IVPB SCH (00:16)
[2019-05-08] MEDS: Cephalexin 250 MG CAP PO SCH ×4 (00:17→17:58)
[2019-05-08 05:57] LABS: #Basophils 0.1 thou/uL (0.0-0.2); #Lymphocytes 0.3 thou/uL (1.20-3.40); #Monocytes 0.4 thou/uL (0.11-0.59); #Neutrophils 6.4 thou/uL (1.40-6.50); %Basophils 0.8 % (0.0-1.0); %Eosinophils 0.4 % (0.0-10.0); %Lymphocytes 4.3 % (21.0-51.0); %Monocytes 5.6 % (0.0-10.0); %Neutrophils 88.9 % (42.0-75.0); Hemoglobin 7.9 g/dL (12.0-16.0); Mean Corpuscular HGB CONC 33.4 g/dL (32.0-36.0); Mean Corpuscular Hemoglobin 28.9 pg (27.0-31.0); Mean Corpuscular Volume 86.5 fL (78.0-98.0); Mean Platelet Volume 7.4 fL (7.4-10.4); Platelet Count 89 thou/uL (130-400); RBC Distribution Width 15.9 % (11.5-14.5); Red Blood Cell (RBC) Count 2.74 mill/uL (4.20-5.40); White Blood Cell (WBC) Count 7.2 thou/uL (4.8-10.8)
[2019-05-08] MEDS: Levothyroxine Sodium 25 MCG TAB PO SCH (06:04)
[2019-05-08] MEDS: Levothyroxine Sodium 112 MCG TAB PO SCH (06:04)
[2019-05-08 06:16] LABS: Anion Gap 12 mmol/L (10-20); BUN (Urea Nitrogen) 21 mg/dL (9.8-20.1); Calc. Creatinine Clearance 121 mL/min (70-130); Calcium 8.1 mg/dL (7.8-10.44); Carbon Dioxide 21 mmol/L (23-31); Chloride 109 mmol/L (98-107); Estimated GFR-MDRD 83; Glucose 157 mg/dL (83-110); Potassium 4.2 mmol/L (3.5-5.1); Sodium 138 mmol/L (136-145)
--- NOTE | 2019-05-08 07:29 | PDOC.FM ---
- Subjective Subjective: NAEO. Per patient and at the bedside, patient had a good night. She was able to get some rest. The was concerned about a low BP overnight. She was asymptomatic at the time. No other concerns from nursing. SHe was able to get up on the side of the bed with PT/OT. Taj SOB or chest pain this AM. - Objective MAR Reviewed: Yes Vital Signs & Weight: Vital Signs (12 hours) Temp Pulse Ox 05/08/19 03:44 98.1 F 05/08/19 00:13 96 05/08/19 00:00 98.0 F 05/07/19 23:25 96 05/07/19 20:00 98.5 F 96 Weight Admit Weight 102.104 kg Weight 105.37 kg Most Recent Monitor Data Heart Rate from ECG 82 NIBP 92/56 NIBP BP-Mean 68 Respiration from ECG 22 SpO2 99 I&O: 05/07/19 05/08/19 05/09/19 06:59 06:59 06:59 Intake Total 2431 1500 Output Total 1295 1325 Balance 1136 175 Result Diagrams: 05/08/19 04:54 05/08/19 04:54 Phys Exam - Physical Examination Constitutional: NAD morbidly obese HEENT: moist MMs, sclera anicteric Neck: supple, full ROM Respiratory: no wheezing, no rales, no rhonchi, clear to auscultation bilateral Cardiovascular: RRR 3/6 systolic murmur over aorta Gastrointestinal: soft, non-tender, no distention, positive bowel sounds trace edema b/l Neurological: non-focal, normal sensation, moves all 4 limbs Psychiatric: normal affect, A&O x 3 Skin: no rash, normal turgor, cap refill <2 seconds Deviation from normal: eccchymosis on left upper chest, slight oozing from surgical site Dx/Plan (1) Atrial fibrillation with rapid ventricular response Code(s): I48.91 - UNSPECIFIED ATRIAL FIBRILLATION Status: Acute (2) Chest pain Code(s): R07.9 - CHEST PAIN, UNSPECIFIED Status: Acute (3) CAD (coronary artery disease) Code(s): I25.10 - ATHSCL HEART DISEASE OF [place] CORONARY ARTERY W/O ANG PCTRS Status: Chronic (4) CHF (congestive heart failure) Code(s): I50.9 - HEART FAILURE, UNSPECIFIED Status: Chronic (5) Hypothyroidism Code(s): E03.9 - HYPOTHYROIDISM, UNSPECIFIED Status: Chronic (6) NSTEMI (non-ST elevated myocardial infarction) Code(s): I21.4 - NON-ST ELEVATION (NSTEMI) MYOCARDIAL INFARCTION Status: Acute (7) NICKI (obstructive sleep apnea) Code(s): G47.33 - OBSTRUCTIVE SLEEP APNEA (ADULT) (PEDIATRIC) Status: Acute (8) Diabetes mellitus Code(s): E11.9 - TYPE 2 DIABETES MELLITUS WITHOUT COMPLICATIONS Status: Chronic (9) HTN (hypertension) Code(s): I10 - ESSENTIAL (PRIMARY) HYPERTENSION Status: Chronic (10) Hyperlipidemia Code(s): E78.5 - HYPERLIPIDEMIA, UNSPECIFIED Status: Chronic (11) Obesity (BMI 30-39.9) Code(s): E66.9 - OBESITY, UNSPECIFIED Status: Chronic - Plan Plan: #NSTEMI - Patient initially presented with 3 day hx of worsening chest pain not relieved with nitro. EKG showed widened QRS, afit w/ RVR. Hx of previous [place] with multiple stents. Patient troponins from from 0.039 -> 4.801. Cards was consulted. She was taken back for cath on 05/04 with placement of 2 stents. - on 05/05 Code blue called - patient had asystole for about 10-12 seconds. She was given atropine and epi and taken emergently to the [facility]ry [facility] coreroom where a transvenous pacer. Stenting of the circumflex remained patent. Patient remained intubated after this procedure and was moved to the ICU. CTA neg for PE. She was placed on a dobutamine drip for a period of time to help with pressure support. Patient was started on cefepime due to traumatic intubation. Added keflex and cefazolin on 05/06 due to placement of ICD. Extubated on 05/07. Satting well on NC. - Patient taken to the [facility]ry lab[facility] coreroom on 05/06 - EP had been consulted and an ICD was placed. was grade I, no indication for valve replacement at this time. - BNP: 578 -> 1564. Echo on 05/05 showing EF 30-35%, hypokinetic motion of the inferolateral wall noted in the LV, LA mod dilated, mod - sev aortic stenosis. - Nitro PRN for chest pain - Continue home anti-coagulation medication regimen - Cardiology following, appreciate recommendations. Pulm consulted as patient was moved to the ICU, appreciate recommendations. - PT/OT consulted. Recommend rehab. Cardiac rehab consult placed. CM placed to help with discharge planning. #Paroxysmal third degree heart block - see above #Baseline bifascicular block with RBBB and new LBBB - see above #A-Fib w/ RVR, now rate controlled - Continue home anti-coagulation medication regimen - D/c Diltiazem gtt due to above. Patient now with ICD in place. - Cardiology Consult: Currently being followed by Dr. Salomon #Hx of [place], s/p CABG Hx of 10 drug-eluting stents placed. Last stents (2) placed in July 2018 following heart catheterization at outside hospital. See above. - Strict I/Os - Daily weights #DM2 - Patient restarted on home lantus, sugars have improved. - Glucose checks QACHS - Hypoglycemia Protocol - Last HgA1C was 8.1 on 04/02/2019 - will not reorder during this hospital stay #Hypothyroidism s/p Thyoridectomy - Thyroid previously removed 2/2 malignancy - TSH: 0.579 - Continue home Synthroid regimen #HLD - Previously on Atorvastatin 20 mg daily - Increase Atorvastatin to 40 mg daily - Fasting Lipid Panel: nml #GERD - Continue home Pantoprazole regimen - Encourage proper positioning during meals Code: Full Activity: Ad Sarah DVT PPx: Ticagrelor / ASA 81 Dispo: Cards/EP/pulm recommendations appreciated. Can likely move to Tele today. CM consulted for discharge planning. Case discussed with Dr. Messer
--- NOTE | 2019-05-08 08:09 | RAD ---
PORTABLE CHEST: HISTORY: Respiratory distress. COMPARISON: Prior day's exam. FINDINGS: Endotracheal and NG tubes have been removed. Heart size is enlarged. The lungs are clear of infiltr ates. IMPRESSION: Cardiomegaly. Interval removal of the endotracheal and nasogastric tubes. POS: OFF
--- NOTE | 2019-05-08 08:42 | PRG ---
DATE OF SERVICE: 05/08/2019 SUBJECTIVE: This morning, she is better, more awake, less short of breath, still weak though. OBJECTIVE: VITAL SIGNS: Temperature is 97.4, pulse 73, saturations are 98% on 3 L, blood pressure 91/55. CHEST: Decreased breath sounds. No wheezing. CARDIAC: Normal S1 and S2. No gallops. ABDOMEN: No masses. LABORATORY DATA: Platelet count is 89,000. Other labs are unremarkable. Urine shows gram-negative rods. IMPRESSION: Status post emergency cardiac catheterization, aortic stenosis, respiratory failure, morbid obesity, and urinary tract infection. PLAN: She can be transferred to telemetry. Continue PT and supportive care. We will follow. May switch over to oral antibiotics. Job ID: [id number]
[2019-05-08] MEDS: TICAGRELOR 90 MG TABLET PO SCH ×2 (09:10→20:40)
[2019-05-08] MEDS: Potassium Chloride 10 MEQ TAB PO SCH (09:10)
[2019-05-08] MEDS: Aspirin Chewable 81 MG TAB PO SCH (09:11)
[2019-05-08] MEDS: Insulin Glargine 60 UNITS in Pre-Filled Syringe 1 EACH SC SCH (09:11)
[2019-05-08] MEDS: Betamethasone Val 0.1% OINT 15 GM TUBE TOP SCH ×2 (09:15→20:40)
--- NOTE | 2019-05-08 10:20 | PRG ---
DATE OF SERVICE: 05/08/2019 Ms. Shaw is sitting up in bed and in no distress. She is undergoing physical therapy. She is alert and even cheerful and having no acute problems or issues this morning. She can likely be transferred to the cardiac rehab sometime today and continue her physical therapy. I feel it would be prudent to remove her [place] catheter and allow her to wear an adult diaper. Job ID: [id number]
[2019-05-08] MEDS: HumaLOG 300 UNITS/3 ML VIAL SC PRN ×3 (11:39→20:44)
--- NOTE | 2019-05-08 14:06 | PDOC.CPN ---
- Subjective Date: 05/08/19 Time: 14:05 Interval history: EP PROGRESS NOTE: 05/07/19 Follow up for cardiomyopathy and transient complete heart block s/p BiV ICD implant on 05/06. Transferred to [facility]. Doing better today but she remains tired and fatigued. - Review of Systems General: reports: fatigue. denies: fever/chills, weight/appetite/sleep changes , night sweats Respiratory: denies: cough, congestion, shortness of breath, exercise intolerance Cardiovascular: denies: chest pain, palpitation, edema, paroxysmal nocturnal dyspnea, orthopnea Gastrointestinal: denies: nausea, vomiting, diarrhea, constipation, abd pain, GI bleeding Musculoskeletal: denies: pain, tenderness, stiffness, swelling, arthritis/ arthralgias - Objective Allergies/Adverse Reactions: Allergies Allergy/AdvReac Type Severity Reaction Status Date / Time hydrocodone Allergy Nausea Verified 05/04/19 02:54 adhesive tape AdvReac Verified 05/04/19 02:54 Visit Medications: Current Medications Acetaminophen (Tylenol) 650 mg PO Q4H PRN PRN Reason: Headache/Fever/Mild Pain (1-3) Last Admin: 05/07/19 20:12 Dose: 650 mg Al Hydroxide/Mg Hydroxide (Maalox) 30 ml PO Q3H PRN PRN Reason: Indigestion Albuterol/Ipratropium (Duoneb) 3 ml NEB [id number] [facility] Last Admin: 05/08/19 13:33 Dose: 3 ml Aspirin (Aspirin Chewable) 81 mg PO DAILY [facility] Last Admin: 05/08/19 09:11 Dose: 81 mg Atorvastatin Calcium (Lipitor) 40 mg PO HS [facility] Last Admin: 05/07/19 20:12 Dose: 40 mg Betamethasone Valerate (Valisone 0.1% Ointment) 0 gm TOP BID [facility] Last Admin: 05/08/19 09:15 Dose: 1 applic Cephalexin (Keflex) 500 mg PO Q6HR [facility] Stop: 05/13/19 12:01 Last Admin: 05/08/19 11:38 Dose: 500 mg Clobetasol Propionate (Temovate 0.05% Cream) 0 gm TOP BID [facility] Last Admin: 05/08/19 09:14 Dose: 1 applic Dextrose/Water (Dextrose 50%) 25 gm SLOW IVP PRN PRN PRN Reason: Hypoglycemia Fentanyl (Pacu-Sublimaze) 25 mcg SLOW IVP Q30MIN PRN PRN Reason: Pain Glucagon (Glucagon) 1 mg IM PRN PRN PRN Reason: Hypoglycemia Dobutamine HCl/Dextrose 500 mg (/ Device) 250 mls @ 0 mls/hr IVPB INF [facility]; Protocol Dextrose/Water (D5w) 1,000 mls @ 0 mls/hr IV .Q0M PRN PRN Reason: Hypoglycemia Insulin Glargine 60 units/ (Miscellaneous Medication) 0.6 mls @ 0 mls/hr SC QAM [facility] Last Admin: 05/08/19 09:11 Dose: 0.6 mls Insulin Human Lispro (Humalog) 0 units SC .AGGRESSIVE SLIDING PRN PRN Reason: Aggressive Correctional Scale Last Admin: 05/08/19 11:39 Dose: 9 unit Levothyroxine Sodium (Synthroid) 112 mcg PO MoTuWeThFrSa@0600 [facility] Last Admin: 05/08/19 06:04 Dose: 112 mcg Levothyroxine Sodium (Synthroid) 25 mcg PO MoTuWeThFrSa@0600 [facility] Last Admin: 05/08/19 06:04 Dose: 25 mcg Lorazepam (Ativan) 2 mg SLOW IVP Q1H PRN PRN Reason: Breakthrough agitation Stop: 06/04/19 11:59 Last Admin: 05/06/19 16:40 Dose: 2 mg Nitroglycerin (Nitrostat) 0.4 mg SL Q5MIN PRN PRN Reason: Chest Pain Discontinue Previous Narcotic Pain Medications And Benzodiazepines 1 each FS .ONE [facility] Stop: 06/04/19 11:59 Ondansetron HCl (Zofran Odt) 4 mg PO Q6H PRN PRN Reason: Nausea/Vomiting Ondansetron HCl (Zofran) 4 mg IVP Q6H PRN PRN Reason: Nausea/Vomiting Pantoprazole Sodium (Protonix) 40 mg PO DAILY [facility] Last Admin: 05/08/19 09:10 Dose: 40 mg Potassium Chloride (Klor-Con 10) 10 meq PO DAILY [facility] Last Admin: 05/08/19 09:10 Dose: 10 meq Propofol (Diprivan) 1,000 mg IV INF PRN; Protocol PRN Reason: TO ACHIEVE GOAL RASS Stop: 06/04/19 11:59 Last Admin: 05/06/19 22:50 Dose: 1,000 mg Sodium Chloride (Flush - Normal Saline) 10 ml IVF Q12HR PRN PRN Reason: Saline Flush Sodium Chloride (Flush - Normal Saline) 10 ml IVF PRN PRN PRN Reason: Saline Flush Ticagrelor (Brilinta) 90 mg PO BID [facility] Last Admin: 05/08/19 09:10 Dose: 90 mg Trazodone HCl (Desyrel) 50 mg PO QPM [facility] Last Admin: 05/07/19 20:13 Dose: Not Given Vital Signs & Weight: Vital Signs Temp Pulse Pulse Pulse Resp BP BP 05/08/19 13:33 83 18 05/08/19 11:12 98.2 F 05/08/19 09:06 77 76 105/64 104/62 05/08/19 08:14 05/08/19 08:11 83 17 05/08/19 07:56 05/08/19 07:43 97.4 F L 05/08/19 03:44 98.1 F Pulse Ox Pulse Ox Pulse Ox 05/08/19 13:33 99 05/08/19 11:12 05/08/19 09:06 96 98 05/08/19 08:14 98 05/08/19 08:11 98 05/08/19 07:56 96 05/08/19 07:43 05/08/19 03:44 Admit Weight 225 lb 1.6 oz Weight 232 lb 4.8 oz - Physical Exam General: alert & oriented x3, appears well, no apparent distress HEENT: mucus membranes moist, normocephaly Neck: supple neck, midline trachea, no JVD/HJR Cardiac: regular rate and rhythm, no murmur, regular rate, regular rhythm Lungs: clear to auscultation, normal breath sounds, normal exam Neuro: cranial nerve 2-12 intact, grossly intact, coordination normal, no lateralizing findings Skin: other (ICD incision has scant clear drainage.) - Labs Result Diagrams: 05/08/19 04:54 05/08/19 04:54 Troponin/CKMB CK-MB (CK-2) 3.7 ng/mL (0-6.6) 05/06/19 09:15 Troponin I 1.381 ng/mL (< 0.028) H* 05/06/19 09:15 - Telemetry Sinus rhythms and dysrhythmias: sinus rhythm (INTERACTIVE DEVELOPER pacing) - Assessment/Plan Assessment/Plan: IMPRESSION: 1. Paroxysmal third-degree heart block requiring temporary pacer implant with repeat episodes seen on telemetry and no clear etiology. 2. Baseline bifascicular block with right bundle-branch block, now newly found left bundle-branch block. 3. Paroxysmal atrial fibrillation with rapid ventricular response. 4. Recent non-ST elevation myocardial infarction status post restenting in the circumflex. 5. Chronic systolic heart failure with a severely reduced left ventricular ejection fraction of 30% to 35%. 6. Severe aortic stenosis. 7. BiV ICD -implanted 05/06/19 -post implant anbx with keflex 500mg PO QID x 7 days - device check normal this AM - CXR stable, no pneumothorax - rhythm stable with PPM support PM/ICD functioning normally. No new rhythm issues. Continue Keflex as ordered. 2 week would check will be arranged once discharged. EP signing off.
--- NOTE | 2019-05-08 14:40 | CON ---
DATE OF CONSULTATION: 05/08/2019 SUBJECTIVE: Ms. Shaw is doing well. No current complaints. No chest pain or pressure. She has been extubated. Has moved to the [facility]. OBJECTIVE: VITAL SIGNS: Blood pressure 94/53, pulse 84, respirations 20. LUNGS: Clear to auscultation. HEART: Regular rate and rhythm. ABDOMEN: Soft, nontender, nondistended. EXTREMITIES: No edema. PERTINENT LABORATORY DATA: Hemoglobin 7.9. Creatinine 0.69. IMPRESSION: 1. Non-Q-wave myocardial infarction. 2. Sick sinus syndrome. 3. Ischemic cardiomyopathy. 4. Coronary artery disease. 5. Status post stent placement. 6. Status post bypass surgery. RECOMMENDATIONS: Ms. Shaw's hemoglobin appears to be quite fluctuant. Her initial hemoglobin was 11.5 and decreased to 9.4, increased to 10.4, and now it is 7.9. We will guaiac all stools. We will recheck hemoglobin in a.m. Unsure of cause, if persistent. Ms. Shaw's aortic valve area was also 1.0 and not felt to be critical. This can be worked up as an outpatient. Continue aspirin in addition to Brilinta. At this point, the patient is not on medications to decrease blood pressure. We will continue to monitor closely. Job ID: [id number]
[2019-05-08] MEDS ORDERED: Furosemide 40 MG TAB PO SCH (20:00)
[2019-05-08] MEDS: traZODone HCl 50 MG TAB PO SCH (20:38)
[2019-05-08] MEDS: Atorvastatin Calcium 40 MG TAB PO SCH (20:39)
[2019-05-08] MEDS: Acetaminophen 325 MG TAB PO PRN (21:47)
[2019-05-09] MEDS: Cephalexin 250 MG CAP PO SCH ×5 (00:19→23:55)
[2019-05-09] MEDS: Levothyroxine Sodium 25 MCG TAB PO SCH ×2 (05:07→05:08)
[2019-05-09] MEDS: Levothyroxine Sodium 112 MCG TAB PO SCH (05:08)
[2019-05-09 05:09] LABS: #Eosinphils 0.1 thou/uL (0.0-0.7); #Lymphocytes 0.4 thou/uL (1.20-3.40); #Monocytes 0.3 thou/uL (0.11-0.59); #Neutrophils 4.4 thou/uL (1.40-6.50); %Basophils 0.2 % (0.0-1.0); %Eosinophils 2.2 % (0.0-10.0); %Lymphocytes 8.2 % (21.0-51.0); %Monocytes 6.4 % (0.0-10.0); %Neutrophils 83.1 % (42.0-75.0); Hemoglobin 8.7 g/dL (12.0-16.0); Mean Corpuscular HGB CONC 33.6 g/dL (32.0-36.0); Mean Corpuscular Volume 86.4 fL (78.0-98.0); Mean Platelet Volume 7.2 fL (7.4-10.4); Platelet Count 76 thou/uL (130-400); RBC Distribution Width 15.8 % (11.5-14.5); Red Blood Cell (RBC) Count 3.01 mill/uL (4.20-5.40); White Blood Cell (WBC) Count 5.2 thou/uL (4.8-10.8)
--- NOTE | 2019-05-09 06:08 | PDOC.FM ---
- Subjective Subjective: Pt resting well this morning. Denies CP, SOB. no overnight events on tele floor - Objective MAR Reviewed: Yes Vital Signs & Weight: Vital Signs (12 hours) Temp Pulse Resp BP Pulse Ox 05/09/19 03:49 99.5 F 98 22 H 119/68 98 05/09/19 01:16 91 16 96 05/08/19 20:00 99 05/08/19 19:50 98.6 F 05/08/19 18:32 86 16 95 Weight Admit Weight 102.104 kg Weight 107.456 kg Most Recent Monitor Data Heart Rate from ECG 94 NIBP 111/77 NIBP BP-Mean 88 Respiration from ECG 24 SpO2 98 I&O: 05/07/19 05/08/19 05/09/19 06:59 06:59 06:59 Intake Total 2431 1500 550 Output Total 1295 1325 3725 Balance 1136 283 -6679 Result Diagrams: 05/09/19 04:15 05/08/19 04:54 Phys Exam - Physical Examination Constitutional: NAD HEENT: moist MMs, sclera anicteric Neck: no nodes, no JVD, supple Respiratory: no wheezing, no rales, no rhonchi, clear to auscultation bilateral Cardiovascular: RRR, no rub sys murmur Gastrointestinal: soft, non-tender, no distention, positive bowel sounds Musculoskeletal: no edema (in LE's), pulses present trace B hand pitting edema Neurological: non-focal, normal sensation, moves all 4 limbs Psychiatric: normal affect, A&O x 3 Skin: no rash, normal turgor, cap refill <2 seconds Dx/Plan (1) NSTEMI (non-ST elevated myocardial infarction) Code(s): I21.4 - NON-ST ELEVATION (NSTEMI) MYOCARDIAL INFARCTION Status: Acute (2) Atrial fibrillation with rapid ventricular response Code(s): I48.91 - UNSPECIFIED ATRIAL FIBRILLATION Status: Acute (3) Chest pain Code(s): R07.9 - CHEST PAIN, UNSPECIFIED Status: Acute (4) CAD (coronary artery disease) Code(s): I25.10 - ATHSCL HEART DISEASE OF [place] CORONARY ARTERY W/O ANG PCTRS Status: Chronic (5) Hypothyroidism Code(s): E03.9 - HYPOTHYROIDISM, UNSPECIFIED Status: Chronic (6) Diabetes mellitus Code(s): E11.9 - TYPE 2 DIABETES MELLITUS WITHOUT COMPLICATIONS Status: Chronic (7) HTN (hypertension) Code(s): I10 - ESSENTIAL (PRIMARY) HYPERTENSION Status: Chronic (8) Hyperlipidemia Code(s): E78.5 - HYPERLIPIDEMIA, UNSPECIFIED Status: Chronic (9) Obesity (BMI 30-39.9) Code(s): E66.9 - OBESITY, UNSPECIFIED Status: Chronic - Plan Plan: #NSTEMI - Patient initially presented with 3 day hx of worsening chest pain not relieved with nitro. EKG showed widened QRS, afit w/ RVR. Hx of previous VT with multiple stents. Patient troponins from from 0.039 -> 4.801. Cards was consulted. She was taken back for cath on 05/04 with placement of 2 stents. - on 05/05 Code blue called - patient had asystole for about 10-12 seconds. She was given atropine and epi and taken emergently to the lab assistant where a transvenous pacer. Stenting of the circumflex remained patent. Patient remained intubated after this procedure and was moved to the ICU. CTA neg for PE. She was placed on a dobutamine drip for a period of time to help with pressure support. Patient was started on cefepime due to traumatic intubation. Added keflex and cefazolin on 05/06 due to placement of ICD. Extubated on 05/07. Satting well on [place]. - Patient taken to the lab assistant on 05/06 - EP had been consulted and an ICD was placed. was grade I, no indication for valve replacement at this time. - BNP: 578 -> 1564. Echo on 05/05 showing EF 30-35%, hypokinetic motion of the inferolateral wall noted in the LV, LA mod dilated, mod - sev aortic stenosis. - Nitro PRN for chest pain - Continue home anti-coagulation medication regimen - Cardiology following:ASA + Billinta, watching Hgb lability and guiac stools. FOBT not collected yet. - PT/OT consulted. Recommend rehab. Cardiac rehab consult placed. CM placed to help with discharge planning. #Paroxysmal third degree heart block - see above #Baseline bifascicular block with RBBB and new LBBB - see above #A-Fib w/ RVR, now rate controlled - Continue home anti-coagulation medication regimen - D/c Diltiazem gtt due to above. Patient now with ICD in place. - Cardiology Consult: Currently being followed by Dr. Salomon #Hx of VT, s/p CABG Hx of 10 drug-eluting stents placed. Last stents (2) placed in July 2018 following heart catheterization at outside hospital. See above. - Strict I/Os - Daily weights #DM2 - Patient restarted on home lantus, sugars have improved. - Glucose checks QACHS - Hypoglycemia Protocol - Last HgA1C was 8.1 on 04/02/2019 - will not reorder during this hospital stay #Hypothyroidism s/p Thyroidectomy - Thyroid previously removed / malignancy - TSH: 0.579 - Continue home Synthroid regimen #HLD - Previously on Atorvastatin 20 mg daily - Increase Atorvastatin to 40 mg daily - Fasting Lipid Panel: nml #GERD - Continue home Pantoprazole regimen - Encourage proper positioning during meals Code: Full Activity: Ad Sarah DVT PPx: Ticagrelor / ASA 81 Dispo: Stable, on tele. Cards/EP/pulm recommendations appreciated. CM consulted for discharge planning for cards rehab. Addendum - Attending - Attending Attestation Date/Time: 05/09/19 [id number] I personally evaluated the patient and discussed the management with Dr. Bernardo. I agree with the History, Examination, Assessment and Plan documented above with any addition or exceptions noted below. Patient received lasix overnight and hand swelling improved. Will give additional lasix today. Appreciate cards recs.
[2019-05-09] MEDS: TICAGRELOR 90 MG TABLET PO SCH ×2 (09:31→21:16)
[2019-05-09] MEDS: Aspirin Chewable 81 MG TAB PO SCH (09:31)
[2019-05-09] MEDS: Potassium Chloride 10 MEQ TAB PO SCH (09:31)
[2019-05-09] MEDS: Insulin Glargine 75 UNITS in Pre-Filled Syringe 1 EACH SC SCH (09:32)
[2019-05-09] MEDS: HumaLOG 300 UNITS/3 ML VIAL SC PRN ×3 (09:32→18:03)
[2019-05-09] MEDS: Betamethasone Val 0.1% OINT 15 GM TUBE TOP SCH ×2 (09:36→21:20)
--- NOTE | 2019-05-09 17:38 | PDOC.CPN ---
- Subjective Date: 05/09/19 Time: 17:35 Interval history: Received a dose of lasix yesterday and diuresed really well. She feels a little puffy today. - Review of Systems General: denies: fever/chills, weight/appetite/sleep changes, night sweats, fatigue Respiratory: denies: cough, congestion, shortness of breath, exercise intolerance Cardiovascular: reports: edema. denies: chest pain, palpitation, paroxysmal nocturnal dyspnea, orthopnea Gastrointestinal: denies: nausea, vomiting, diarrhea, constipation, abd pain, GI bleeding Musculoskeletal: denies: pain, tenderness, stiffness, swelling, arthritis/ arthralgias Neurological: denies: numbness, syncope, seizure, weakness - Objective Allergies/Adverse Reactions: Allergies Allergy/AdvReac Type Severity Reaction Status Date / Time hydrocodone Allergy Nausea Verified 05/04/19 02:54 adhesive tape AdvReac Verified 05/04/19 02:54 Visit Medications: Current Medications Acetaminophen (Tylenol) 650 mg PO Q4H PRN PRN Reason: Headache/Fever/Mild Pain (1-3) Last Admin: 05/08/19 21:47 Dose: 650 mg Al Hydroxide/Mg Hydroxide (Maalox) 30 ml PO Q3H PRN PRN Reason: Indigestion Albuterol/Ipratropium (Duoneb) 3 ml NEB [id number] [facility] Last Admin: 05/09/19 13:58 Dose: 3 ml Aspirin (Aspirin Chewable) 81 mg PO DAILY [facility] Last Admin: 05/09/19 09:31 Dose: 81 mg Atorvastatin Calcium (Lipitor) 40 mg PO HS [facility] Last Admin: 05/08/19 20:39 Dose: 40 mg Betamethasone Valerate (Valisone 0.1% Ointment) 0 gm TOP BID [facility] Last Admin: 05/09/19 09:36 Dose: Not Given Cephalexin (Keflex) 500 mg PO Q6HR [facility] Stop: 05/13/19 12:01 Last Admin: 05/09/19 12:25 Dose: 500 mg Clobetasol Propionate (Temovate 0.05% Cream) 0 gm TOP BID [facility] Last Admin: 05/09/19 09:36 Dose: Not Given Dextrose/Water (Dextrose 50%) 25 gm SLOW IVP PRN PRN PRN Reason: Hypoglycemia Fentanyl (Pacu-Sublimaze) 25 mcg SLOW IVP Q30MIN PRN PRN Reason: Pain Furosemide (Lasix) 40 mg SLOW IVP DAILY [facility] Glucagon (Glucagon) 1 mg IM PRN PRN PRN Reason: Hypoglycemia Dobutamine HCl/Dextrose 500 mg (/ Device) 250 mls @ 0 mls/hr IVPB INF [facility]; Protocol Dextrose/Water (D5w) 1,000 mls @ 0 mls/hr IV .Q0M PRN PRN Reason: Hypoglycemia Insulin Glargine 75 units/ (Miscellaneous Medication) 0.75 mls @ 0 mls/hr SC QAM [facility] Last Admin: 05/09/19 09:32 Dose: 0.75 mls Insulin Human Lispro (Humalog) 0 units SC .AGGRESSIVE SLIDING PRN PRN Reason: Aggressive Correctional Scale Last Admin: 05/09/19 12:26 Dose: 6 unit Levothyroxine Sodium (Synthroid) 112 mcg PO MoTuWeThFrSa@0600 [facility] Last Admin: 05/09/19 05:08 Dose: 112 mcg Levothyroxine Sodium (Synthroid) 25 mcg PO MoTuWeThFrSa@0600 [facility] Last Admin: 05/09/19 05:08 Dose: 25 mcg Lorazepam (Ativan) 2 mg SLOW IVP Q1H PRN PRN Reason: Breakthrough agitation Stop: 06/04/19 11:59 Last Admin: 05/06/19 16:40 Dose: 2 mg Nitroglycerin (Nitrostat) 0.4 mg SL Q5MIN PRN PRN Reason: Chest Pain Discontinue Previous Narcotic Pain Medications And Benzodiazepines 1 each FS .ONE [facility] Stop: 06/04/19 11:59 Ondansetron HCl (Zofran Odt) 4 mg PO Q6H PRN PRN Reason: Nausea/Vomiting Ondansetron HCl (Zofran) 4 mg IVP Q6H PRN PRN Reason: Nausea/Vomiting Pantoprazole Sodium (Protonix) 40 mg PO DAILY [facility] Last Admin: 05/09/19 09:31 Dose: 40 mg Potassium Chloride (Klor-Con 10) 10 meq PO DAILY [facility] Last Admin: 05/09/19 09:31 Dose: 10 meq Propofol (Diprivan) 1,000 mg IV INF PRN; Protocol PRN Reason: TO ACHIEVE GOAL RASS Stop: 06/04/19 11:59 Last Admin: 05/06/19 22:50 Dose: 1,000 mg Sodium Chloride (Flush - Normal Saline) 10 ml IVF Q12HR PRN PRN Reason: Saline Flush Sodium Chloride (Flush - Normal Saline) 10 ml IVF PRN PRN PRN Reason: Saline Flush Ticagrelor (Brilinta) 90 mg PO BID [facility] Last Admin: 05/09/19 09:31 Dose: 90 mg Trazodone HCl (Desyrel) 50 mg PO QPM [facility] Last Admin: 05/08/19 20:38 Dose: Not Given Vital Signs & Weight: Vital Signs Temp Pulse Pulse Pulse Pulse Resp BP 05/09/19 13:58 85 16 05/09/19 11:44 98.9 F 87 16 05/09/19 09:12 98 95 97 104/55 L 05/09/19 08:00 05/09/19 07:30 99.1 F 87 18 BP BP BP Pulse Ox 05/09/19 13:58 97 05/09/19 11:44 93/53 L 93 L 05/09/19 09:12 106/59 L 114/63 05/09/19 08:00 94 L 05/09/19 07:30 98/57 L 94 L Admit Weight 225 lb 1.6 oz Weight 236 lb 14.4 oz - Physical Exam General: alert & oriented x3 HEENT: mucus membranes moist Neck: supple neck Cardiac: regular rate and rhythm, systolic murmur Lungs: clear to auscultation Neuro: grossly intact Abdomen: active bowel sounds, soft, non-tender Extremities: 1+ LE edema Skin: clear Musculoskeletal: no pain - Labs Result Diagrams: 05/09/19 04:15 05/08/19 04:54 Troponin/CKMB CK-MB (CK-2) 3.7 ng/mL (0-6.6) 05/06/19 09:15 Troponin I 1.381 ng/mL (< 0.028) H* 05/06/19 09:15 - Telemetry Sinus rhythms and dysrhythmias: other (V paced.) - Assessment/Plan Assessment/Plan: 1. Paroxysmal 3rd degree AV block s/p BiV AICD 2. LBBB 3. Recent NSTEMi with stenting to LCx 4. Ischemic CM EF at 30-35% 5. Severe 6. Paroxysmal afib 7. Acute on chronic systolic heart failure. PLAN: - Will restart IV lasix one dose in AM tomorrow, will switch to PO after that if she remains closer to euvolemia. - Continue other meds.
--- NOTE | 2019-05-09 19:41 | PRG ---
DATE OF SERVICE: 05/09/2019 SERVICE: Pulmonary Medicine. INTERVAL HISTORY: The patient is doing outstanding from respiratory standpoint. She is on room air currently. She denies any current chest discomfort, nausea, or vomiting. Her appetite is back. She has no complaints of fevers, chills, or any overnight events. PHYSICAL EXAMINATION: VITAL SIGNS: Afebrile, pulse 87, blood pressure 93/53, respirations 16, saturation 97% on room air. GENERAL: The patient is awake and alert, in no apparent distress. LUNGS: Decent air entry. There are some crackles present dependently. No prolonged expiratory phase or wheezing is appreciated. HEART: Normal rate. Regular. ABDOMEN: Soft, nontender, nondistended. Bowel sounds are positive. MUSCULOSKELETAL: No cyanosis or clubbing. There is no pitting in the bilateral lower extremities. NEUROLOGIC: Grossly nonfocal. LABORATORY DATA: WBC 5.2, hemoglobin 8.7, platelets 76,000 and gently downtrending. Prior basic metabolic profile is essentially unremarkable. Red blood cells and white blood cells are present in the urine. Gram-negative aamir is growing in the urine. IMAGING: Chest x-ray demonstrates interval removal of the endotracheal tube. Cardiac silhouette is quite enlarged. AICD/pacemaker is in place. She has a right-sided pleural effusion. There is a left-sided pleural effusion, likely layering. Cephalization is still present, Jude B lines, and interstitial fullness are present. ASSESSMENT: 1. Acute hypoxic respiratory failure, resolved. 2. Paroxysmal atrial fibrillation. 3. Third-degree heart block, status post pacemaker. 4. Acute on chronic systolic heart failure. 5. [id number] myocardial infarction. DISCUSSION AND PLAN: We will need to continue to diurese the patient down to euvolemia. Pulmonary/Critical Care will continue to follow, intermittently during this hospital stay. If she gets into respiratory distress, please give me a call over the weekend. Otherwise, Dr. No will resume coverage on Saturday. Job ID: [id number] [facility] HOSPITALMeagan
[2019-05-09] MEDS: Atorvastatin Calcium 40 MG TAB PO SCH (21:15)
[2019-05-09] MEDS: traZODone HCl 50 MG TAB PO SCH (21:15)
[2019-05-10] MEDS: Cephalexin 250 MG CAP PO SCH ×4 (05:59→23:13)
--- NOTE | 2019-05-10 07:15 | PDOC.FM ---
- Subjective Subjective: No acute overnight events on tele. BP's 90's/50-60's Pt prefers cardiac rehab at discharge, as she is very weak feeling. Denies any overnight CP, SOB, cough. - Objective MAR Reviewed: Yes Vital Signs & Weight: Vital Signs (12 hours) Temp Pulse Resp BP Pulse Ox 05/10/19 06:52 98 14 97 05/10/19 03:53 99 F 74 18 92/51 L 94 L 05/10/19 00:01 93 12 05/09/19 23:52 99.7 F H 89 16 97/53 L 92 L 05/09/19 21:31 98.1 F 87 20 109/69 98 05/09/19 19:40 90 12 Weight Admit Weight 102.104 kg Weight 106.594 kg Most Recent Monitor Data Heart Rate from ECG 94 NIBP 111/77 NIBP BP-Mean 88 Respiration from ECG 24 SpO2 98 I&O: 05/09/19 05/10/19 05/11/19 06:59 06:59 06:59 Intake Total 550 720 Output Total 3725 1150 Balance -3175 -430 Result Diagrams: 05/09/19 04:15 05/10/19 08:27 Phys Exam - Physical Examination Constitutional: NAD HEENT: moist MMs, sclera anicteric Neck: no nodes, no JVD, supple, full ROM Respiratory: no wheezing, no rales, no rhonchi, clear to auscultation bilateral Cardiovascular: RRR, no rub systolic murmur 2/6 Gastrointestinal: soft, non-tender, no distention, positive bowel sounds Musculoskeletal: no edema, pulses present no edema in hands, improvement from yesterday. Neurological: non-focal, normal sensation, moves all 4 limbs Psychiatric: normal affect, A&O x 3 Skin: no rash, normal turgor, cap refill <2 seconds Dx/Plan (1) NSTEMI (non-ST elevated myocardial infarction) Code(s): I21.4 - NON-ST ELEVATION (NSTEMI) MYOCARDIAL INFARCTION Status: Acute (2) Atrial fibrillation with rapid ventricular response Code(s): I48.91 - UNSPECIFIED ATRIAL FIBRILLATION Status: Acute (3) Chest pain Code(s): R07.9 - CHEST PAIN, UNSPECIFIED Status: Acute (4) CAD (coronary artery disease) Code(s): I25.10 - ATHSCL HEART DISEASE OF [place] CORONARY ARTERY W/O ANG PCTRS Status: Chronic (5) Hypothyroidism Code(s): E03.9 - HYPOTHYROIDISM, UNSPECIFIED Status: Chronic (6) Diabetes mellitus Code(s): E11.9 - TYPE 2 DIABETES MELLITUS WITHOUT COMPLICATIONS Status: Chronic (7) HTN (hypertension) Code(s): I10 - ESSENTIAL (PRIMARY) HYPERTENSION Status: Chronic (8) Hyperlipidemia Code(s): E78.5 - HYPERLIPIDEMIA, UNSPECIFIED Status: Chronic (9) Obesity (BMI 30-39.9) Code(s): E66.9 - OBESITY, UNSPECIFIED Status: Chronic (10) UTI (urinary tract infection) Status: Acute - Plan Plan: #NSTEMI - Patient initially presented with 3 day hx of worsening chest pain not relieved with nitro. EKG showed widened QRS, afit w/ RVR. Hx of previous MA with multiple stents. Patient troponins from from 0.039 -> 4.801. Cards was consulted. She was taken back for cath on 05/04 with placement of 2 stents. - on 05/05 Code blue called - patient had asystole for about 10-12 seconds. She was given atropine and epi and taken emergently to the laborer construction or leak gang where a transvenous pacer. Stenting of the circumflex remained patent. Patient remained intubated after this procedure and was moved to the ICU. CTA neg for PE. She was placed on a dobutamine drip for a period of time to help with pressure support. Patient was started on cefepime due to traumatic intubation. Added keflex and cefazolin on 05/06 due to placement of ICD. Extubated on 05/07. Satting well on [place]. - Patient taken to the laborer construction or leak gang on 05/06 - EP had been consulted and an ICD was placed. was grade I, no indication for valve replacement at this time. - BNP: 578 -> 1564. Echo on 05/05 showing EF 30-35%, hypokinetic motion of the inferolateral wall noted in the LV, LA mod dilated, mod - sev aortic stenosis. - Nitro PRN for chest pain - Continue home anti-coagulation medication regimen - Cardiology following:ASA + Billinta, watching Hgb lability and guiac stools. FOBT not collected yet. - PT/OT consulted. Recommend rehab. Cardiac rehab consult placed. CM placed to help with discharge planning. #Paroxysmal third degree heart block - see above #Baseline bifascicular block with RBBB and new LBBB - see above #A-Fib w/ RVR, now rate controlled - Continue home anti-coagulation medication regimen - D/c Diltiazem gtt due to above. Patient now with ICD in place. - Cardiology Consult: Currently being followed by Dr. Salomon #Hx of MA, s/p CABG Hx of 10 drug-eluting stents placed. Last stents (2) placed in July 2018 following heart catheterization at outside hospital. See above. - Strict I/Os - Daily weights #DM2 - Patient restarted on home lantus, sugars have improved. - Glucose checks QACHS - Hypoglycemia Protocol - Last HgA1C was 8.1 on 04/02/2019 - will not reorder during this hospital stay #Hypothyroidism s/p Thyroidectomy - Thyroid previously removed 2/2 malignancy - TSH: 0.579 - Continue home Synthroid regimen #HLD - Previously on Atorvastatin 20 mg daily - Increase Atorvastatin to 40 mg daily - Fasting Lipid Panel: nml #GERD - Continue home Pantoprazole regimen - Encourage proper positioning during meals # UTI - Gram neg rods on culture, likely e. coli - Continue Keflex PO - temp in 's Code: Full Activity: Ad Sarah DVT PPx: Ticagrelor / ASA 81 Dispo: Stable, on tele. Cards/EP/pulm recommendations appreciated. CM consulted for discharge planning for cards rehab. Addendum - Attending - Attending Attestation Date/Time: 05/10/19 0604 I personally evaluated the patient and discussed the management with Dr. Bernardo. I agree with the History, Examination, Assessment and Plan documented above with any addition or exceptions noted below. The patient is doing well. She will get lasix today and can swap to po after final IV dose. Will place rehab screen. Pt notes she is very weak. Otherwise she is doing well.
[2019-05-10] MEDS: Aspirin Chewable 81 MG TAB PO SCH (08:57)
[2019-05-10] MEDS: Potassium Chloride 10 MEQ TAB PO SCH (08:57)
[2019-05-10] MEDS: Insulin Glargine 75 UNITS in Pre-Filled Syringe 1 EACH SC SCH (08:58)
[2019-05-10] MEDS: TICAGRELOR 90 MG TABLET PO SCH ×2 (08:58→21:36)
[2019-05-10] MEDS: Betamethasone Val 0.1% OINT 15 GM TUBE TOP SCH ×2 (08:58→22:58)
[2019-05-10] MEDS ORDERED: Furosemide 40 MG/4 ML VIAL SLOW IVP SCH (09:00)
[2019-05-10 09:12] LABS: Anion Gap 12 mmol/L (10-20); BUN (Urea Nitrogen) 14 mg/dL (9.8-20.1); Calc. Creatinine Clearance 134 mL/min (70-130); Calcium 7.7 mg/dL (7.8-10.44); Carbon Dioxide 24 mmol/L (23-31); Chloride 105 mmol/L (98-107); Estimated GFR-MDRD Greater than 90; Glucose 207 mg/dL (83-110); Potassium 3.9 mmol/L (3.5-5.1); Sodium 137 mmol/L (136-145)
[2019-05-10] MEDS: Acetaminophen 325 MG TAB PO PRN ×2 (11:03→21:35)
[2019-05-10] MEDS: HumaLOG 300 UNITS/3 ML VIAL SC PRN ×2 (11:03→17:49)
--- NOTE | 2019-05-10 18:15 | PDOC.CPN ---
- Subjective Date: 05/10/19 Time: 18:13 Interval history: She has diuresed really well. She is close to her euvolemia. - Review of Systems General: denies: fever/chills, weight/appetite/sleep changes, night sweats, fatigue Respiratory: denies: cough, congestion, shortness of breath, exercise intolerance Cardiovascular: denies: chest pain, palpitation, edema, paroxysmal nocturnal dyspnea, orthopnea Gastrointestinal: denies: nausea, vomiting, diarrhea, constipation, abd pain, GI bleeding Musculoskeletal: denies: pain, tenderness, stiffness, swelling, arthritis/ arthralgias Neurological: denies: numbness, syncope, seizure, weakness - Objective Allergies/Adverse Reactions: Allergies Allergy/AdvReac Type Severity Reaction Status Date / Time hydrocodone Allergy Nausea Verified 05/04/19 02:54 adhesive tape AdvReac Verified 05/04/19 02:54 Visit Medications: Current Medications Acetaminophen (Tylenol) 650 mg PO Q4H PRN PRN Reason: Headache/Fever/Mild Pain (1-3) Last Admin: 05/10/19 11:03 Dose: 650 mg Al Hydroxide/Mg Hydroxide (Maalox) 30 ml PO Q3H PRN PRN Reason: Indigestion Albuterol/Ipratropium (Duoneb) 3 ml NEB [id number] [facility] Last Admin: 05/10/19 13:14 Dose: 3 ml Aspirin (Aspirin Chewable) 81 mg PO DAILY [facility] Last Admin: 05/10/19 08:57 Dose: 81 mg Atorvastatin Calcium (Lipitor) 40 mg PO HS [facility] Last Admin: 05/09/19 21:15 Dose: 40 mg Betamethasone Valerate (Valisone 0.1% Ointment) 0 gm TOP BID [facility] Last Admin: 05/10/19 08:58 Dose: Not Given Cephalexin (Keflex) 500 mg PO Q6HR [facility] Stop: 05/13/19 12:01 Last Admin: 05/10/19 17:49 Dose: 500 mg Clobetasol Propionate (Temovate 0.05% Cream) 0 gm TOP BID [facility] Last Admin: 05/10/19 08:58 Dose: Not Given Dextrose/Water (Dextrose 50%) 25 gm SLOW IVP PRN PRN PRN Reason: Hypoglycemia Fentanyl (Pacu-Sublimaze) 25 mcg SLOW IVP Q30MIN PRN PRN Reason: Pain Furosemide (Lasix) 40 mg SLOW IVP DAILY [facility] Last Admin: 05/10/19 09:16 Dose: 40 mg Glucagon (Glucagon) 1 mg IM PRN PRN PRN Reason: Hypoglycemia Dobutamine HCl/Dextrose 500 mg (/ Device) 250 mls @ 0 mls/hr IVPB INF [facility]; Protocol Dextrose/Water (D5w) 1,000 mls @ 0 mls/hr IV .Q0M PRN PRN Reason: Hypoglycemia Insulin Glargine 75 units/ (Miscellaneous Medication) 0.75 mls @ 0 mls/hr SC QAM [facility] Last Admin: 05/10/19 08:58 Dose: 0.75 mls Insulin Human Lispro (Humalog) 0 units SC .AGGRESSIVE SLIDING PRN PRN Reason: Aggressive Correctional Scale Last Admin: 05/10/19 17:49 Dose: 6 unit Levothyroxine Sodium (Synthroid) 112 mcg PO MoTuWeThFrSa@0600 [facility] Last Admin: 05/09/19 05:08 Dose: 112 mcg Levothyroxine Sodium (Synthroid) 25 mcg PO MoTuWeThFrSa@0600 [facility] Last Admin: 05/09/19 05:08 Dose: 25 mcg Lorazepam (Ativan) 2 mg SLOW IVP Q1H PRN PRN Reason: Breakthrough agitation Stop: 06/04/19 11:59 Last Admin: 05/06/19 16:40 Dose: 2 mg Nitroglycerin (Nitrostat) 0.4 mg SL Q5MIN PRN PRN Reason: Chest Pain Discontinue Previous Narcotic Pain Medications And Benzodiazepines 1 each FS .ONE [facility] Stop: 06/04/19 11:59 Ondansetron HCl (Zofran Odt) 4 mg PO Q6H PRN PRN Reason: Nausea/Vomiting Ondansetron HCl (Zofran) 4 mg IVP Q6H PRN PRN Reason: Nausea/Vomiting Pantoprazole Sodium (Protonix) 40 mg PO DAILY [facility] Last Admin: 05/10/19 08:57 Dose: 40 mg Potassium Chloride (Klor-Con 10) 10 meq PO DAILY [facility] Last Admin: 05/10/19 08:57 Dose: 10 meq Propofol (Diprivan) 1,000 mg IV INF PRN; Protocol PRN Reason: TO ACHIEVE GOAL [facility] Stop: 06/04/19 11:59 Last Admin: 05/06/19 22:50 Dose: 1,000 mg Sodium Chloride (Flush - Normal Saline) 10 ml IVF Q12HR PRN PRN Reason: Saline Flush Sodium Chloride (Flush - Normal Saline) 10 ml IVF PRN PRN PRN Reason: Saline Flush Ticagrelor (Brilinta) 90 mg PO BID [facility] Last Admin: 05/10/19 08:58 Dose: 90 mg Trazodone HCl (Desyrel) 50 mg PO QPM [facility] Last Admin: 05/09/19 21:15 Dose: Not Given Vital Signs & Weight: Vital Signs Temp Pulse Resp BP Pulse Ox 05/10/19 16:12 98.6 F 90 16 93/51 L 95 05/10/19 13:14 89 16 96 05/10/19 12:41 97.7 F 101 H 16 95/52 L 96 05/10/19 08:00 99.4 F 101 H 18 99/57 L 97 05/10/19 06:52 98 14 97 Admit Weight 225 lb 1.6 oz Weight 235 lb - Physical Exam General: alert & oriented x3 HEENT: mucus membranes moist Neck: supple neck, midline trachea Cardiac: regular rate and rhythm, systolic murmur Lungs: clear to auscultation Neuro: grossly intact Abdomen: active bowel sounds, soft, non-tender Extremities: no edema Skin: clear Musculoskeletal: no pain - Labs Result Diagrams: 05/09/19 04:15 05/10/19 08:27 Troponin/CKMB CK-MB (CK-2) 3.7 ng/mL (0-6.6) 05/06/19 09:15 Troponin I 1.381 ng/mL (< 0.028) H* 05/06/19 09:15 - Telemetry Sinus rhythms and dysrhythmias: sinus rhythm - Assessment/Plan Assessment/Plan: 1. Paroxysmal 3rd degree AV block s/p BiV AICD 2. LBBB 3. Recent NSTEMI with stenting to LCx 4. Ischemic CM EF at 30-35% 5. Severe 6. Paroxysmal afib 7. Acute on chronic systolic heart failure. PLAN: - Will switch to PO daily lasix. - Continue other meds. - Dr. Salomon will follow in AM.
[2019-05-10] MEDS: Atorvastatin Calcium 40 MG TAB PO SCH (21:35)
[2019-05-10] MEDS: traZODone HCl 50 MG TAB PO SCH (22:59)
[2019-05-11] MEDS: Cephalexin 250 MG CAP PO SCH ×3 (05:54→17:46)
[2019-05-11] MEDS: Levothyroxine Sodium 112 MCG TAB PO SCH (05:54)
--- NOTE | 2019-05-11 06:28 | PDOC.FM ---
- Subjective Subjective: Mrs. Shaw was resting comfortably in her hospital bed at the time of evaluation. She denied any acute overnight events and stated that she was feeling stronger than at her previous evaluation. - Objective Vital Signs & Weight: Vital Signs (12 hours) Temp Pulse Resp BP Pulse Ox 05/11/19 04:02 99.3 F 86 18 94/54 L 94 L 05/10/19 23:55 87 12 05/10/19 21:32 98.5 F 87 20 116/71 95 05/10/19 19:19 12 Weight Admit Weight 102.104 kg Weight 106.186 kg Most Recent Monitor Data Heart Rate from ECG 94 NIBP 111/77 NIBP BP-Mean 88 Respiration from ECG 24 SpO2 98 I&O: 05/09/19 05/10/19 05/11/19 06:59 06:59 06:59 Intake Total 522 374 8967 Output Total 3725 1150 1999 Balance -3175 -430 -920 Result Diagrams: 05/09/19 04:15 05/10/19 08:27 Phys Exam - Physical Examination Constitutional: NAD HEENT: PERRLA, moist MMs, sclera anicteric, oral pharynx no lesions Neck: supple, full ROM Respiratory: no wheezing, no rales, no rhonchi, clear to auscultation bilateral Cardiovascular: RRR, no rub 3/6 sytolic murmur Gastrointestinal: soft, non-tender, no distention, positive bowel sounds Musculoskeletal: no edema, pulses present +2 at Radial Arteries Neurological: non-focal, moves all 4 limbs Psychiatric: normal affect, A&O x 3 Dx/Plan - Plan Plan: #NSTEMI -Initially presented w/ 3 day Hx of worsening chest pain not relieved with Nitro - extensive cardiac Hx w/ multiple stent placements -EKG in ED widened QRS, A-Fib w/ RVR. -Trops: 0.039 > 4.801 - Cardiology consulted immediately -Cath perfermormed on 05/04 w/ 2 additional stents placed -Code Blue called on 05/05 - Asystole for 10-12 seconds, treated w/ Atropine and Epinephrine - emergently taken to [facility] for Transvenous Pacer -Echo (05/05): EF 30-35%, w/ hypokinetic Inferior Wall motion in LV. LA moderately dilated. Severe . -Patient remained intubated after Transvenous Pacer placement and was transferred to ICU on Dobutamine gtt. Placed on Cefepime due to traumatic intubation w/ Ceflex and Cefazolin added on 05/06 due to ICD placement -Extubated on 05/07 -BNP: 578 > 1564 - fluid diuresis initiated w/ Furosemide -Nitro PRN for CP -Continue home anti-coagulation regimen -Cardiology Consult: Currently following, recommended ASA and Billinta, watching Hgb lability and guiac+ stools - FOBT not collected yet -PT/OT: Consulted - recommend Cardiac Rehab - currently awaiting placement -Case Management: Consulted, currently following and assisting w/ placement 2. Paroxysmal third degree heart block -See #1 3. Baseline bifascicular block with RBBB and new LBBB -See #1 4. A-Fib w/ RVR, Rate Controlled -Continue home anti-coagulation regimen -Diltiazem gtt DC'd due to #1 -Patient now with ICD in place -Cardiology Consult: Currently being followed by Dr. Salomon 5. Hx of ID, s/p CABG -Hx of 10 drug-eluting stents placed, w/ last stents (2) placed in July 2018 following heart catheterization -Strict I/Os -Daily Weights 6. DM2 -Blood Glucose: 196 on 05/11 -Patient restarted on home Lantus regimen -Glucose checks QACHS -Hypoglycemia Protocol -Last HgA1C was 8.1 on 04/02/2019 - will not reorder during this hospital stay 7. Hypothyroidism s/p Thyroidectomy -Thyroid previously removed 2/2 malignancy -TSH: 0.579 -Continue home Synthroid regimen 8. HLD - Previously on Atorvastatin 20 mg daily - Increase Atorvastatin to 40 mg daily - Fasting Lipid Panel: WNL 9. GERD -Continue home Pantoprazole regimen -Encourage proper positioning during meals 10. UTI -Gram neg rods on culture, likely e. coli -Continue Keflex PO Code: Full Diet: Heart Healthy / Carbohydrate Conscious Activity: Ad Sarah DVT PPx: Ticagrelor / ASA 81 Dispo: Stable, on Telemetry Floor. Cardiology/EP/Pulmonology consulted and currently following. Case Management consulted and assisting w/ Cardiac Rehab placement. Expected LOS <48H. Addendum - Attending - Attending Attestation Date/Time: 05/11/19 1224 I personally evaluated the patient and discussed the management with Dr. Lynch. I agree with the History, Examination, Assessment and Plan documented above with any addition or exceptions noted below. Pt continues to improve. She is requesting to change her lasix from 40 mg once a day to 20 mg twice a day. Waiting on inpt rehab screen.
[2019-05-11] MEDS: Furosemide 40 MG TAB PO SCH (08:40)
[2019-05-11] MEDS: Potassium Chloride 10 MEQ TAB PO SCH (08:40)
[2019-05-11] MEDS: Aspirin Chewable 81 MG TAB PO SCH (08:40)
[2019-05-11] MEDS: TICAGRELOR 90 MG TABLET PO SCH ×2 (08:41→21:34)
[2019-05-11] MEDS: Insulin Glargine 75 UNITS in Pre-Filled Syringe 1 EACH SC SCH (08:41)
[2019-05-11] MEDS: Betamethasone Val 0.1% OINT 15 GM TUBE TOP SCH ×2 (08:41→21:29)
[2019-05-11] MEDS: HumaLOG 300 UNITS/3 ML VIAL SC PRN (08:42)
--- NOTE | 2019-05-11 10:39 | PRG ---
DATE OF SERVICE: 05/11/2019 SUBJECTIVE: Ivet Shaw is a 73-year-old female. This morning, she is doing better, less short of breath, less cough, less wheezing. OBJECTIVE: VITAL SIGNS: Sats 94% on room air, temperature 98, pulse 98, and blood pressure 120\74_. CHEST: No wheezing or crackles. CARDIAC: Normal S1 and S2. No gallops. ABDOMEN: No masses. IMPRESSION: Status post respiratory failure, probably congestive heart failure, aortic stenosis, diabetes, previous coronary artery bypass graft, emergency stent. DISPOSITION: Rehab, eventually [place] for a valve. Job ID: [id number] MTDD
[2019-05-11] MEDS ORDERED: Dextrose 50% Abboject 50 ML SYRINGE SLOW IVP PRN (10:41)
[2019-05-11] MEDS ORDERED: Dextrose 5% in Water 1,000 ML IV PRN (10:41)
[2019-05-11] MEDS: HumaLOG 300 UNITS/3 ML VIAL SC SCH ×2 (12:47→17:47)
--- NOTE | 2019-05-11 13:50 | PRG ---
DATE OF SERVICE: SUBJECTIVE: Ms. Shaw is doing much better today. No chest pain, pressure noted. Her blood pressure remains marginally low. She states that it has ranged between upper 80s to low one 100s while at home and current blood pressure is within normal limits. OBJECTIVE: GENERAL: Patient is a pleasant female who is in no acute distress. The patient appears their stated age. VITAL SIGNS: Blood pressure 107/88, pulse 98, respirations 20. NEUROLOGIC: The patient is alert and oriented x3 with no focal neurologic deficits. HEENT: Sclerae without icterus. Mouth has moist mucous membranes with normal pallor. NECK: No JVD. Carotid upstroke brisk. No bruits bilaterally. LUNGS: Clear to auscultation with unlabored respirations. BACK: No scoliosis or kyphosis. CARDIAC: Regular rate and rhythm with normal S1 and S2. No S3 or S4 noted. No significant rubs, murmurs, thrills, or gallops noted throughout the precordium. PMI is not displaced. There is no parasternal heave. ABDOMEN: Soft, nontender, nondistended. No peritoneal signs present. No hepatosplenomegaly. No abnormal striae. EXTREMITIES: 2+ femoral and 2+ dorsalis pedis pulses. No cyanosis, clubbing, or edema. SKIN: No gross abnormalities. PERTINENT LABORATORY DATA: Hemoglobin 8.7, creatinine 0.67. IMPRESSION: 1. Non-Q wave myocardial infarction. 2. Sick sinus syndrome. 3. Ischemic cardiomyopathy. 4. Anemia. RECOMMENDATION: Ms. Shaw appears to be doing very well. She appears to have stabilized. No current complaints. At this point, I would continue with the followin. Aspirin 81 q.a.m. 2. Atorvastatin 40 at bedtime. 3. Lasix 20 mg p.o. q.a.m. 4. Brilinta 90 mg p.o. b.i.d. 5. We will hold off on ZACHARY inhibitor therapy or lisinopril due to hypotension. The patient would like to speak to social insurance adviser for placement. Otherwise, from my standpoint, I have no further recommendations. Please re-consult if needed. Job ID: [id number]
[2019-05-11] MEDS: traZODone HCl 50 MG TAB PO SCH (21:30)
[2019-05-11] MEDS: Atorvastatin Calcium 40 MG TAB PO SCH (21:34)
[2019-05-11] MEDS: Acetaminophen 325 MG TAB PO PRN (21:40)
[2019-05-12] MEDS: Cephalexin 250 MG CAP PO SCH ×5 (00:21→23:41)
[2019-05-12] MEDS: Levothyroxine Sodium 25 MCG TAB PO SCH (06:07)
[2019-05-12] MEDS: Levothyroxine Sodium 112 MCG TAB PO SCH (06:07)
--- NOTE | 2019-05-12 06:48 | PDOC.FM ---
- Subjective Subjective: Mrs. Shaw was resting comfortably and finishing her breakfast with her at bedside at the time of evaluation. She denied any acute overnight events such as chest pain, shortness of breath, headaches or visual disturbances. - Objective Vital Signs & Weight: Vital Signs (12 hours) Temp Pulse Resp BP BP Pulse Ox 05/12/19 04:00 98.3 F 86 20 105/55 L 98 05/11/19 23:52 84 16 98 05/11/19 21:35 98.9 F 88 20 135/73 98 Weight Admit Weight 102.104 kg Weight 102.512 kg Most Recent Monitor Data Heart Rate from ECG 94 NIBP 111/77 NIBP BP-Mean 88 Respiration from ECG 24 SpO2 98 I&O: 05/10/19 05/11/19 05/12/19 06:59 06:59 06:59 Intake Total 720 1080 1720 Output Total 1150 2000 2400 Balance -430 -920 -680 Result Diagrams: 05/09/19 04:15 05/10/19 08:27 Phys Exam - Physical Examination Constitutional: NAD HEENT: PERRLA, moist MMs, sclera anicteric, oral pharynx no lesions Neck: no JVD, supple, full ROM Respiratory: no wheezing, no rales, no rhonchi, clear to auscultation bilateral Cardiovascular: RRR, no rub 3/6 systolic murmur Gastrointestinal: soft, non-tender, no distention Musculoskeletal: no edema, pulses present +2 pulses at Radial Arteries Neurological: non-focal, moves all 4 limbs Lymphatic: no nodes Psychiatric: normal affect Deviation from normal: Scattered ecchymoses 2/2 recent ICD placement and anticoagulation Dx/Plan - Plan Plan: # Non-Q Wave [place] -Initially presented w/ 3 day Hx of worsening chest pain not relieved with Nitro - extensive cardiac Hx w/ multiple stent placements -EKG in ED widened QRS, A-Fib w/ RVR -Trops: 0.039 > 4.801 - Cardiology consulted immediately -Cath perfermormed on 05/04 w/ 2 additional stents placed -Marla Louis called on 05/05 - Asystole for 10-12 seconds, treated w/ Atropine and Epinephrine - emergently taken to [facility] for Transvenous Pacer -Echo (05/05): EF 30-35%, w/ hypokinetic Inferior Wall motion in LV. LA moderately dilated. Severe . -Patient remained intubated after Transvenous Pacer placement and was transferred to ICU on Dobutamine gtt. Placed on Cefepime due to traumatic intubation w/ Ceflex and Cefazolin added on 05/06 due to ICD placement -Extubated on 05/07 -BNP: 578 > 1564 - fluid diuresis initiated w/ Furosemide -Nitro PRN for CP -Continue home anti-coagulation regimen -Cardiology Consult: Currently following, recommended ASA and Billinta, watching Hgb lability and guiac+ stools - FOBT not collected yet -PT/OT: Consulted - recommend in-patient rehab - currently awaiting placement -Case Management: Consulted, currently following and assisting w/ placement # Paroxysmal third degree heart block -See #1 # Baseline bifascicular block with RBBB and new LBBB -See #1 # A-Fib w/ RVR, Rate Controlled -Continue home anti-coagulation regimen -Patient now with ICD in place -Cardiology Consult: Currently being followed by Dr. Salomon # Hx of [place], s/p CABG -Hx of 10 drug-eluting stents placed, w/ last stents (2) placed in July 2018 following heart catheterization -Strict I/Os -Daily Weights # DM2 -Blood Glucose: 162 on 05/12 -Patient restarted on home Lantus regimen - 75U QAM -Aggressive SSI -Humalog 15U AC -Glucose checks Q4H -Hypoglycemia Protocol -Last HgA1C was 8.1 on 04/02/2019 - will not reorder during this hospital stay # Hypothyroidism s/p Thyroidectomy -Thyroid previously removed 2/2 malignancy -TSH: 0.579 -Continue home Synthroid regimen # HLD - Previously on Atorvastatin 20 mg daily - Increase Atorvastatin to 40 mg daily - Fasting Lipid Panel: WNL # GERD -Continue home Pantoprazole regimen -Encourage proper positioning during meals # UTI -Gram neg rods on culture, likely e. coli -Continue Keflex 500 mg PO Q6H - discontinue on 05/13 Code: Full Diet: Heart Healthy / Carbohydrate Conscious Activity: Ad Sarah DVT PPx: Ticagrelor / ASA 81 Dispo: Stable, on Telemetry Floor. Cardiology/EP/Pulmonology consulted and currently following. Case Management consulted and assisting w/ in-patient rehab placement. Expected LOS <24H. Addendum - Attending - Attending Attestation Date/Time: 05/12/19 104 I personally evaluated the patient and discussed the management with Dr. Lynch. I agree with the History, Examination, Assessment and Plan documented above with any addition or exceptions noted below. Patient states she continues to feel better. She had a little trouble sleeping overnight. We are waiting for inpt rehab eval and acceptance.
--- NOTE | 2019-05-12 10:23 | PRG ---
DATE OF SERVICE: 05/12/2019 SUBJECTIVE: A 73-year-old patient is doing better, less short of breath. OBJECTIVE: VITAL SIGNS: Temperature 98, pulse 95, respirations 18, saturations 95% on room air, and blood pressure 93/53. CHEST: No wheezing or crackles. CARDIAC: Normal S1, S2. No gallops. ABDOMEN: No masses. LABORATORY DATA: Glucose 162. IMPRESSION: Respiratory failure, traumatic intubation, aortic stenosis, carotid disease and myocardial infarction. Pulmonary evans, she is going to be going to rehabilitation. Eventually, aortic valve surgery in [place]. Continue neb treatments and supportive care. We will follow. Job ID: [id number]
[2019-05-12] MEDS: Insulin Glargine 75 UNITS in Pre-Filled Syringe 1 EACH SC SCH (10:33)
[2019-05-12] MEDS: HumaLOG 300 UNITS/3 ML VIAL SC SCH ×3 (10:35→18:17)
[2019-05-12] MEDS: Betamethasone Val 0.1% OINT 15 GM TUBE TOP SCH ×2 (10:37→21:13)
[2019-05-12] MEDS: TICAGRELOR 90 MG TABLET PO SCH ×2 (10:37→20:56)
[2019-05-12] MEDS: Furosemide 40 MG TAB PO SCH (10:37)
[2019-05-12] MEDS: Potassium Chloride 10 MEQ TAB PO SCH (10:37)
[2019-05-12] MEDS: Aspirin Chewable 81 MG TAB PO SCH (10:37)
[2019-05-12] MEDS: Atorvastatin Calcium 40 MG TAB PO SCH (20:56)
[2019-05-12] MEDS: traZODone HCl 50 MG TAB PO SCH (21:13)
[2019-05-12] MEDS: Guaifenesin DM 100-10/5 ML UDCUP PO PRN (23:42)
[2019-05-13] MEDS: Levothyroxine Sodium 25 MCG TAB PO SCH (05:44)
[2019-05-13] MEDS: Levothyroxine Sodium 112 MCG TAB PO SCH (05:44)
[2019-05-13] MEDS: Cephalexin 250 MG CAP PO SCH ×2 (05:44→14:16)
--- NOTE | 2019-05-13 08:20 | PDOC.FM ---
- Subjective Subjective: Mrs. Shaw was finishing her breakfast with her at bedside at the time of evaluation. She denied any acute overnight events, and seemed positive with her recent increase in mobility as documented by the Walking Program. - Objective Vital Signs & Weight: Vital Signs (12 hours) Temp Pulse Resp BP BP Pulse Ox 05/13/19 08:00 97.6 F 84 20 103/58 L 99 05/13/19 07:57 95 05/13/19 07:56 88 20 96 05/13/19 03:56 97.8 F 78 18 97/55 L 92 L 05/12/19 23:57 99.4 F 88 20 90/52 L 99 05/12/19 20:51 98.7 F 87 20 88/50 L 98 Weight Admit Weight 102.104 kg Weight 102.194 kg Most Recent Monitor Data Heart Rate from ECG 94 NIBP 111/77 NIBP BP-Mean 88 Respiration from ECG 24 SpO2 98 I&O: 05/12/19 05/13/19 05/14/19 06:59 06:59 06:59 Intake Total 1720 480 Output Total 2400 500 Balance -680 -20 Result Diagrams: 05/09/19 04:15 05/10/19 08:27 Phys Exam - Physical Examination Constitutional: NAD HEENT: PERRLA, moist MMs, sclera anicteric, oral pharynx no lesions Neck: no JVD, supple, full ROM Respiratory: no wheezing, no rales, no rhonchi, clear to auscultation bilateral Cardiovascular: RRR, no significant murmur, no rub Gastrointestinal: soft, non-tender, no distention, positive bowel sounds Musculoskeletal: no edema, pulses present +2 pulses at Radial Arteries Neurological: non-focal, moves all 4 limbs Psychiatric: normal affect, A&O x 3 Deviation from normal: Multiple ecchymoses 2/2 ICD placement Dx/Plan - Plan Plan: # Non-Q Wave [place], currently stable for DC -Initially presented w/ 3 day Hx of worsening chest pain not relieved with Nitro - extensive cardiac Hx w/ multiple stent placements -EKG in ED widened QRS, A-Fib w/ RVR -Trops: 0.039 > 4.801 - Cardiology consulted immediately -Cath perfermormed on 05/04 w/ 2 additional stents placed -Code Blue called on 05/05 - Asystole for 10-12 seconds, treated w/ Atropine and Epinephrine - emergently taken to [facility] for Transvenous Pacer -Echo (05/05): EF 30-35%, w/ hypokinetic Inferior Wall motion in LV. LA moderately dilated. Severe . -Patient remained intubated after Transvenous Pacer placement and was transferred to ICU on Dobutamine gtt. Placed on Cefepime due to traumatic intubation w/ Ceflex and Cefazolin added on 05/06 due to ICD placement -Extubated on 05/07 -BNP: 578 > 1564 - fluid diuresis initiated w/ Furosemide -Nitro PRN for CP -Continue home anti-coagulation regimen -Cardiology Consult: Currently following, recommended ASA and Billinta, watching Hgb lability and guiac+ stools - FOBT not collected yet -PT/OT: Consulted - recommend in-patient rehab - currently awaiting placement -Case Management: Consulted, currently following and assisting w/ placement # Paroxysmal 3rd Degree Heart Block -See #1 # Baseline Bifasicular Block with RBBB and new LBBB -See #1 # A-Fib w/ RVR, Rate Controlled -Continue home anti-coagulation regimen -Patient now with ICD in place -Cardiology Consult: Currently being followed by Dr. Salomon # Hx of [place], s/p CABG -Hx of 10 drug-eluting stents placed, w/ last stents (2) placed in July 2018 following heart catheterization -Strict I/Os -Daily Weights # DM2 -Blood Glucose: 162 on 05/12 -Patient restarted on home Lantus regimen - 75U QAM -Aggressive SSI -Humalog 15U AC -Accuchecks Q4H -Hypoglycemia Protocol -Last HgA1C was 8.1 on 04/02/2019 - will not reorder during this hospital stay # Hypothyroidism s/p Thyroidectomy -Thyroid previously removed 2/2 malignancy -TSH: 0.579 -Continue home Synthroid regimen # HLD - Previously on Atorvastatin 20 mg daily - Increase Atorvastatin to 40 mg daily - Fasting Lipid Panel: WNL # GERD -Continue home Pantoprazole regimen -Encourage proper positioning during meals # UTI -Gram Negative Rods, likely E. coli -UCx: Pending -Continue Keflex 500 mg PO Q6H Code: Full Diet: Heart Healthy / Carbohydrate Conscious Activity: Ad Sarah DVT PPx: Ticagrelor / ASA 81 Dispo: Stable, on Telemetry Floor. Cardiology/EP/Pulmonology consulted and currently following. Case Management consulted and assisting w/ in-patient rehab placement. Expected LOS <24H. Addendum - Attending - Attending Attestation Date/Time: 05/13/19 5246 I personally evaluated the patient and discussed the management with Dr. Lynch. I agree with the History, Examination, Assessment and Plan documented above with any addition or exceptions noted below. Pt's sugars are better controlled. Discussed med regimen with pt. Still waiting on inpt rehab screen.
--- NOTE | 2019-05-13 09:15 | PRG ---
DATE OF SERVICE: 05/13/2019 SUBJECTIVE: She still got a slight cough this morning, but not much wheezing. Less short of breath. She is scheduled to go to the rehab. OBJECTIVE: VITAL SIGNS: Saturations are 98% on room air, respiratory rate 20, temperature 97, pulse 84, and blood pressure 103/58. CHEST: Occasional wheeze. CARDIAC: Normal S1, S2. No gallops. ABDOMEN: No masses. ASSESSMENT: Bronchitis, reactive airways disease, congestive heart failure, cardiac cath and aortic stenosis. PLAN: Pulmonary evans, I have added low-dose Dulera to her present treatment for the cough for reactive airways disease, eventually placement. We will follow. Job ID: [id number]
[2019-05-13] MEDS: Furosemide 40 MG TAB PO SCH ×2 (10:11→10:22)
[2019-05-13] MEDS: Aspirin Chewable 81 MG TAB PO SCH (10:11)
[2019-05-13] MEDS: TICAGRELOR 90 MG TABLET PO SCH ×2 (10:11→21:04)
[2019-05-13] MEDS: Potassium Chloride 10 MEQ TAB PO SCH (10:11)
[2019-05-13] MEDS: Betamethasone Val 0.1% OINT 15 GM TUBE TOP SCH ×2 (10:14→21:03)
[2019-05-13] MEDS: HumaLOG 300 UNITS/3 ML VIAL SC SCH ×3 (10:24→18:50)
[2019-05-13] MEDS: Insulin Glargine 75 UNITS in Pre-Filled Syringe 1 EACH SC SCH (10:26)
[2019-05-13 12:53] VITALS: BMI 33.3
[2019-05-13] MEDS: Furosemide 20 MG TAB PO SCH (14:16)
[2019-05-13] MEDS: Mometasone/Formoterol 120 PUFF INHALER INH SCH (18:48)
[2019-05-13] MEDS: Atorvastatin Calcium 40 MG TAB PO SCH (21:02)
[2019-05-13] MEDS: Guaifenesin DM 100-10/5 ML UDCUP PO PRN (21:04)
[2019-05-13] MEDS: Acetaminophen 325 MG TAB PO PRN (21:04)
[2019-05-13] MEDS: traZODone HCl 50 MG TAB PO SCH (21:10)
--- NOTE | 2019-05-14 05:20 | PDOC.FM ---
- Subjective Subjective: Mrs. Shaw was resting comfortably with her at bedside at the time of evaluation. She denied any acute overnight events such as chest pain and shortness of breath, but did endorse concern over her currently blood glucose control and constipation. Per Telemetry Floor staff, she did not demonstrate any irregularities on her monitor. - Objective Vital Signs & Weight: Vital Signs (12 hours) Temp Pulse Resp BP BP Pulse Ox 05/14/19 04:00 99.4 F 76 18 90/54 L 95 05/13/19 20:00 98.6 F 86 16 100/56 L 92 L Weight Admit Weight 102.104 kg Weight 102.194 kg Most Recent Monitor Data Heart Rate from ECG 94 NIBP 111/77 NIBP BP-Mean 88 Respiration from ECG 24 SpO2 98 I&O: 05/12/19 05/13/19 05/14/19 06:59 06:59 06:59 Intake Total 1720 480 Output Total 2400 500 2325 [facility]308 -50 -2401 Result Diagrams: 05/09/19 04:15 05/14/19 09:59 Phys Exam - Physical Examination Constitutional: NAD HEENT: PERRLA, moist MMs, sclera anicteric, oral pharynx no lesions Neck: supple, full ROM Respiratory: no wheezing, no rales, no rhonchi, clear to auscultation bilateral Cardiovascular: RRR, no significant murmur, no rub Stable wound s/p pacer placement - no erythema or drainage Gastrointestinal: soft, non-tender, no distention, positive bowel sounds Musculoskeletal: no edema, pulses present Neurological: non-focal, moves all 4 limbs Psychiatric: normal affect, A&O x 3 Deviation from normal: Multiple ecchymoses Dx/Plan - Plan Plan: # Non-Q Wave CT, currently stable for DC -Initially presented w/ 3 day Hx of worsening chest pain not relieved with Nitro - extensive cardiac Hx w/ multiple stent placements -EKG in ED widened QRS, A-Fib w/ RVR -Trops: 0.039 > 4.801 - Cardiology consulted immediately -Cath perfermormed on 05/04 w/ 2 additional stents placed -Code Blue called on 05/05 - Asystole for 10-12 seconds, treated w/ Atropine and Epinephrine - emergently taken to [facility] for Transvenous Pacer -Echo (05/05): EF 30-35%, w/ hypokinetic Inferior Wall motion in LV. LA moderately dilated. Severe . -Patient remained intubated after Transvenous Pacer placement and was transferred to ICU on Dobutamine gtt. Placed on Cefepime due to traumatic intubation w/ Ceflex and Cefazolin added on 05/06 due to ICD placement -Extubated on 05/07 -BNP: 578 > 1564 - fluid diuresis initiated w/ Furosemide -Nitro PRN for CP -Continue home anti-coagulation regimen -Cardiology Consult: Currently following, recommended ASA and Billinta, watching Hgb lability and guiac+ stools - FOBT not collected yet -PT/OT: Consulted - recommend in-patient rehab - currently awaiting placement -Case Management: Consulted, currently following and assisting w/ placement # Paroxysmal 3rd Degree Heart Block -See #1 # Baseline Bifasicular Block with RBBB and new LBBB -See #1 # A-Fib w/ RVR, Rate Controlled -Continue home anti-coagulation regimen -Patient now with ICD in place -Cardiology Consult: Currently being followed by Dr. Salomon # Hx of CT, s/p CABG -Hx of 10 drug-eluting stents placed, w/ last stents (2) placed in July 2018 following heart catheterization -Strict I/Os -Daily Weights # DM2 -Blood Glucose: 130 on 05/14 -Lantus regimen - 75U QAM -Aggressive SSI -Humalog 15U AC -Accuchecks Q4H -Hypoglycemia Protocol -Last HgA1C was 8.1 on 04/02/2019 - will not reorder during this hospital stay # Hypothyroidism s/p Thyroidectomy -Thyroid previously removed 2/2 malignancy -TSH: 0.579 -Continue home Synthroid regimen # HLD -Previously on Atorvastatin 20 mg daily -Increase Atorvastatin to 40 mg daily -Fasting Lipid Panel: WNL # GERD -Continue home Pantoprazole regimen -Encourage proper positioning during meals # UTI -Gram Negative Rods, likely E. coli -UCx: Pending -Continue Keflex 500 mg PO Q6H Code: Full Diet: Heart Healthy / Carbohydrate Conscious Activity: Ad Sarah DVT PPx: Ticagrelor / ASA 81 Dispo: Stable, on Telemetry Floor. Cardiology/EP/Pulmonology consulted and currently following. Case Management consulted and assisting w/ in-patient rehab placement. Expected LOS <24H. Addendum - Attending - Attending Attestation Date/Time: 05/14/19 7977 I personally evaluated the patient and discussed the management with Dr. Lynch. I agree with the History, Examination, Assessment and Plan documented above with any addition or exceptions noted below. The patient's blood sugar is much better controlled. Waiting on insurance acceptance for inpt rehab.
[2019-05-14] MEDS: Levothyroxine Sodium 25 MCG TAB PO SCH (05:28)
[2019-05-14] MEDS: Levothyroxine Sodium 112 MCG TAB PO SCH (05:28)
[2019-05-14] MEDS: Mometasone/Formoterol 120 PUFF INHALER INH SCH ×2 (06:53→18:50)
[2019-05-14] MEDS: Furosemide 20 MG TAB PO SCH ×2 (07:40→12:30)
[2019-05-14] MEDS: TICAGRELOR 90 MG TABLET PO SCH ×2 (08:55→20:33)
[2019-05-14] MEDS: Polyethylene Glycol 3350 17 GM Packet PO SCH (08:55)
[2019-05-14] MEDS: Aspirin Chewable 81 MG TAB PO SCH (08:55)
--- NOTE | 2019-05-14 08:55 | PRG ---
DATE OF SERVICE: 05/14/2019 SUBJECTIVE: This morning, she is much better, less cough, less shortness of breath. She is hopefully going to go to the rehab locally. OBJECTIVE: VITAL SIGNS: Sats are 94% on room air, temperature is 99.4, pulse 79, respirations 16, blood pressure 90/54. CHEST: No wheezing or crackles. CARDIAC: Normal S1, S2. No gallops. ABDOMEN: No masses. IMPRESSION: Congestive heart failure, coronary artery disease, aortic stenosis, cough, reactive airway disease, respiratory failure. Disposition as per Cardiology. Pulmonary will follow while in the hospital. Job ID: [id number]
[2019-05-14] MEDS: Potassium Chloride 10 MEQ TAB PO SCH (08:56)
[2019-05-14] MEDS: HumaLOG 300 UNITS/3 ML VIAL SC SCH ×3 (08:56→16:51)
[2019-05-14] MEDS: Insulin Glargine 75 UNITS in Pre-Filled Syringe 1 EACH SC SCH (08:57)
[2019-05-14] MEDS: Betamethasone Val 0.1% OINT 15 GM TUBE TOP SCH ×2 (08:59→20:32)
[2019-05-14 10:38] LABS: Anion Gap 14 mmol/L (10-20); BUN (Urea Nitrogen) 11 mg/dL (9.8-20.1); Calc. Creatinine Clearance 108 mL/min (70-130); Carbon Dioxide 25 mmol/L (23-31); Chloride 98 mmol/L (98-107); Estimated GFR-MDRD 77; Glucose 209 mg/dL (83-110); Potassium 3.7 mmol/L (3.5-5.1); Sodium 133 mmol/L (136-145)
[2019-05-14] MEDS: Acetaminophen 325 MG TAB PO PRN ×2 (12:30→22:26)
[2019-05-14] MEDS: HumaLOG 300 UNITS/3 ML VIAL SC PRN (12:35)
[2019-05-14] MEDS: Atorvastatin Calcium 40 MG TAB PO SCH (20:31)
[2019-05-14] MEDS: traZODone HCl 50 MG TAB PO SCH (20:33)
[2019-05-15] MEDS: Levothyroxine Sodium 25 MCG TAB PO SCH (05:16)
[2019-05-15] MEDS: Levothyroxine Sodium 112 MCG TAB PO SCH (05:16)
[2019-05-15] MEDS: Mometasone/Formoterol 120 PUFF INHALER INH SCH ×2 (06:44→18:31)
--- NOTE | 2019-05-15 07:44 | PDOC.FM ---
- Subjective Subjective: Mrs. Shaw was resting comfortably with her at bedside at the time of evaluation. She denied any acute overnight events such as headaches, chest pain , shortness of breath, ABD pain or N/V/D. She states that she feels stronger and is having less and less difficulty with ambulation. - Objective Vital Signs & Weight: Vital Signs (12 hours) Temp Pulse Resp BP BP Pulse Ox 05/15/19 06:46 100 05/15/19 06:44 71 16 100 05/15/19 05:02 99 05/15/19 04:00 98 F 74 20 115/57 L 95 05/14/19 20:26 98.7 F 85 20 100/54 L 95 Weight Admit Weight 102.104 kg Weight 101.65 kg Most Recent Monitor Data Heart Rate from ECG 94 NIBP 111/77 NIBP BP-Mean 88 Respiration from ECG 24 SpO2 98 I&O: 05/14/19 05/15/19 05/16/19 06:59 06:59 06:59 Intake Total 480 Output Total 3625 Balance -3145 Result Diagrams: 05/09/19 04:15 05/14/19 09:59 Phys Exam - Physical Examination Constitutional: NAD HEENT: PERRLA, moist MMs, sclera anicteric, oral pharynx no lesions Neck: supple, full ROM Respiratory: no wheezing, no rales, no rhonchi, clear to auscultation bilateral Cardiovascular: RRR, no rub 3/6 systolic murmur Gastrointestinal: soft, non-tender, no distention, positive bowel sounds Musculoskeletal: no edema, pulses present +2 pulses at Radial and Doralis Pedis Arteries Neurological: non-focal, moves all 4 limbs Psychiatric: normal affect, A&O x 3 Deviation from normal: Multiple ecchymoses noted Dx/Plan - Plan Plan: # Non-Q Wave TX, currently stable for DC -Initially presented w/ 3 day Hx of worsening chest pain not relieved with Nitro - extensive cardiac Hx w/ multiple stent placements -EKG in ED widened QRS, A-Fib w/ RVR -Trops: 0.039 > 4.801 - Cardiology consulted immediately -Cath perfermormed on 05/04 w/ 2 additional stents placed -Code Blue called on 05/05 - Asystole for 10-12 seconds, treated w/ Atropine and Epinephrine - emergently taken to [facility] for Transvenous Pacer -Echo (05/05): EF 30-35%, w/ hypokinetic Inferior Wall motion in LV. LA moderately dilated. Severe . -Patient remained intubated after Transvenous Pacer placement and was transferred to ICU on Dobutamine gtt. 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 Salomon # Hx of TX, s/p CABG -Hx of 10 drug-eluting stents placed, w/ last stents (2) placed in July 2018 following heart catheterization -Strict I/Os -Daily Weights # DM2 -Blood Glucose: 106 on 05/15 -Lantus regimen - 75U QAM -Aggressive SSI -Humalog 15U AC -Accuchecks Q4H -Hypoglycemia Protocol -Last HgA1C was 8.1 on 04/02/2019 - will not reorder during this hospital stay # Hypothyroidism s/p Thyroidectomy -Thyroid previously removed 2/2 malignancy -TSH: 0.579 -Continue home Synthroid regimen # HLD -Previously on Atorvastatin 20 mg daily -Increase Atorvastatin to 40 mg daily -Fasting Lipid Panel: WNL # GERD -Continue home Pantoprazole regimen -Encourage proper positioning during meals # UTI -Gram Negative Rods, likely E. coli -UCx: Pending -Continue Keflex 500 mg PO Q6H Code: Full Diet: Heart Healthy / Carbohydrate Conscious Activity: Ad Sarah DVT PPx: Ticagrelor / ASA 81 Dispo: Stable, on Telemetry Floor. Cardiology/EP/Pulmonology consulted and currently following. Case Management consulted and assisting w/ in-patient rehab placement. Expected LOS <24H. Addendum - Attending - Attending Attestation Date/Time: 05/15/19 8421 I personally evaluated the patient and discussed the management with Dr. Lynch. I agree with the History, Examination, Assessment and Plan documented above with any addition or exceptions noted below. Blood sugars are well controlled. She continues to improve. Waiting on inpt rehab insurance approval. If not, will do outpt therapy.
[2019-05-15] MEDS: HumaLOG 300 UNITS/3 ML VIAL SC SCH ×3 (08:50→18:02)
[2019-05-15] MEDS: Polyethylene Glycol 3350 17 GM Packet PO SCH (08:51)
[2019-05-15] MEDS: Furosemide 20 MG TAB PO SCH ×2 (08:51→11:54)
[2019-05-15] MEDS: TICAGRELOR 90 MG TABLET PO SCH ×2 (08:51→20:46)
[2019-05-15] MEDS: Aspirin Chewable 81 MG TAB PO SCH (08:51)
[2019-05-15] MEDS: Potassium Chloride 10 MEQ TAB PO SCH (08:51)
[2019-05-15] MEDS: Betamethasone Val 0.1% OINT 15 GM TUBE TOP SCH (08:53)
[2019-05-15] MEDS: Insulin Glargine 75 UNITS in Pre-Filled Syringe 1 EACH SC SCH (08:53)
--- NOTE | 2019-05-15 10:20 | PRG ---
DATE OF SERVICE: 05/15/2019 SUBJECTIVE: This morning, doing better. No cough. No wheezing. No shortness of breath. OBJECTIVE: VITAL SIGNS: Temperature 98, pulse84, respiratory rate 16, saturations 99% on room air, blood pressure 95/63. CHEST: No wheezing or crackles. CARDIAC: Normal S1 and S2. No gallops. ABDOMEN: No masses. ASSESSMENT: Aortic stenosis, cardiac disease, congestive heart failure, cough, severe deconditioning. We are trying to get a placement. In the meantime, we will continue Thomas. We will follow. Job ID: [id number] MTDD
[2019-05-15] MEDS: HumaLOG 300 UNITS/3 ML VIAL SC PRN ×2 (11:54→17:59)
[2019-05-15] MEDS: Atorvastatin Calcium 40 MG TAB PO SCH (20:46)
[2019-05-15] MEDS: Acetaminophen 325 MG TAB PO PRN (20:48)
[2019-05-15 20:53] VITALS: BP 107/58; TEMP 98.7
--- NOTE | 2019-05-18 09:49 | DIS ---
DATE OF ADMISSION: 05/04/2019 DATE OF DISCHARGE: 05/15/2019 RESIDENT: Dioni Lynch MD. ADMITTING ATTENDING: Radha Conteh MD. DISCHARGE ATTENDING: Ziggy Cortes MD. CONSULTS: 1. Ben Salomon MD, Cardiology. 2. Gokul No MD, Pulmonology. 3. Delvis Wood MD, Electrophysiology. 4. Johnny Angeles MD, Cardiology. 5. Alex Portillo MD, Pulmonology. PROCEDURES: Chest x-ray, 05/03/2019, demonstrating cardiomegaly. EKG on 05/04/2019 demonstrating normal sinus rhythm with a right bundle branch block and a left anterior fascicular block. Chest x-ray 05/04/2019 demonstrating cardiomegaly with developing pulmonary venous congestion. EKG 05/04/2019 demonstrating normal sinus rhythm, left axis deviation, nonspecific ventricular conduction block, nonspecific ST-T changes with an increased TX interval from the prior EKG. EKG performed on 05/05/2019 demonstrating sinus rhythm with PVCs, right bundle branch block, left bundle-branch block and infarct, age undetermined. ICD placement following a sinus pause greater than 10 seconds obtained via heart catheterization. On 05/04/2019, a code occurred. On 05/06/2019, patient went into atrial fibrillation with RVR. EKG was performed on 05/06/2019 which demonstrated sinus tachycardia with well-defined P-waves, left axis deviation, left bundle branch block. EKG performed on 05/06/2019 demonstrated atrial sensing, and ventricular paced rhythm with biventricular pace per pacemaker detected. Chest x-ray performed on 05/08/2019, demonstrating cardiomegaly. PRIMARY DIAGNOSIS: Paroxysmal third-degree atrioventricular block, status post biventricular AICD placement. SECONDARY DIAGNOSES: Atypical chest pain, atrial fibrillation with rapid ventricular response, history of myocardial infarction, status post coronary artery bypass grafting, coronary artery disease, diabetes type 2, hypothyroidism, hyperlipidemia, gastroesophageal reflux disease. DISCHARGE MEDICATIONS: Atorvastatin calcium 40 mg p.o. daily. DISCONTINUED MEDICATIONS: 1. Acetaminophen 650 mg p.o. q.4. 2. Aspirin 81 mg p.o. daily. 3. Atorvastatin calcium 20 mg p.o. daily. 4. Furosemide 20 mg p.o. b.i.d. 5. Robitussin DM 10 mg p.o. q.4 hours p.r.n. 6. Lantus 75 mg q.a.m. 7. Insulin human lispro as part of an aggressive sliding scale insulin protocol. 8. Levothyroxine sodium 25 mcg p.o. daily. 9. Levothyroxine sodium 112 mcg p.o. daily. 10. Dulera two puffs b.i.d. 11. Nitroglycerin 0.4 mg sublingual. 12. Protonix 40 mg p.o. daily. 13. MiraLAX 17 g p.o. daily. 14. Potassium chloride 10 mEq p.o. daily. 15. Ticagrelor 90 mg p.o. b.i.d. HISTORY OF PRESENT ILLNESS AND HOSPITAL COURSE: Ms. Shaw is a 73-year-old female with an extensive past medical history significant for coronary artery disease, status post CABG, previous [place] presents to the ED with symptoms of substernal chest pain with radiation to the jaw and neck. Pain was dull and describes as a pressure-like. Nothing was able to relieve the patient's pain. She took multiple doses of nitroglycerin at home before she presented to the ED. On arrival to the ED, multiple imaging and lab values are taken, imaging values are referenced elsewhere in this document. She had an initial rise of troponins to 0.039 to 0.504 to 2.33 prompting her right heart catheterization. Following her catheterization, she had a 10 second pause per cardiac rhythm at which time she was rushed to the laborer beam house and had a transvenous pacer placed. Subsequently, she was consulted by Dr. Delvis Wood to place an additional biventricular pacemaker. Her condition improved greatly during her time at the hospital. However, there were multiple difficulties with maintaining her blood glucose as she has poorly controlled diabetes and also multiple problems and admitting her to the inpatient rehab as there was a discrepancy between [facility] inpatient rehab facilities and her insurance plan. Nevertheless, she was ultimately cleared for transfer on 05/15/2019, and was placed in inpatient rehab in [place], [place] with a plan to eventually transition to outpatient cardiac rehab after her extensive cardiac workup performed here in the hospital. She then plans to go to [place], [place] in order to have an aortic valve replacement procedure. Prior to discharge, her vital signs revealed a temperature of 98.7, pulse of 83, blood pressure of 107/58, respirations of 18 per minute, O2 saturations of 98% on room air. LABORATORY ANALYSIS: Revealed a white blood cell count of 5.2, hemoglobin 8.7, hematocrit 26, platelet count 76. Activated clotting time was 168 demonstrated on 05/04/2019. Chem panel revealed a sodium of 133, potassium 3.7, chloride 98, carbon dioxide 25, BUN 11, creatinine 0.74, glucose 209, calcium 8, phosphorus 3.9, magnesium 1.7, alkaline phosphatase 101. Creatine kinase 55, CK-MB 3.7, down from a high of 21 on 05/04/2019. BNP of 1564, triglycerides 129, cholesterol 101, LDL 43, HDL 72. TSH 0.5786. DISPOSITION: Stable. DISCHARGE INSTRUCTION: 1. Location: Inpatient rehab. 2. Diet: Heart healthy, carbohydrate conscious. 3. Activity: Cardiopulmonary restrictions as dictated by inpatient rehab facility. 4. Followup: The patient was encouraged to follow up with previously established primary care physician and acid concentrator within the [place] area in 14 days. Additionally, she was encouraged to follow up with Dr. Delvis Wood, coffee taster on 05/18/2019. Dr. Ben Salomon, Cardiology, as needed. Overall, the patient's condition improved greatly during her time in the hospital. Her advanced coronary artery disease and advanced history of cardiac intervention . The patient was encouraged to adhere to her medication regimen as prescribed. Complete inpatient rehab, complete outpatient rehab and follow up as needed and avoid additional complications in order to avoid additional complications. She was pleased with her care while at [facility] in [place], [place], and had no complaints during her time. Job ID: [id number]
== END 2019-05-15 21:19 | DRG 222 ==
LOC: ERS 21:11 → 2NO 05-04 00:35 → CCU 05-05 10:32 → IMCU/EMU 05-07 23:18 → 2NO 05-08 21:37
PROVIDERS: ADMIT Family Medicine; ATTEND Family Medicine
PROC: 027135Z Dilation of Coronary Artery, Two Arteries with Two Drug-eluting Intraluminal Devices, Percutaneous Approach (ICD-10-PCS; 2019-05-04)
PROC: 4A023N7 Measurement of Cardiac Sampling and Pressure, Left Heart, Percutaneous Approach (ICD-10-PCS; 2019-05-04)
PROC: 02C03ZZ Extirpation of Matter from Coronary Artery, One Artery, Percutaneous Approach (ICD-10-PCS; 2019-05-04)
PROC: B2111ZZ Fluoroscopy of Multiple Coronary Arteries using Low Osmolar Contrast (ICD-10-PCS; 2019-05-04)
PROC: B2181ZZ Fluoroscopy of Left Internal Mammary Bypass Graft using Low Osmolar Contrast (ICD-10-PCS; 2019-05-04)
PROC: B2121ZZ Fluoroscopy of Single Coronary Artery Bypass Graft using Low Osmolar Contrast (ICD-10-PCS; 2019-05-04)
PROC: B3101ZZ Fluoroscopy of Thoracic Aorta using Low Osmolar Contrast (ICD-10-PCS; 2019-05-04)
PROC: 5A1223Z Performance of Cardiac Pacing, Continuous (ICD-10-PCS; principal; 2019-05-05)
PROC: B2111ZZ Fluoroscopy of Multiple Coronary Arteries using Low Osmolar Contrast (ICD-10-PCS; 2019-05-05)
PROC: 5A12012 Performance of Cardiac Output, Single, Manual (ICD-10-PCS; 2019-05-05)
PROC: 3E033XZ Introduction of Vasopressor into Peripheral Vein, Percutaneous Approach (ICD-10-PCS; 2019-05-05)
PROC: 0BH17EZ Insertion of Endotracheal Airway into Trachea, Via Natural or Artificial Opening (ICD-10-PCS; 2019-05-05)
PROC: 5A1945Z Respiratory Ventilation, 24-96 Consecutive Hours (ICD-10-PCS; 2019-05-05)
PROC: 0JH608Z Insertion of Defibrillator Generator into Chest Subcutaneous Tissue and Fascia, Open Approach (ICD-10-PCS; 2019-05-06)
PROC: 02HL3KZ Insertion of Defibrillator Lead into Left Ventricle, Percutaneous Approach (ICD-10-PCS; 2019-05-06)
PROC: 02HK3KZ Insertion of Defibrillator Lead into Right Ventricle, Percutaneous Approach (ICD-10-PCS; 2019-05-06)
PROC: 4A023N8 Measurement of Cardiac Sampling and Pressure, Bilateral, Percutaneous Approach (ICD-10-PCS; 2019-05-06)
DX: I21.4 Non-ST elevation (NSTEMI) myocardial infarction (principal); I46.9 Cardiac arrest, cause unspecified; I50.43 Acute on chronic combined systolic (congestive) and diastolic (congestive) heart failure; J96.01 Acute respiratory failure with hypoxia; I44.2 Atrioventricular block, complete; N39.0 Urinary tract infection, site not specified; I25.110 Atherosclerotic heart disease of native coronary artery with unstable angina pectoris; I35.0 Nonrheumatic aortic (valve) stenosis; E11.9 Type 2 diabetes mellitus without complications; K21.9 Gastro-esophageal reflux disease without esophagitis; E78.5 Hyperlipidemia, unspecified; I45.10 Unspecified right bundle-branch block; M19.90 Unspecified osteoarthritis, unspecified site; D69.6 Thrombocytopenia, unspecified; K74.60 Unspecified cirrhosis of liver; K76.0 Fatty (change of) liver, not elsewhere classified; D50.9 Iron deficiency anemia, unspecified; J44.9 Chronic obstructive pulmonary disease, unspecified; E03.9 Hypothyroidism, unspecified; I11.0 Hypertensive heart disease with heart failure; I25.5 Ischemic cardiomyopathy; I49.5 Sick sinus syndrome; F31.9 Bipolar disorder, unspecified; E66.01 Morbid (severe) obesity due to excess calories; I48.0 Paroxysmal atrial fibrillation; G47.33 Obstructive sleep apnea (adult) (pediatric); B96.20 Unspecified Escherichia coli [E. coli] as the cause of diseases classified elsewhere; T85.838A Hemorrhage due to other internal prosthetic devices, implants and grafts, initial encounter; Y84.8 Other medical procedures as the cause of abnormal reaction of the patient, or of later complication, without mention of misadventure at the time of the procedure; Z90.710 Acquired absence of both cervix and uterus; Z87.891 Personal history of nicotine dependence; Z68.32 Body mass index [BMI] 32.0-32.9, adult; Z85.850 Personal history of malignant neoplasm of thyroid; Z90.722 Acquired absence of ovaries, bilateral; Z86.718 Personal history of other venous thrombosis and embolism; Z95.1 Presence of aortocoronary bypass graft; Z95.5 Presence of coronary angioplasty implant and graft; Z88.5 Allergy status to narcotic agent; Z91.048 Other nonmedicinal substance allergy status; Z79.02 Long term (current) use of antithrombotics/antiplatelets; Z79.82 Long term (current) use of aspirin; Z79.4 Long term (current) use of insulin; Z79.899 Other long term (current) drug therapy; I25.2 Old myocardial infarction; Z85.43 Personal history of malignant neoplasm of ovary; Z85.42 Personal history of malignant neoplasm of other parts of uterus
CPT/HCPCS: 33210; 33225; 33249; 36005; 36415; 36416; 71045; 71275; 75820; 76942; 80048; 80053; 80061; 81001; 82550; 82553; 82805; 83735; 83880; 84100; 84443; 84484; 85025; 85347; 87086; 92928; 92950; 92973; 93005; 93010; 93306; 93454; 93455; 93460; 93561; 93567; 94002; 94003; 94640; 94760; 96361; 96365; 96366; 96372; 96374; 99152; 99153; C1725; C1757; C1769; C1777; C1874; C1882; C1887; C1898; C1900; C9600; J0153; J0282; J0461; J0690; J0692; J1100; J1265; J1644; J1650; J1815; J1940; J2001; J2060; J2250; J2270; J2704; J3010; J3246; J3490; J7620; Q9966; Q9967